=== PATIENT | female | born 1970 | race Caucasian/White ===

== ENCOUNTER 2017-11-02 05:54 | Inpatient (IN) | payer MEDICAID ==
[~2017-11-02] VITALS: Ht 180.3 cm; Wt 123.6 kg
[~2017-11-02 05:54] MED LIST: AMLO5TAB2 PO; ASPI81CH43 PO; Atorvastatin Calcium PO; CARV6.2551 PO; FURO40TA4 PO; GLY5T PO; LOSA50TA6 PO; METF-370 PO; POTA20TA53 PO; TRAM50TA2 PO
[2017-11-02 06:43] LABS: Basophils # (auto) 0.1 uL; Basophils % (auto) 1.1 % (0.0-2.0); Eosinophils # (auto) 0.2 uL; Eosinophils % (auto) 2.1 % (0.0-7.0); Hematocrit 44.5 % (36.0-46.0); Hemoglobin 14.9 g/dL (12.2-16.2); Lymphocytes # (auto) 1.5 uL; Lymphocytes % (auto) 13.7 % (10.0-50.0); Mean Corpuscular Hemoglobin 28.8 pg (28.0-32.0); Mean Corpuscular Hgb Conc. 33.5 g/dL (32.0-36.0); Mean Corpuscular Volume 86.1 fL (80.0-100.0); Monocytes # (auto) 0.6 uL; Monocytes % (auto) 5.1 % (0.0-12.0); Neutrophils # (auto) 8.6 uL; Nucleated Red Blood Cells % 0.2 %; Platelet Count (auto) 276 10^3/uL (140-450); Red Blood Cells 5.17 10^6/uL (4.0-5.20); Red Cell Distribution Width 16.8 % (11.8-14.3)
[2017-11-02 06:57] LABS: INR 0.98 (0.9-1.15); Partial Thromboplastin Time 26.9 sec (23.78-33.04); Prothrombin Time 10.5 sec (9.27-12.13)
[2017-11-02 07:04] LABS: BUN/Creatinine Ratio 11.5; Calcium 7.7 mg/dL (8.5-10.1); Magnesium 2.2 mg/dL (1.6-2.6); Potassium 3.7 mmol/L (3.5-5.1)
[2017-11-02 07:19] LABS: Bilirubin, Total 1.3 mg/dL (0.2-1.0); Total Protein 7.4 g/dL (6.4-8.2)
[2017-11-02] MEDS ORDERED: methylPREDNISolone SOD SUCC 125 MG/2 ML VL IV ONE (07:45)
[2017-11-02] MEDS ORDERED: ENOXAPARIN SOD 150 MG/1 ML SYRINGE SC ONE (07:45)
[2017-11-02] MEDS ORDERED: ASPirin 81 mg TAB PO ONE (07:45)
[2017-11-02] MEDS ORDERED: ONDANSETRON HCL 4 MG/2 ML VIAL IV ONE (07:45)
[2017-11-02] MEDS ORDERED: MORPHINE SULFATE 8mg/ml INJ SDV IV ONE (07:45)
[2017-11-02] MEDS ORDERED: InsuLIN REG 1unit/0.01ml Soln (100units/ml) IV ONE (08:15)
[2017-11-02] MEDS ORDERED: FUROSEMIDE 40 MG/4 ML VIAL IV ONE (08:15)
[2017-11-02] MEDS ORDERED: LACTULOSE 20Gm/30ML SOLN PO PRN (08:30)
[2017-11-02] MEDS ORDERED: NITROGLYCERIN 0.4 MG SL TAB SL PRN (08:30)
[2017-11-02] MEDS ORDERED: MORPHINE SULFATE 8mg/ml INJ SDV IV PRN (08:45)
[2017-11-02] MEDS ORDERED: TEMAZEPAM 15 MG CAP PO PRN (08:45)
[2017-11-02] MEDS ORDERED: ACETAMINOPHEN 500 MG TAB PO PRN (08:45)
[2017-11-02] MEDS ORDERED: ALBUTEROL SULF 2.5 MG/0.5ML(0.5%) NEB SOLN NEB PRN (08:45)
[2017-11-02] MEDS ORDERED: DEXTROSE (50%) 50ML SYRG IV PRN (08:45)
[2017-11-02] MEDS ORDERED: HYDROcodone-ACET 5/325MG TAB PO PRN (08:45)
[2017-11-02] MEDS ORDERED: hydrALAZINE HCL 25 MG TAB PO PRN (09:30)
[2017-11-02] MEDS ORDERED: CLOPIDOGREL 300 MG TAB PO ONE (09:45)
[2017-11-02] MEDS ORDERED: BUMETANIDE (0.25MG/ML) 4 ML VIAL IV ONE (09:45)
[2017-11-02] MEDS ORDERED: FUROSEMIDE 40 MG/4 ML VIAL IV SCH (10:00)
[2017-11-02] MEDS ORDERED: NITROGLYCERIN 0.4 MG SL TAB SL ONE (10:00)
[2017-11-02] MEDS ORDERED: CARVEDILOL 3.125 MG TAB PO SCH (10:00)
[2017-11-02] MEDS ORDERED: ENALAPRIL MALEATE 2.5 MG TAB PO SCH (10:00)
[2017-11-02] MEDS ORDERED: cloNIDine 0.3 mg/24hr 7DAY PATCH TD SCH (10:00)
[2017-11-02] MEDS: PROMETHAZINE HCL 25 MG/ML 1ML IV PRN ×2 (10:45→23:59)
[2017-11-02] MEDS: MORPHINE SULFATE 8mg/ml INJ SDV IV PRN ×2 (10:45→23:59)
[2017-11-02] MEDS: cefTRIAXone 1GM/10ml IVPUSH 10 ML IV SCH (10:45)
[2017-11-02] MEDS: POTASSIUM CHL 20 Meq TABLET PO SCH (10:47)
[2017-11-02] MEDS: ENALAPRIL MALEATE 2.5 MG TAB PO SCH ×2 (10:47→22:10)
[2017-11-02] MEDS: LOSARTAN POTASSIUM 50 MG TAB PO SCH (10:48)
[2017-11-02] MEDS: PANTOPRAZOLE 40 MG TAB PO SCH (10:48)
[2017-11-02] MEDS: CARVEDILOL 12.5 MG TAB PO SCH ×2 (10:48→22:10)
[2017-11-02] MEDS: LORazepam 0.5 MG TAB PO PRN (10:49)
[2017-11-02] MEDS: glyBURIDE 5 MG TAB PO SCH ×2 (10:49→18:04)
[2017-11-02] MEDS: amLODIPine BESYLATE 5 MG TAB PO SCH (10:50)
[2017-11-02] MEDS: NITROGLYCERIN 50MG/250ML 250 ML IV SCH (11:10)
[2017-11-02 11:40] LABS: Urine Bacteria NONE SEEN /hpf (None Seen); Urine Blood Negative /uL (Negative); Urine Hyaline Cast FEW /lpf (0 - 2); Urine Specific Gravity 1.025 (1.001-1.035); Urine WBC 1 /hpf (0 - 5)
[2017-11-02 11:56] LABS: Alcohol, Urine < 3.0 mg/dL (0-5); Amphetamine Screen, Urine POSITIVE (NEGATIVE); Barbiturate Scree,Urine NEGATIVE (NEGATIVE); Benzodiazephine Screen, Urine NEGATIVE (NEGATIVE); Cannabinoid Screen, Urine NEGATIVE (NEGATIVE); Cocaine Screen, Urine NEGATIVE (NEGATIVE); Opiate Scree,Urine NEGATIVE (NEGATIVE); Phencyclidine Screen, Urine NEGATIVE (NEGATIVE)
[2017-11-02] MEDS: IPRATROPIUM BROM 0.5 MG/2.5ML INH SOL NEB SCH ×2 (12:00→18:40)
[2017-11-02] MEDS: ALBUTEROL SULF 2.5 MG/0.5ML(0.5%) NEB SOLN NEB SCH ×2 (12:00→18:40)
[2017-11-02] MEDS: ACCU-CHEK COMFORT CURVE STRIP VI SCH ×3 (12:14→20:11)
[2017-11-02] MEDS: InsuLIN REG 1unit/0.01ml Soln (100units/ml) SC SCH ×3 (12:15→20:11)
[2017-11-02] MEDS: ISOSORBIDE DINITRATE 10 MG TAB PO SCH ×2 (12:28→18:04)
[2017-11-02] MEDS: FUROSEMIDE 40 MG/4 ML VIAL IV SCH (18:03)
[2017-11-02] MEDS: methylPREDNISolone SOD SUCC 40 MG/ML VL IV SCH (20:11)
[2017-11-02] MEDS: ENOXAPARIN SOD 120 MG/0.8 ML SYRINGE SC SCH (20:12)
[2017-11-02 21:18] VITALS: BP 112/67
[2017-11-02] MEDS ORDERED: ATORVASTATIN CALCIUM LIPITOR PO SCH (22:00)
[2017-11-02] MEDS ORDERED: ATORVASTATIN 20 MG TAB PO SCH (22:00)
[2017-11-02] MEDS: ATORVASTATIN 20 MG TAB PO SCH (22:10)
[2017-11-03] MEDS: ACCU-CHEK COMFORT CURVE STRIP VI SCH ×6 (00:04→21:07)
[2017-11-03] MEDS: InsuLIN REG 1unit/0.01ml Soln (100units/ml) SC SCH ×6 (00:05→20:00)
[2017-11-03] MEDS: ALBUTEROL SULF 2.5 MG/0.5ML(0.5%) NEB SOLN NEB SCH ×4 (00:55→18:50)
[2017-11-03] MEDS: IPRATROPIUM BROM 0.5 MG/2.5ML INH SOL NEB SCH ×4 (00:55→18:50)
[2017-11-03 05:32] LABS: Basophils # (auto) 0 uL; Basophils % (auto) 0.2 % (0.0-2.0); Eosinophils # (auto) 0 uL; Hematocrit 40.6 % (36.0-46.0); Hemoglobin 13.4 g/dL (12.2-16.2); Lymphocytes % (auto) 6.4 % (10.0-50.0); Mean Corpuscular Hemoglobin 28.4 pg (28.0-32.0); Mean Corpuscular Hgb Conc. 33.1 g/dL (32.0-36.0); Mean Corpuscular Volume 85.9 fL (80.0-100.0); Monocytes # (auto) 0.5 uL; Neutrophils # (auto) 14.6 uL; Neutrophils % (auto) 90.4 % (37.0-80.0); Platelet Count (auto) 332 10^3/uL (140-450); Red Blood Cells 4.73 10^6/uL (4.0-5.20); White Blood Cell 16.1 10^3/uL (4.4-10.8)
[2017-11-03 05:50] LABS: Albumin 2.6 g/dL (3.4-5.0); BUN/Creatinine Ratio 16.3; Bilirubin, Total 0.6 mg/dL (0.2-1.0); Calcium 8.3 mg/dL (8.5-10.1); Potassium 4.3 mmol/L (3.5-5.1); Total Protein 6.7 g/dL (6.4-8.2)
[2017-11-03] MEDS: FUROSEMIDE 40 MG/4 ML VIAL IV SCH ×2 (06:00→19:04)
[2017-11-03] MEDS: ISOSORBIDE DINITRATE 10 MG TAB PO SCH ×3 (06:00→19:02)
[2017-11-03] MEDS: MORPHINE SULFATE 8mg/ml INJ SDV IV PRN (06:32)
[2017-11-03] MEDS: glyBURIDE 5 MG TAB PO SCH ×2 (06:59→19:02)
[2017-11-03] MEDS: methylPREDNISolone SOD SUCC 40 MG/ML VL IV SCH (08:12)
[2017-11-03] MEDS: ENOXAPARIN SOD 120 MG/0.8 ML SYRINGE SC SCH ×2 (08:12→21:07)
[2017-11-03] MEDS: cefTRIAXone 1GM/10ml IVPUSH 10 ML IV SCH (09:16)
[2017-11-03] MEDS ORDERED: CLOPIDOGREL BISULFATE 75 MG TAB PO ONE (10:00)
[2017-11-03] MEDS: POTASSIUM CHL 20 Meq TABLET PO SCH (10:19)
[2017-11-03] MEDS: ASPirin 81 mg TAB PO SCH (10:19)
[2017-11-03] MEDS: PANTOPRAZOLE 40 MG TAB PO SCH (10:19)
[2017-11-03] MEDS: CARVEDILOL 12.5 MG TAB PO SCH ×3 (10:20→23:00)
[2017-11-03] MEDS: NITROGLYCERIN 50MG/250ML 250 ML IV SCH (10:20)
[2017-11-03] MEDS: LOSARTAN POTASSIUM 50 MG TAB PO SCH (10:20)
[2017-11-03] MEDS: amLODIPine BESYLATE 5 MG TAB PO SCH (10:20)
[2017-11-03] MEDS: ENALAPRIL MALEATE 2.5 MG TAB PO SCH ×2 (10:20→22:02)
[2017-11-03 19:41] VITALS: BP 134/78
[2017-11-03 20:00] VITALS: BP 134/78
[2017-11-03] MEDS: ATORVASTATIN 20 MG TAB PO SCH (22:02)
[2017-11-04] VITALS: BP 123/76
[2017-11-04] MEDS: ALBUTEROL SULF 2.5 MG/0.5ML(0.5%) NEB SOLN NEB SCH ×4 (01:10→18:51)
[2017-11-04] MEDS: IPRATROPIUM BROM 0.5 MG/2.5ML INH SOL NEB SCH ×4 (01:10→18:51)
[2017-11-04] MEDS: ACCU-CHEK COMFORT CURVE STRIP VI SCH ×5 (04:03→21:24)
[2017-11-04] MEDS: InsuLIN REG 1unit/0.01ml Soln (100units/ml) SC SCH ×6 (04:04→17:44)
[2017-11-04 05:15] LABS: Basophils # (auto) 0.1 uL; Basophils % (auto) 0.9 % (0.0-2.0); Eosinophils # (auto) 0.1 uL; Eosinophils % (auto) 0.6 % (0.0-7.0); Hematocrit 41.1 % (36.0-46.0); Hemoglobin 13.5 g/dL (12.2-16.2); Lymphocytes # (auto) 2.7 uL; Lymphocytes % (auto) 18.5 % (10.0-50.0); Mean Corpuscular Hemoglobin 28.2 pg (28.0-32.0); Mean Corpuscular Hgb Conc. 32.9 g/dL (32.0-36.0); Mean Corpuscular Volume 85.9 fL (80.0-100.0); Monocytes % (auto) 6.7 % (0.0-12.0); Neutrophils # (auto) 10.8 uL; Neutrophils % (auto) 73.3 % (37.0-80.0); Platelet Count (auto) 334 10^3/uL (140-450); Red Blood Cells 4.79 10^6/uL (4.0-5.20); Red Cell Distribution Width 16.5 % (11.8-14.3); White Blood Cell 14.8 10^3/uL (4.4-10.8)
[2017-11-04 05:42] LABS: Calcium 8.3 mg/dL (8.5-10.1); Magnesium 2.2 mg/dL (1.6-2.6); Potassium 3.4 mmol/L (3.5-5.1)
[2017-11-04 05:50] LABS: BUN/Creatinine Ratio 25.4
[2017-11-04] MEDS: FUROSEMIDE 40 MG/4 ML VIAL IV SCH ×2 (06:00→17:43)
[2017-11-04] MEDS: ISOSORBIDE DINITRATE 10 MG TAB PO SCH ×3 (06:00→17:44)
[2017-11-04 07:00] VITALS: BP 118/78
[2017-11-04] MEDS: glyBURIDE 5 MG TAB PO SCH ×2 (07:18→17:43)
[2017-11-04] MEDS: MORPHINE SULFATE 8mg/ml INJ SDV IV PRN (07:22)
[2017-11-04 08:00] VITALS: BP 115/53
[2017-11-04] MEDS: ENOXAPARIN SOD 120 MG/0.8 ML SYRINGE SC SCH (08:27)
[2017-11-04] MEDS: cefTRIAXone 1GM/10ml IVPUSH 10 ML IV SCH (08:30)
[2017-11-04] MEDS: ASPirin 81 mg TAB PO SCH (10:22)
[2017-11-04] MEDS: PANTOPRAZOLE 40 MG TAB PO SCH (10:23)
[2017-11-04] MEDS: CARVEDILOL 12.5 MG TAB PO SCH ×2 (10:23→21:17)
[2017-11-04] MEDS: POTASSIUM CHL 20 Meq TABLET PO SCH (10:23)
[2017-11-04] MEDS: ENALAPRIL MALEATE 2.5 MG TAB PO SCH ×2 (10:25→22:20)
[2017-11-04 11:49] VITALS: BP 114/66
[2017-11-04] MEDS ORDERED: DEXTROSE (50%) 50ML SYRG IV PRN (12:00)
[2017-11-04] MEDS ORDERED: POTASSIUM CHL 20 Meq TABLET PO ONE (12:00)
[2017-11-04] MEDS ORDERED: ENA2.5T PO (12:03)
[2017-11-04] MEDS ORDERED: ISOS10TA2 PO (12:03)
[2017-11-04] MEDS ORDERED: CAR125T PO (12:03)
[2017-11-04] MEDS ORDERED: HYDR25TA35 PO (12:03)
[2017-11-04] MEDS ORDERED: CLO3P TD (12:03)
[2017-11-04 16:00] VITALS: BP 126/77
[2017-11-04] MEDS: traMADol HCL 50 MG TAB PO PRN (18:30)
[2017-11-04 19:43] VITALS: BP 116/61
[2017-11-04] MEDS: ATORVASTATIN 20 MG TAB PO SCH (21:18)
[2017-11-04] MEDS ORDERED: InsuLIN REG 1unit/0.01ml Soln (100units/ml) SC SCH (22:00)
[2017-11-05] MEDS: IPRATROPIUM BROM 0.5 MG/2.5ML INH SOL NEB SCH ×3 (00:44→11:49)
[2017-11-05] MEDS: ALBUTEROL SULF 2.5 MG/0.5ML(0.5%) NEB SOLN NEB SCH ×3 (00:44→11:49)
[2017-11-05 05:00] VITALS: BP 127/91
[2017-11-05] MEDS: traMADol HCL 50 MG TAB PO PRN (05:11)
[2017-11-05] MEDS: ISOSORBIDE DINITRATE 10 MG TAB PO SCH ×2 (05:43→15:15)
[2017-11-05] MEDS: FUROSEMIDE 40 MG/4 ML VIAL IV SCH (05:43)
[2017-11-05 06:07] LABS: Basophils # (auto) 0.1 uL; Basophils % (auto) 0.7 % (0.0-2.0); Eosinophils # (auto) 0.3 uL; Eosinophils % (auto) 3.1 % (0.0-7.0); Lymphocytes % (auto) 21.7 % (10.0-50.0); Mean Corpuscular Hemoglobin 28.4 pg (28.0-32.0); Mean Corpuscular Hgb Conc. 32.6 g/dL (32.0-36.0); Monocytes # (auto) 0.8 uL; Monocytes % (auto) 8.8 % (0.0-12.0); Neutrophils # (auto) 6.1 uL; Neutrophils % (auto) 65.7 % (37.0-80.0); Nucleated Red Blood Cells % 0.2 %; Platelet Count (auto) 314 10^3/uL (140-450); Red Blood Cells 4.94 10^6/uL (4.0-5.20); Red Cell Distribution Width 16.8 % (11.8-14.3); White Blood Cell 9.2 10^3/uL (4.4-10.8)
[2017-11-05] MEDS: ACCU-CHEK COMFORT CURVE STRIP VI SCH ×2 (06:16→11:52)
[2017-11-05] MEDS: InsuLIN REG 1unit/0.01ml Soln (100units/ml) SC SCH ×2 (06:23→12:29)
[2017-11-05 06:25] LABS: Calcium 7.9 mg/dL (8.5-10.1); Potassium 3.8 mmol/L (3.5-5.1)
[2017-11-05 06:28] LABS: BUN/Creatinine Ratio 25.7
[2017-11-05] MEDS: glyBURIDE 5 MG TAB PO SCH (06:28)
[2017-11-05 08:00] VITALS: BP 138/76
[2017-11-05] MEDS: ASPirin 81 mg TAB PO SCH (11:50)
[2017-11-05] MEDS: CARVEDILOL 12.5 MG TAB PO SCH (11:51)
[2017-11-05] MEDS: PANTOPRAZOLE 40 MG TAB PO SCH (11:51)
[2017-11-05] MEDS: POTASSIUM CHL 20 Meq TABLET PO SCH (11:51)
[2017-11-05] MEDS: ENALAPRIL MALEATE 2.5 MG TAB PO SCH (11:52)
[2017-11-05 12:00] VITALS: BP 140/90
[2017-11-05] MEDS: LORazepam 0.5 MG TAB PO PRN (12:30)
[2017-11-05 13:24] VITALS: BP 140/90
== END 2017-11-05 14:15 | disposition home or self-care (01) | DRG 194 ==
LOC: EDBD 05:54 → ER 06:00 → TELE 06:01 → DOU IN ICU 11-03 18:34 → TELE-EAST 11-04 23:00
PROVIDERS: ADMIT Internal Medicine; ATTEND Internal Medicine
DX: I13.0 Hypertensive heart and chronic kidney disease with heart failure and stage 1 through stage 4 chronic kidney disease, or unspecified chronic kidney disease (principal); J96.21 Acute and chronic respiratory failure with hypoxia; I21.4 Non-ST elevation (NSTEMI) myocardial infarction; I50.43 Acute on chronic combined systolic (congestive) and diastolic (congestive) heart failure; E11.21 Type 2 diabetes mellitus with diabetic nephropathy; E66.01 Morbid (severe) obesity due to excess calories; I42.9 Cardiomyopathy, unspecified; J44.9 Chronic obstructive pulmonary disease, unspecified; I11.0 Hypertensive heart disease with heart failure; E87.1 Hypo-osmolality and hyponatremia; I16.0 Hypertensive urgency; N18.9 Chronic kidney disease, unspecified; E11.22 Type 2 diabetes mellitus with diabetic chronic kidney disease; E11.65 Type 2 diabetes mellitus with hyperglycemia; F20.9 Schizophrenia, unspecified; F41.9 Anxiety disorder, unspecified; F32.9 Major depressive disorder, single episode, unspecified; K59.00 Constipation, unspecified; G47.00 Insomnia, unspecified; D72.829 Elevated white blood cell count, unspecified; F15.10 Other stimulant abuse, uncomplicated; I25.119 Atherosclerotic heart disease of native coronary artery with unspecified angina pectoris; Z80.1 Family history of malignant neoplasm of trachea, bronchus and lung; Z80.3 Family history of malignant neoplasm of breast; Z80.41 Family history of malignant neoplasm of ovary; Z68.38 Body mass index [BMI] 38.0-38.9, adult; Z80.8 Family history of malignant neoplasm of other organs or systems; Z81.8 Family history of other mental and behavioral disorders; Z82.0 Family history of epilepsy and other diseases of the nervous system; Z82.3 Family history of stroke; Z82.49 Family history of ischemic heart disease and other diseases of the circulatory system; Z79.899 Other long term (current) drug therapy; Z90.49 Acquired absence of other specified parts of digestive tract; Z83.3 Family history of diabetes mellitus; Z82.62 Family history of osteoporosis; Z87.891 Personal history of nicotine dependence; Z71.51 Drug abuse counseling and surveillance of drug abuser; Z91.14 Patient's other noncompliance with medication regimen; Z91.19 Patient's noncompliance with other medical treatment and regimen; Z95.810 Presence of automatic (implantable) cardiac defibrillator; Z99.81 Dependence on supplemental oxygen
CPT/HCPCS: 36415; 51702; 71045; 80048; 80053; 80061; 80307; 81001; 82550; 82962; 83036; 83735; 83880; 84443; 84484; 85025; 85379; 85610; 85652; 85730; 86141; 87081; 93005; 93306; 94640; 94761; 96372; 96374; 96375; 99291; J1815; J2270; J2405

== ENCOUNTER 2018-06-08 19:43 | Emergency (ER) | payer MEDICAID ==
[~2018-06-08] VITALS: Ht 177.8 cm; Wt 81.6 kg
[~2018-06-08 19:43] MED LIST changes: -AMLO5TAB2 PO; +CAR125T PO; +CLO3P TD; +ENA2.5T PO; +ISOS10TA2 PO; +LISI-646 PO; +LOSA-46 PO; -LOSA50TA6 PO; +TICA90TA PO
[2018-06-08 19:53] VITALS: BP 188/119
[2018-06-08] MEDS ORDERED: METOPROLOL TARTRATE 25 MG TAB PO ONE (20:30)
== END 2018-06-08 21:58 | disposition left against medical advice (07) ==
LOC: EDBD 19:43 → ER 19:43
DX: R07.89 Other chest pain (principal); Z53.21 Procedure and treatment not carried out due to patient leaving prior to being seen by health care provider
CPT/HCPCS: 93005

== ENCOUNTER 2018-06-09 02:18 | Inpatient (IN) | payer MEDICAID ==
[~2018-06-09] VITALS: Ht 177.8 cm; Wt 97.9 kg
[2018-06-09 07:07] LABS: Basophils # (auto) 0.2 uL; Basophils % (auto) 1.4 % (0.0-2.0); Eosinophils # (auto) 0.1 uL; Eosinophils % (auto) 1.4 % (0.0-7.0); Hematocrit 49.8 % (36.0-46.0); Hemoglobin 16.5 g/dL (12.2-16.2); Lymphocytes # (auto) 1.8 uL; Lymphocytes % (auto) 16.7 % (10.0-50.0); Mean Corpuscular Hemoglobin 28.4 pg (28.0-32.0); Mean Corpuscular Hgb Conc. 33.1 g/dL (32.0-36.0); Mean Corpuscular Volume 85.9 fL (80.0-100.0); Monocytes # (auto) 0.5 uL; Monocytes % (auto) 4.6 % (0.0-12.0); Neutrophils # (auto) 8.2 uL; Neutrophils % (auto) 75.9 % (37.0-80.0); Nucleated Red Blood Cells % 0.3 %; Platelet Count (auto) 338 10^3/uL (140-450); Red Blood Cells 5.79 10^6/uL (4.0-5.20); Red Cell Distribution Width 16.5 % (11.8-14.3); White Blood Cell 10.8 10^3/uL (4.4-10.8)
[2018-06-09 07:25] LABS: Albumin 3.3 g/dL (3.4-5.0); Calcium 8.5 mg/dL (8.5-10.1); Magnesium 2.2 mg/dL (1.6-2.6); Potassium 4.7 mmol/L (3.5-5.1)
[2018-06-09 07:44] LABS: BUN/Creatinine Ratio 11.5; Bilirubin, Total 1.1 mg/dL (0.2-1.0)
[2018-06-09] MEDS ORDERED: NITROGLYCERIN 0.4 MG SL TAB SL ONE (08:00)
[2018-06-09] MEDS ORDERED: ASPirin 81 mg TAB PO ONE (08:00)
[2018-06-09] MEDS ORDERED: FUROSEMIDE 20 MG/2 ML VIAL IV ONE (08:00)
[2018-06-09] MEDS ORDERED: ENOXAPARIN SOD 100 MG/1 ML SYRINGE SC ONE ×2 (08:00→17:00)
[2018-06-09] MEDS ORDERED: LABETALOL HCL 5 MG/ML ML 20ML VIAL IV ONE (08:30)
[2018-06-09] MEDS ORDERED: LORazepam 2MG/ML-1ML VIAL IV ONE (08:30)
[2018-06-09] MEDS ORDERED: NITROGLYCERIN 50MG/250ML 250 ML IV SCH (09:40)
[2018-06-09] MEDS ORDERED: cloNIDine 0.3 mg/24hr 7DAY PATCH TD SCH (09:45)
[2018-06-09] MEDS ORDERED: MORPHINE SULFATE 10 MG/ML INJ 1ML SDV IV PRN (09:45)
[2018-06-09] MEDS ORDERED: PROMETHAZINE HCL 25 MG/ML 1ML IV PRN (09:45)
[2018-06-09] MEDS ORDERED: ACETAMINOPHEN 500 MG TAB PO PRN (09:45)
[2018-06-09] MEDS ORDERED: DEXTROSE (50%) 50ML SYRG IV PRN (09:45)
[2018-06-09] MEDS ORDERED: cloNIDine HCL 0.1 MG TAB PO ONE (09:45)
[2018-06-09] MEDS ORDERED: NITROGLYCERIN 0.4 MG SL TAB SL PRN (09:45)
[2018-06-09] MEDS ORDERED: LACTULOSE 20Gm/30ML SOLN PO PRN (09:45)
[2018-06-09] MEDS ORDERED: ENOXAPARIN SOD 80 MG/0.8ML SYRINGE SC SCH (10:00)
[2018-06-09] MEDS: ASPirin 81 mg TAB PO SCH (10:00)
[2018-06-09] MEDS: FUROSEMIDE 40 MG/4 ML VIAL IV SCH ×2 (10:00→22:00)
[2018-06-09] MEDS: POTASSIUM CHL 20 Meq TABLET PO SCH (11:00)
[2018-06-09] MEDS: PANTOPRAZOLE 40 MG TAB PO SCH (11:00)
[2018-06-09] MEDS: glyBURIDE 5 MG TAB PO SCH (11:00)
[2018-06-09] MEDS: ACCU-CHEK COMFORT CURVE STRIP VI SCH ×3 (11:43→20:00)
[2018-06-09] MEDS: InsuLIN REG 1unit/0.01ml Soln (100units/ml) SC SCH ×3 (11:52→20:00)
[2018-06-09] MEDS ORDERED: ISOSORBIDE DINITRATE 20 MG PO SCH (12:00)
[2018-06-09] MEDS: SODIUM CHLOR 0.9% PF (SALINE LOCK) 10ML VIAL/SYR IV SCH ×2 (13:36→22:57)
[2018-06-09] MEDS ORDERED: CARVEDILOL 12.5 MG TAB PO ONE (17:00)
[2018-06-09] MEDS: LORazepam 0.5 MG TAB PO PRN (17:33)
[2018-06-09] MEDS ORDERED: IODIXANOL 320MG/ML 100ML BTL IV ONE (18:12)
[2018-06-09] MEDS ORDERED: LIDOCAINE 2%HCL (LOCAL ANESTH.) INJ 20ML MDV ONE (18:12)
[2018-06-09] MEDS ORDERED: ANGIOMAX 250 MG VIAL IV ONE ×2 (18:16→19:33)
[2018-06-09] MEDS ORDERED: VERAPAMIL 2.5MG/ML INJ 2ML VIAL IV ONE (18:16)
[2018-06-09] MEDS ORDERED: fentaNYL CITRATE 100 MCG/2 ML VL ONE (18:16)
[2018-06-09] MEDS ORDERED: SODIUM CHL 0.9% 50 ML ONE ×3 (18:17→19:33)
[2018-06-09] MEDS ORDERED: MIDAZOLAM HCL 1MG/1ML-2 ML VIAL ONE (18:17)
[2018-06-09] MEDS ORDERED: NITROGLYCERIN 5MG/ML 10ML VIAL IV ONE (18:18)
[2018-06-09 19:31] LABS: Partial Thromboplastin Time 29.2 sec (23.78-33.04); Prothrombin Time 10.7 sec (9.27-12.13)
[2018-06-09] MEDS ORDERED: TICAGRELOR 90 MG TAB ONE (19:41)
[2018-06-09] MEDS ORDERED: FUROSEMIDE 20 MG/2 ML VIAL ONE ×2 (19:41→19:42)
[2018-06-09] MEDS ORDERED: EPTIFIBATIDE INJ (2MG/ML) 10ML VIAL IV ONE (19:42)
[2018-06-09] MEDS ORDERED: ATORVASTATIN 20 MG TAB PO SCH (22:00)
[2018-06-09] MEDS: NITROGLYCERIN 50MG/250ML 250 ML IV SCH (22:01)
--- NOTE | 2018-06-09 22:25 | NUR ---
Admit to [facility] admitted to [facility] via gurney on cardiac nurse practitioner, and portable 02. Patient transfered to bed, connected to unit monitoring and oxygen, and weighed by bedscale. Patient oriented to Antonietta Rashid, primary RN, unit, room, bed, and unit policies regarding patient care and visiting hours. All questions and concerns addressed, patient verbalized understanding. Pt very drowsy and weak. Fall precautions in place. Will continue to monitor.
[2018-06-09 22:27] VITALS: BP 133/85
[2018-06-09] MEDS: CARVEDILOL 3.125 MG TAB PO SCH (22:55)
[2018-06-09] MEDS: TICAGRELOR 90 MG TAB PO SCH (22:56)
[2018-06-09] MEDS: FAMOTIDINE (10MG/ML) 2ML VL IV SCH (22:57)
[2018-06-09] MEDS: MORPHINE SULFATE 10 MG/ML INJ 1ML SDV IV PRN (23:09)
[2018-06-10] VITALS (39 sets, daily range): BP systolic 114–168; BP diastolic 70–132
[2018-06-10] MEDS: ACCU-CHEK COMFORT CURVE STRIP VI SCH ×5 (00:38→21:43)
[2018-06-10] MEDS: glyBURIDE 5 MG TAB PO SCH ×3 (00:43→21:59)
[2018-06-10] MEDS: InsuLIN REG 1unit/0.01ml Soln (100units/ml) SC SCH ×5 (00:43→21:44)
[2018-06-10] MEDS: LORazepam 0.5 MG TAB PO PRN ×2 (01:42→13:01)
[2018-06-10] MEDS ORDERED: ENOXAPARIN SOD 150 MG/1 ML SYRINGE SC SCH (04:00)
[2018-06-10] MEDS: MORPHINE SULFATE 10 MG/ML INJ 1ML SDV IV PRN (04:18)
[2018-06-10] MEDS: SODIUM CHLOR 0.9% PF (SALINE LOCK) 10ML VIAL/SYR IV SCH ×3 (06:00→21:57)
[2018-06-10 06:33] LABS: Basophils # (auto) 0.1 uL; Basophils % (auto) 0.6 % (0.0-2.0); Eosinophils # (auto) 0.3 uL; Eosinophils % (auto) 2.8 % (0.0-7.0); Hemoglobin 16.5 g/dL (12.2-16.2); Lymphocytes # (auto) 1.5 uL; Lymphocytes % (auto) 12.7 % (10.0-50.0); Mean Corpuscular Hemoglobin 28.7 pg (28.0-32.0); Mean Corpuscular Hgb Conc. 33.6 g/dL (32.0-36.0); Mean Corpuscular Volume 85.4 fL (80.0-100.0); Monocytes # (auto) 0.6 uL; Monocytes % (auto) 5.3 % (0.0-12.0); Neutrophils # (auto) 9.2 uL; Neutrophils % (auto) 78.6 % (37.0-80.0); Nucleated Red Blood Cells % 0.3 %; Platelet Count (auto) 291 10^3/uL (140-450); Red Blood Cells 5.73 10^6/uL (4.0-5.20); Red Cell Distribution Width 15.9 % (11.8-14.3); White Blood Cell 11.7 10^3/uL (4.4-10.8)
[2018-06-10 06:52] LABS: Albumin 2.9 g/dL (3.4-5.0); BUN/Creatinine Ratio 17.5; Calcium 8.2 mg/dL (8.5-10.1); Potassium 3.5 mmol/L (3.5-5.1)
[2018-06-10 06:57] LABS: Bilirubin, Total 1.9 mg/dL (0.2-1.0); Total Protein 7.2 g/dL (6.4-8.2)
--- NOTE | 2018-06-10 07:30 | NUR ---
RECEIVED PATIENT SITTING UP IN THE BED, A/O TIMES 4, O2 AT 2L BY N/C, PATIENT CAN USE THE BSC, PATIENT ON NITROGLYCERIN AT 10ML/HR INFUSING INTO THE LEFT BREAST BY THE IV PUMP, DRESSING TO THE RT WRIST FROM THE HEART CATH
--- NOTE | 2018-06-10 07:57 | NUR ---
Spoke to Dr. Ellsworth, new orders given for extra PO Potassium 20meq today, Dueñas if needed, and verified the lasix. GRIMALDO checking on pt to see how she is doing. Report given to Blossom LAZARO, care endorsed.
[2018-06-10] MEDS ORDERED: CLOPIDOGREL BISULFATE 75 MG TAB PO ONE (08:00)
[2018-06-10] MEDS ORDERED: POTASSIUM CHL 20 Meq TABLET PO ONE (08:00)
--- NOTE | 2018-06-10 08:16 | NUR ---
Notified pharmacy of change of accucheck to AC and HS instead of every 4 hours.
--- NOTE | 2018-06-10 08:18 | NUR ---
Pt stated anxiety during my shift. Ativan given. Later pt stated she was still anxious. No other meds available for anxiety. Later pt stated pain, at 0400 pt was given Morphine per order for pain. Pt was able to relax after and rested the rest of shift.
--- NOTE | 2018-06-10 08:30 | NUR ---
SAT UP IN BED AND ATE HER BREAKFAST NO HELP NEEDED
--- NOTE | 2018-06-10 09:30 | NUR ---
SITTING UP IN BED WITH EYES CLOSED, PATIENT HAS SLEEP APNEA, ASK HER ABOUT AND STATED SHE REFUSES TO WEAR A BIPAP AT HOME
[2018-06-10] MEDS ORDERED: LOSARTAN POTASSIUM 50 MG TAB PO SCH (10:00)
[2018-06-10] MEDS ORDERED: CARVEDILOL 12.5 MG TAB PO SCH (10:00)
[2018-06-10] MEDS ORDERED: ENOXAPARIN SOD 120 MG/0.8 ML SYRINGE SC SCH (10:00)
[2018-06-10] MEDS ORDERED: LISINOPRIL 20 MG TAB PO SCH (10:00)
[2018-06-10] MEDS: FUROSEMIDE 40 MG/4 ML VIAL IV SCH ×2 (10:45→21:58)
[2018-06-10] MEDS: FAMOTIDINE (10MG/ML) 2ML VL IV SCH ×2 (10:45→21:58)
--- NOTE | 2018-06-10 10:45 | NUR ---
DISCUSSED MEDICATIONS WITH THE PATIENT REGARDING THE DOSAGE, USAGE, AND THE SIDE EFFECTS, VERBALIZED SHE UNDERSTOOD AND MEDS GIVEN ORDERED
[2018-06-10] MEDS: POTASSIUM CHL 20 Meq TABLET PO SCH (10:46)
[2018-06-10] MEDS: CARVEDILOL 3.125 MG TAB PO SCH ×2 (10:46→21:59)
[2018-06-10] MEDS: TICAGRELOR 90 MG TAB PO SCH ×2 (10:46→21:59)
[2018-06-10] MEDS: ENOXAPARIN SOD 120 MG/0.8 ML SYRINGE SC SCH ×2 (10:47→22:00)
[2018-06-10] MEDS: PANTOPRAZOLE 40 MG TAB PO SCH (10:47)
[2018-06-10] MEDS: ASPirin 81 mg TAB PO SCH (10:49)
--- NOTE | 2018-06-10 11:00 | NUR ---
ULTRAM GIVEN FOR PAIN TO THE BACK
[2018-06-10] MEDS: traMADol HCL 50 MG TAB PO PRN ×2 (11:02→18:09)
--- NOTE | 2018-06-10 11:26 | NUR ---
MIDLINE PLACEMENT Midline placed to the right upper arm via the basilic vein x1 attempt. 18g, 10cm. Positive blood return and flushes easily. Secured with a biodisk, securement device and transparent dressing.
--- NOTE | 2018-06-10 11:50 | NUR ---
FAMILY IN TO VISIT WITH THE PATIENT, PATIENT GOT UP TO THE BSC AND URINATED NO HELP NEEDED
--- NOTE | 2018-06-10 12:45 | NUR ---
ATE LUNCH AND TOLERATED, STILL ON THE NITROGLYCERIN DRIP
--- NOTE | 2018-06-10 13:00 | NUR ---
ATIVAN FOR ANXIETY
--- NOTE | 2018-06-10 14:00 | NUR ---
PATIENT SITTING UP IN BED, O2 AT 3L DUE TO PATIENT SAT DROPPING WHEN SHE IS SLEEPING
--- NOTE | 2018-06-10 15:25 | NUR ---
SITTING UP IN THE BED, PATIENT BREATHS THROUGH HER MOUTH WHEN SHE IS SLEEPING AND HER O2 SAT DROPS AT TIMES
--- NOTE | 2018-06-10 16:34 | NUR ---
SITTING UP IN BED SLEEPING ON AND OFF
[2018-06-10 16:50] LABS: Urine Bacteria NONE SEEN /hpf (None Seen); Urine Blood Negative /uL (Negative); Urine Mucus FEW (None Seen); Urine Specific Gravity 1.011 (1.001-1.035); Urine WBC 6 /hpf (0 - 5)
[2018-06-10 17:06] LABS: Alcohol, Urine < 3.0 mg/dL (0-5); Amphetamine Screen, Urine POSITIVE (NEGATIVE); Barbiturate Scree,Urine NEGATIVE (NEGATIVE); Benzodiazephine Screen, Urine NEGATIVE (NEGATIVE); Cannabinoid Screen, Urine NEGATIVE (NEGATIVE); Cocaine Screen, Urine NEGATIVE (NEGATIVE); Opiate Scree,Urine NEGATIVE (NEGATIVE); Phencyclidine Screen, Urine NEGATIVE (NEGATIVE)
--- NOTE | 2018-06-10 17:30 | NUR ---
SITTING UP IN BED WITH EYES CLOSED APPEARS TO BE BE SLEEPING
--- NOTE | 2018-06-10 18:22 | NUR ---
ULTRAM GIVEN FOR PAIN, SITTING UP IN THE BED, NITROGLYCERIN DRIP CONTINUES AT 3L INFUSING INTO THE ELSIE MIDLINE, O2 AT 3L BY N/C, US SENT TO THE KRYSTYNA , ABLE TO USE THE BSC, RT WRIST SITE BENIGN, DRESSING DRY AND PATIENT ABLE TO MOVE HER FINGERS, AND NO NUMBNESS, SALEIN LOCK TO THE LEFT BREAST INTACT AND PATENT, WILL CONTINUE TO MONITOR AND GIVE REPORT TO THE NEXT SHIFT
--- NOTE | 2018-06-10 20:40 | NUR ---
C/O CHEST PAIN EKG DONE. IT SHOWS SINUS RHYTHM. HR 78 BP 148/90MMHG, SAT. 94%.
--- NOTE | 2018-06-10 20:55 | NUR ---
PATIENT IS SLEEPING. VITAL SIGNS HR 78, BP 137/81MMHG, SAT 97%
[2018-06-10] MEDS: ATORVASTATIN 20 MG TAB PO SCH (21:58)
[2018-06-10] MEDS: NITROGLYCERIN 50MG/250ML 250 ML IV SCH (22:06)
[2018-06-11] VITALS (50 sets, daily range): BP systolic 108–168; BP diastolic 59–106
--- NOTE | 2018-06-11 | NUR ---
OUT OF BED OUT OF BED TO USE REST ROOM. V
[2018-06-11] MEDS: LORazepam 0.5 MG TAB PO PRN ×3 (00:46→23:10)
[2018-06-11] MEDS: MORPHINE SULFATE 10 MG/ML INJ 1ML SDV IV PRN (00:46)
--- NOTE | 2018-06-11 00:50 | NUR ---
C/O PAIN PATIENT COMPLAINS PAIN THEN SHE GOES TO SLEEP DURING NIGHT. AT THIS TIME SHE REQUESTED MORPHINE. MORPHINE 2 MG IV GIVEN ORDERED FOR GENERALIZED CHEST PAIN 12/14.
[2018-06-11 05:29] LABS: Basophils # (auto) 0.1 uL; Basophils % (auto) 0.9 % (0.0-2.0); Eosinophils # (auto) 0.5 uL; Eosinophils % (auto) 4.7 % (0.0-7.0); Hemoglobin 15.3 g/dL (12.2-16.2); Lymphocytes # (auto) 1.9 uL; Lymphocytes % (auto) 19.8 % (10.0-50.0); Mean Corpuscular Hemoglobin 28.7 pg (28.0-32.0); Mean Corpuscular Hgb Conc. 33.3 g/dL (32.0-36.0); Monocytes # (auto) 0.7 uL; Monocytes % (auto) 6.9 % (0.0-12.0); Neutrophils # (auto) 6.6 uL; Neutrophils % (auto) 67.7 % (37.0-80.0); Nucleated Red Blood Cells % 0.2 %; Platelet Count (auto) 262 10^3/uL (140-450); Red Blood Cells 5.35 10^6/uL (4.0-5.20); White Blood Cell 9.7 10^3/uL (4.4-10.8)
[2018-06-11 05:39] LABS: Alanine Aminotransferase 24 U/L (13-56); Albumin 2.6 g/dL (3.4-5.0); Anion Gap 11 (5-15); Aspartate Aminotransferase 44 U/L (15-37); BUN/Creatinine Ratio 17.9; Blood Urea Nitrogen 21 mg/dL (7-18); Calcium 7.9 mg/dL (8.5-10.1); Carbon Dioxide 22 mmol/L (21-32); Chloride 104 mmol/L (98-107); GFR African American 63 mL/min; GFR Non-African American 52 mL/min; Glucose 192 mg/dL (74-106); Potassium 3.7 mmol/L (3.5-5.1); Sodium 137 mmol/L (136-145)
[2018-06-11 05:40] LABS: Alkaline Phosphatase 90 U/L (45-117); Bilirubin, Total 1.4 mg/dL (0.2-1.0); Total Protein 6.9 g/dL (6.4-8.2)
[2018-06-11] MEDS: SODIUM CHLOR 0.9% PF (SALINE LOCK) 10ML VIAL/SYR IV SCH ×3 (05:50→21:48)
[2018-06-11] MEDS: InsuLIN REG 1unit/0.01ml Soln (100units/ml) SC SCH ×4 (06:39→21:48)
[2018-06-11] MEDS: ACCU-CHEK COMFORT CURVE STRIP VI SCH ×4 (06:39→21:35)
--- NOTE | 2018-06-11 07:30 | NUR ---
RECEIVED PATIENT LYING IN BED SLEEPING WAKEN UP TO NAME BEING CALLED BUT STATED SHE WAS TIRED AND NOT READY TO GET UP, O2 AT 3L BY N/C, NO COMPLAINTS OF PAIN, NITROGLYCERIN DRIP AT 3ML/HR INFUSING INTO THE ELSIE BY THE IV PUMP, CONTINUE TO MONITOR
--- NOTE | 2018-06-11 08:30 | NUR ---
WOKE HER UP TO EAT BREAKFAST BUT STATED SHE WAS NOT READY
--- NOTE | 2018-06-11 09:30 | NUR ---
GOT UP AND ATE HER BREAKFAST
[2018-06-11] MEDS ORDERED: SOD CHL 0.45% 1,000 ML IV SCH (10:15)
--- NOTE | 2018-06-11 10:30 | NUR ---
FRIEND IN TO VISIT WITH THE PATIENT
[2018-06-11] MEDS: FUROSEMIDE 40 MG/4 ML VIAL IV SCH ×2 (11:05→21:49)
[2018-06-11] MEDS: ASPirin 81 mg TAB PO SCH (11:06)
[2018-06-11] MEDS: FAMOTIDINE (10MG/ML) 2ML VL IV SCH ×2 (11:06→21:49)
[2018-06-11] MEDS: TICAGRELOR 90 MG TAB PO SCH ×2 (11:06→21:48)
[2018-06-11] MEDS: CARVEDILOL 3.125 MG TAB PO SCH ×2 (11:07→21:48)
[2018-06-11] MEDS: POTASSIUM CHL 20 Meq TABLET PO SCH (11:07)
[2018-06-11] MEDS: glyBURIDE 5 MG TAB PO SCH ×2 (11:08→21:48)
[2018-06-11] MEDS: ENOXAPARIN SOD 120 MG/0.8 ML SYRINGE SC SCH ×2 (11:09→21:47)
[2018-06-11] MEDS: PANTOPRAZOLE 40 MG TAB PO SCH (11:09)
--- NOTE | 2018-06-11 11:20 | NUR ---
EXPLAIN MEDICATIONS TO THE PATIENT REGARDING THE DOSAGE, USAGE AND THE SIDE EFFECTS, VERBALIZED THAT SHE UNDERSTOOD AND MEDS GIVEN ORDERED, ALSO MEDICATED FOR PAIN TO THE BODY WITH ULTRAM
[2018-06-11] MEDS: traMADol HCL 50 MG TAB PO PRN ×2 (11:21→20:04)
--- NOTE | 2018-06-11 12:00 | NUR ---
FRIEND LEFT AND WENT HOME
--- NOTE | 2018-06-11 12:15 | NUR ---
UP TO THE BSC AND GOT DIZZY BUT STATES BETTER AFTER SHE WENT BACK TO BED
--- NOTE | 2018-06-11 12:42 | NUR ---
LYING IN BED, O2 AT 3L BY N/C O2 SAT 98%, .45 INFUSING INTO THE LEFT BREAST BY THE IV PUMP AND NITROGLYCERIN DRIP INFUSING INTO THE ELSIE BY THE IV PUMP,
--- NOTE | 2018-06-11 13:05 | NUR ---
MEDICATED FOR ANXIETY WITH ATIVAN
--- NOTE | 2018-06-11 13:30 | NUR ---
ATE LUNCH NO HELP NEEDED
--- NOTE | 2018-06-11 14:16 | NUR ---
DR HOFF IN TO SEE THE PATIENT AND ONLY NEW LABS ORDERED FOR TOMORROW
--- NOTE | 2018-06-11 15:09 | NUR ---
STATES NOSE IS DRY AND PLACED AND HUMIDIFIER TO THE O2 AT 3L
--- NOTE | 2018-06-11 15:30 | NUR ---
SPOKE WITH DR PEREA AND STATED TO TAPER THE NITRO OFF OF THE PATIENT, DECREASED TO 2ML/HR
--- NOTE | 2018-06-11 16:30 | NUR ---
SITTING UP IN THE BED DOZING ON AND OFF
--- NOTE | 2018-06-11 17:13 | NUR ---
NO CHANGE WILL DECREASE NITRO TO 1ML/HR
--- NOTE | 2018-06-11 17:16 | NUR ---
NO CHEST PAIN
--- NOTE | 2018-06-11 17:20 | NUR ---
states she can't go back to sleep express to her that it is just 1700 in the evening and that she has been sleeping most of the day and dinner would be her soon and she should ask for a sleeping pill tonmalik so she can go to sleep
--- NOTE | 2018-06-11 18:29 | NUR ---
DENIES CHEST PAIN , UP TO THE BCS AND URINATED, A/O TIMES 4, DRESSING TO THE RT WRIST DRY AND INTACT, SLIGHTLY SWOLLEN BUT STILL THE SAME THIS MORNING, .45 AT 75ML/HR INFUSING INTO THE ELSIE MIDLINE BY THE IV PUMP, NITROGLYCERIN HAS BEEN DISCONTINUED AND PATIENT MAY BE TRANSFERRED TO TELE STATUS, O2 AT 3L BY N/C, SALINE LOCK TO THE LEFT BREAST INTACT AN PATENT, WILL CONTINUE TO MONITOR AND GIVE REPORT TO THE NEXT SHIFT
--- NOTE | 2018-06-11 20:50 | NUR ---
Report received Report received from TEJAS Esposito. will await pt's arrival
--- NOTE | 2018-06-11 20:51 | NUR ---
Report given to Thalia LAZARO. Pt stable at time of report. Informed Thalia LAZARO of pt just now informing me of back hurting and itching. I noted a scratch tevin on her back where she had scratched it open. Optifoam placed and photo to be taken by Thalia LAZARO so pt can be transported as soon as possible.
--- NOTE | 2018-06-11 21:07 | NUR ---
Opening Shift Note Assumed care of patient, awake and alert. No S/S of distress/SOB or pain. Instructed on POC and to call for assist PRN, will continue to monitor for changes Q1hr and PRN. Bed locked and in lowest position, call light within reach, bed alarm on for safety. will continue to monitor pt.
--- NOTE | 2018-06-11 21:17 | NUR ---
Pt transported via bed to room 234. Stable alert and oriented. Care endorsed to Thalia LAZARO.
[2018-06-11] MEDS: ATORVASTATIN 20 MG TAB PO SCH (21:47)
[2018-06-11] MEDS: TEMAZEPAM 15 MG CAP PO PRN (21:49)
--- NOTE | 2018-06-11 22:00 | NUR ---
PER PT UPDATED ALLERGIES PT reports that when was given morphine began to feel itchy on back and began to scratch. States believes she had allergic reaction to morphine. Informed will update allergies and continue to monitor pt.
--- NOTE | 2018-06-12 04:04 | NUR ---
SECOND IV BAG OF 0.45NS running
[2018-06-12 05:00] VITALS: BP 136/82
[2018-06-12 05:27] LABS: Basophils # (auto) 0.1 uL; Basophils % (auto) 0.7 % (0.0-2.0); Eosinophils # (auto) 0.5 uL; Eosinophils % (auto) 5.1 % (0.0-7.0); Hematocrit 45.3 % (36.0-46.0); Hemoglobin 14.9 g/dL (12.2-16.2); Lymphocytes # (auto) 2.6 uL; Lymphocytes % (auto) 26.3 % (10.0-50.0); Mean Corpuscular Hemoglobin 28.2 pg (28.0-32.0); Mean Corpuscular Hgb Conc. 32.9 g/dL (32.0-36.0); Mean Corpuscular Volume 85.8 fL (80.0-100.0); Monocytes # (auto) 0.7 uL; Neutrophils # (auto) 5.9 uL; Neutrophils % (auto) 60.9 % (37.0-80.0); Nucleated Red Blood Cells % 0.1 %; Platelet Count (auto) 296 10^3/uL (140-450); Red Blood Cells 5.28 10^6/uL (4.0-5.20); Red Cell Distribution Width 16.1 % (11.8-14.3); White Blood Cell 9.7 10^3/uL (4.4-10.8)
[2018-06-12 05:42] LABS: Albumin 2.7 g/dL (3.4-5.0); Calcium 7.8 mg/dL (8.5-10.1); Magnesium 2.2 mg/dL (1.6-2.6); Potassium 3.7 mmol/L (3.5-5.1)
[2018-06-12 05:45] LABS: BUN/Creatinine Ratio 20.3; Bilirubin, Total 1.2 mg/dL (0.2-1.0); Total Protein 7.2 g/dL (6.4-8.2)
[2018-06-12] MEDS: InsuLIN REG 1unit/0.01ml Soln (100units/ml) SC SCH ×4 (06:15→21:34)
[2018-06-12] MEDS: SODIUM CHLOR 0.9% PF (SALINE LOCK) 10ML VIAL/SYR IV SCH ×3 (06:15→21:37)
[2018-06-12] MEDS: ACCU-CHEK COMFORT CURVE STRIP VI SCH ×4 (06:15→21:29)
[2018-06-12 08:32] VITALS: BP 132/81
--- NOTE | 2018-06-12 09:15 | NUR ---
was at bedside - verbal orders Dr. Sosa was at bedside discussing POC with the patient and this RN. Verbal orders received and read back. Orders to be placed by this RN per the request of the MD.
--- NOTE | 2018-06-12 09:18 | NUR ---
RE: fluids Verbally spoke with Dr. Sosa regarding IV fluid replacement. Informed MD that it was endorsed to this RN to finish bag of fluids currently infusing and then stop fluids. MD verbalized understanding and ordered to continue fluid bag until bag is finished. MD to review orders.
--- NOTE | 2018-06-12 10:42 | NUR ---
RE: Brilinta Medication not available at this time. Call pharmacy to notify. Pharmacy to send medication to the unit.
[2018-06-12] MEDS: ENOXAPARIN SOD 120 MG/0.8 ML SYRINGE SC SCH ×2 (10:54→21:28)
[2018-06-12] MEDS: POTASSIUM CHL 20 Meq TABLET PO SCH (10:54)
[2018-06-12] MEDS: ASPirin 81 mg TAB PO SCH (10:54)
[2018-06-12] MEDS: PANTOPRAZOLE 40 MG TAB PO SCH (10:54)
[2018-06-12] MEDS: CARVEDILOL 3.125 MG TAB PO SCH ×2 (10:55→21:27)
[2018-06-12] MEDS: FAMOTIDINE (10MG/ML) 2ML VL IV SCH ×2 (10:55→21:28)
[2018-06-12] MEDS: LISINOPRIL 20 MG TAB PO SCH (10:55)
[2018-06-12] MEDS: FUROSEMIDE 40 MG/4 ML VIAL IV SCH ×2 (10:56→21:28)
[2018-06-12] MEDS: TICAGRELOR 90 MG TAB PO SCH ×2 (11:07→21:28)
[2018-06-12] MEDS: glyBURIDE 5 MG TAB PO SCH ×2 (11:13→21:27)
--- NOTE | 2018-06-12 11:21 | NUR ---
RE: Shower patient requesting to take a shower today. This RN notified Dr. Sosa. Patient is to receive bed bath only per MD. Will update patient.
--- NOTE | 2018-06-12 11:46 | NUR ---
RE: shower updated patient on MD's orders. Patient verbalized understanding. Patient refused bed bath.
[2018-06-12 12:10] VITALS: BP 132/86
--- NOTE | 2018-06-12 14:38 | NUR ---
MD was at bedside - ok to shower per Dr. Josey Morales was at bedside discussing POC with the patient and this RN. stated patient can take a shower and can be discharged tomorrow (06/13/18).
--- NOTE | 2018-06-12 16:00 | NUR ---
PT IS STILL SLEEPING. ATTEMPT P.T. TOMORROW.
[2018-06-12 16:43] VITALS: BP 111/73
[2018-06-12] MEDS: LORazepam 0.5 MG TAB PO PRN (17:24)
--- NOTE | 2018-06-12 18:46 | NUR ---
End of shift patient resting in bed with even and unlabored respirations on 3.5LPM NC. Fall precautions in place with bed in low locked position with call light within reach. BSC at bedside. Patient denies pain at this time. Will endorse care to NOC RN.
--- NOTE | 2018-06-12 20:30 | NUR ---
Opening Shift Note Received report from TEJAS Mcgarry. Assumed care of patient, apt resting. No S/S of distress/SOB or pain. Instructed on POC and to callfor assist PRN, will continue to monitor for changes Q1hr and PRN.
--- NOTE | 2018-06-12 20:40 | NUR ---
PT CONTINUE STABLE, SLEEPING, REPORT GIVEN TO DESTINEE LAZARO, CONTINUE MONITORING.
[2018-06-12] MEDS: ATORVASTATIN 20 MG TAB PO SCH (21:27)
[2018-06-12 21:30] VITALS: BP 133/85
--- NOTE | 2018-06-13 00:05 | NUR ---
CALL FROM [facility] PT had a run of Vtach Went to assess pt, pt eating no s/sx's of distress noted, asked pt if she felt fine any new symptoms in the past 5 minutes, stated no feels fine, she went the bathroom not to long ago. Asked if any SOB or Chest pain stated no. 12 Lead EKG done entered in chart, V/S Temp 97.5, BP 120/75, HR 71 RR 22 will continue to monitor pt.
--- NOTE | 2018-06-13 00:27 | NUR ---
KEVIN PEREA TO NOTIFY OF Change in rhythm Spoke with field operations farm manager passenger service representative and left message in regards to pt Run of Vtach- new onset. Will continue to monitor pt.
[2018-06-13] MEDS: TEMAZEPAM 15 MG CAP PO PRN (00:32)
--- NOTE | 2018-06-13 00:44 | NUR ---
CALL BACK FROM Josey PEREA Per Josey PEREA pt has an AICD, run Vtach to be expected, no orders given will continue to monitor pt.
[2018-06-13 05:00] VITALS: BP 131/74
[2018-06-13] MEDS: SODIUM CHLOR 0.9% PF (SALINE LOCK) 10ML VIAL/SYR IV SCH ×2 (06:00→12:06)
[2018-06-13] MEDS: ACCU-CHEK COMFORT CURVE STRIP VI SCH ×2 (06:43→12:06)
[2018-06-13] MEDS: InsuLIN REG 1unit/0.01ml Soln (100units/ml) SC SCH ×2 (06:45→12:05)
--- NOTE | 2018-06-13 06:45 | NUR ---
IV removal IV DC'd with clean sterile technique, catheter fully intact on R Chest. Pressure dressing applied to site. Patient tolerated well. NOTE:
--- NOTE | 2018-06-13 07:27 | NUR ---
CLOSING NOTE REport endorsed to day RN pt resting no s/sx's of distress noted
--- NOTE | 2018-06-13 08:17 | NUR ---
Morning note patient resting in bed with no s/s of distress noted. Patient is on 2LPM NC with no c/o pain or SOB. Instructed patient on POC, fall precautions and to call for assistance as needed. Patient verbalized understanding. Call light within reach. Saturated gauze noted at the IV removal site. Pressure held and gauze changed. New blanket and pillow case provided. Instructed patient to notify staff if further bleeding is noted. Patient verbalized understanding. Will continue to monitor q1hr & PRN.
[2018-06-13 09:00] VITALS: BP 118/72
[2018-06-13] MEDS: ENOXAPARIN SOD 120 MG/0.8 ML SYRINGE SC SCH (10:27)
[2018-06-13] MEDS: POTASSIUM CHL 20 Meq TABLET PO SCH (10:27)
[2018-06-13] MEDS: ASPirin 81 mg TAB PO SCH (10:27)
[2018-06-13] MEDS: FAMOTIDINE (10MG/ML) 2ML VL IV SCH (10:27)
[2018-06-13] MEDS: glyBURIDE 5 MG TAB PO SCH (10:27)
[2018-06-13] MEDS: CARVEDILOL 3.125 MG TAB PO SCH (10:28)
[2018-06-13] MEDS: FUROSEMIDE 40 MG/4 ML VIAL IV SCH (10:28)
[2018-06-13] MEDS: LISINOPRIL 20 MG TAB PO SCH (10:28)
[2018-06-13] MEDS: PANTOPRAZOLE 40 MG TAB PO SCH (10:37)
[2018-06-13] MEDS: TICAGRELOR 90 MG TAB PO SCH (10:37)
--- NOTE | 2018-06-13 11:28 | NUR ---
assessment Per consult drug use. Patient is positive for meth. I have provided patient with resources for inpatient and outpatient substance abuse facilities. Addendum: 06/14/18 at 0938 by Alexandria Arellano Amended: Links added.
--- NOTE | 2018-06-13 11:39 | NUR ---
NUTRITION ASSESSMENT NOTES Please refer to link notes of nutrition screen form filed under the intervention section of the plan of care for further details. Est. Needs: 1950 kcal to 2450 kcal (20-25 kcal/kgBW), 78 gms to 98 gms pro (0.8-1.0 gms/kgBW). Will continue to monitor pertinent labs and reassess nutrient need prn Thank you. Addendum: 06/13/18 at [address] Amended: Links added.
--- NOTE | 2018-06-13 11:44 | NUR ---
is at bedside Dr. Sosa is at bedside discussing POC and discharge plan with the patient. POC and discharge plan discussed with this RN. This RN to call prescriptions into [facility].
--- NOTE | 2018-06-13 11:51 | NUR ---
Prescriptions called into [facility] Prescriptions will be ready at approximately 1400 per tonay Neff. Will update the patient.
--- NOTE | 2018-06-13 12:14 | NUR ---
Patient taking a shower Supplies provided to the patient. BSC placed in shower for patient's safety. Midline covered. Telemonitor removed. Instructed patient on fall precautions and to call using the red pull cord for assistance. Patient verbalized understanding.
[2018-06-13 12:47] VITALS: BP 130/76
--- NOTE | 2018-06-13 14:43 | NUR ---
Discharge Discharge education and paperwork provided to the patient. Patient informed of discharge follow up appointment scheduled on June 15, 2018 at 1300 with PCP. Patient verbalized understanding to all. Instructed patient to obtain authorization from PCP to schedule a follow up appointment with Dr. Josey Morales. Patient verbalized understanding. Midline to the right upper arm removed with clean technique. Catheter intact. Pressure held and pressure dressing applied. No bleeding noted. Telemonitor removed, cleaned and returned to [employer] tech. Patient's personal belongings gathered by patient's sister and taken home today per the patient. Patient taken to private vehicle via wheelchair with no s/s of distress noted. Patient denies SOB and/or CP at this time. No s/s of distress noted at time of departure.
== END 2018-06-13 14:50 | disposition home or self-care (01) | DRG 174 ==
LOC: EDBD 02:18 → ER 02:18 → OVERFLOW 09:40 → DOU IN ICU 22:29 → TELE-EAST 06-11 21:08
PROVIDERS: ADMIT Internal Medicine; ATTEND Internal Medicine
PROC: 02703ZZ Dilation of Coronary Artery, One Artery, Percutaneous Approach (ICD-10-PCS; principal; 2018-06-09)
PROC: B2111ZZ Fluoroscopy of Multiple Coronary Arteries using Low Osmolar Contrast (ICD-10-PCS; 2018-06-09)
DX: I21.4 Non-ST elevation (NSTEMI) myocardial infarction (principal); I50.23 Acute on chronic systolic (congestive) heart failure; J96.10 Chronic respiratory failure, unspecified whether with hypoxia or hypercapnia; E11.21 Type 2 diabetes mellitus with diabetic nephropathy; I42.0 Dilated cardiomyopathy; E11.65 Type 2 diabetes mellitus with hyperglycemia; E44.1 Mild protein-calorie malnutrition; I13.0 Hypertensive heart and chronic kidney disease with heart failure and stage 1 through stage 4 chronic kidney disease, or unspecified chronic kidney disease; R65.10 Systemic inflammatory response syndrome (SIRS) of non-infectious origin without acute organ dysfunction; E66.01 Morbid (severe) obesity due to excess calories; E11.22 Type 2 diabetes mellitus with diabetic chronic kidney disease; I16.0 Hypertensive urgency; N18.9 Chronic kidney disease, unspecified; I25.10 Atherosclerotic heart disease of native coronary artery without angina pectoris; J44.9 Chronic obstructive pulmonary disease, unspecified; F32.9 Major depressive disorder, single episode, unspecified; F15.10 Other stimulant abuse, uncomplicated; I16.1 Hypertensive emergency; F41.9 Anxiety disorder, unspecified; E78.5 Hyperlipidemia, unspecified; Z80.1 Family history of malignant neoplasm of trachea, bronchus and lung; Z80.41 Family history of malignant neoplasm of ovary; Z99.81 Dependence on supplemental oxygen; I25.2 Old myocardial infarction; Z82.49 Family history of ischemic heart disease and other diseases of the circulatory system; Z82.5 Family history of asthma and other chronic lower respiratory diseases; Z80.8 Family history of malignant neoplasm of other organs or systems; Z82.0 Family history of epilepsy and other diseases of the nervous system; Z81.8 Family history of other mental and behavioral disorders; Z82.62 Family history of osteoporosis; Z83.3 Family history of diabetes mellitus; Z91.19 Patient's noncompliance with other medical treatment and regimen; Z95.810 Presence of automatic (implantable) cardiac defibrillator; Z82.3 Family history of stroke; Z80.3 Family history of malignant neoplasm of breast; Z90.49 Acquired absence of other specified parts of digestive tract; Z68.31 Body mass index [BMI] 31.0-31.9, adult
CPT/HCPCS: 36415; 71045; 80053; 80061; 80307; 81001; 82962; 83036; 83735; 83880; 84443; 84484; 84702; 85025; 85610; 85730; 87081; 92920; 93005; 93306; 93454; 96372; 96374; 96375; 99152; A6257; G0378; J1815; J2250; J3490; Q9967

== ENCOUNTER 2019-02-07 22:55 | Inpatient (IN) | payer SELFPAY ==
[~2019-02-07] VITALS: Ht 170.2 cm; Wt 113.4 kg
[~2019-02-07 22:55] MED LIST changes: -ENA2.5T PO; +ENAL2.5T2 PO; -LOSA-46 PO; +LOSA-69 PO; +POTA-220 PO; -POTA20TA53 PO
[2019-02-07] MEDS ORDERED: SODIUM CHLORIDE 0.9% 1,000 ML IV SCH (23:45)
[2019-02-07] MEDS ORDERED: InsuLIN REG 1unit/0.01ml Soln (100units/ml) IV ONE (23:45)
[2019-02-08 00:06] LABS: Basophils # (auto) 0.1 uL; Basophils % (auto) 1.4 % (0.0-2.0); Eosinophils # (auto) 0.2 uL; Eosinophils % (auto) 2.8 % (0.0-7.0); Hematocrit 49.6 % (36.0-46.0); Hemoglobin 16.5 g/dL (12.2-16.2); Lymphocytes # (auto) 2.2 uL; Lymphocytes % (auto) 28.1 % (10.0-50.0); Mean Corpuscular Hemoglobin 28.8 pg (28.0-32.0); Mean Corpuscular Hgb Conc. 33.2 g/dL (32.0-36.0); Mean Corpuscular Volume 86.9 fL (80.0-100.0); Monocytes # (auto) 0.6 uL; Neutrophils # (auto) 4.7 uL; Neutrophils % (auto) 59.7 % (37.0-80.0); Nucleated Red Blood Cells % 0.2 %; Platelet Count (auto) 227 10^3/uL (140-450); Red Blood Cells 5.71 10^6/uL (4.0-5.20); Red Cell Distribution Width 15.6 % (11.8-14.3); White Blood Cell 7.9 10^3/uL (4.4-10.8)
[2019-02-08] MEDS ORDERED: cloNIDine HCL 0.1 MG TAB PO ONE (00:15)
[2019-02-08 00:28] LABS: Calcium 8.3 mg/dL (8.5-10.1); Lactic Acid w/Reflex 2.7 mmol/L (0.4-2.0); Magnesium 2.3 mg/dL (1.6-2.6); Potassium 3.8 mmol/L (3.5-5.1)
[2019-02-08 00:33] LABS: Bilirubin, Total 0.8 mg/dL (0.2-1.0); Total Protein 7.2 g/dL (6.4-8.2)
[2019-02-08 00:40] LABS: BUN/Creatinine Ratio 9.8
[2019-02-08] MEDS ORDERED: ENOXAPARIN SOD 100 MG/1 ML SYRINGE SC ONE (00:45)
[2019-02-08] MEDS ORDERED: METOPROLOL TARTRATE 25 MG TAB PO ONE ×2 (04:30→10:00)
[2019-02-08] MEDS ORDERED: NITROGLYCERIN 2% OINT 1GM PKG TD ONE (04:30)
[2019-02-08] MEDS ORDERED: ATORVASTATIN 20 MG TAB PO ONE (04:30)
[2019-02-08] MEDS ORDERED: CLOPIDOGREL BISULFATE 75 MG TAB PO ONE ×2 (04:30→10:00)
[2019-02-08] MEDS ORDERED: FUROSEMIDE 20 MG/2 ML VIAL IV ONE (04:30)
[2019-02-08] MEDS ORDERED: SODIUM CHLORIDE 0.9% 1,000 ML IV SCH (05:30)
[2019-02-08] MEDS ORDERED: MORPHINE SULF INJ 2 MG/ML SYRINGE 1ML IV PRN (05:30)
[2019-02-08] MEDS ORDERED: TEMAZEPAM 15 MG CAP PO PRN (05:30)
[2019-02-08] MEDS ORDERED: HYDROcodone-ACET 5/325MG TAB PO PRN (05:30)
[2019-02-08] MEDS ORDERED: ACETAMINOPHEN 325 MG TAB PO PRN (05:30)
[2019-02-08] MEDS ORDERED: DEXTROSE (50%) 50ML SYRG IV PRN (05:30)
[2019-02-08] MEDS ORDERED: ONDANSETRON HCL 4 MG/2 ML VIAL IV PRN (05:30)
[2019-02-08] MEDS ORDERED: NITROGLYCERIN 0.4 MG SL TAB SL PRN (05:30)
[2019-02-08 06:00] LABS: Urine Bacteria FEW /hpf (None Seen); Urine Blood Negative /uL (Negative); Urine Specific Gravity 1.031 (1.001-1.035); Urine WBC 11 /hpf (0 - 5)
[2019-02-08] MEDS ORDERED: ACCU-CHEK COMFORT CURVE STRIP VI SCH (06:00)
[2019-02-08] MEDS ORDERED: InsuLIN REG 1unit/0.01ml Soln (100units/ml) SC SCH (06:00)
[2019-02-08] MEDS ORDERED: FUROSEMIDE 20 MG/2 ML VIAL IV SCH (06:00)
[2019-02-08 06:01] VITALS: BP 148/95
[2019-02-08 06:37] LABS: Alcohol, Urine < 3.0 mg/dL (0-5); Amphetamine Screen, Urine POSITIVE (NEGATIVE); Barbiturate Scree,Urine NEGATIVE (NEGATIVE); Benzodiazephine Screen, Urine NEGATIVE (NEGATIVE); Cannabinoid Screen, Urine NEGATIVE (NEGATIVE); Cocaine Screen, Urine NEGATIVE (NEGATIVE); Opiate Scree,Urine NEGATIVE (NEGATIVE); Phencyclidine Screen, Urine NEGATIVE (NEGATIVE)
[2019-02-08] MEDS ORDERED: ISOSORBIDE MONONITRATE IR 20 MG TAB PO SCH (10:00)
[2019-02-08] MEDS ORDERED: LOSARTAN POTASSIUM 50 MG TAB PO SCH (10:00)
[2019-02-08] MEDS ORDERED: TICAGRELOR 90 MG TAB PO SCH (10:00)
[2019-02-08] MEDS ORDERED: ASPirin 81 mg TAB PO SCH (10:00)
[2019-02-08] MEDS ORDERED: cloNIDine HCL 0.1 MG TAB PO SCH (10:00)
[2019-02-08] MEDS ORDERED: CARVEDILOL 12.5 MG TAB PO SCH (10:00)
[2019-02-08] MEDS ORDERED: ENALAPRIL MALEATE 2.5 MG TAB PO SCH (10:00)
[2019-02-08] MEDS ORDERED: ATORVASTATIN 20 MG TAB PO SCH (22:00)
== END 2019-02-08 06:25 | disposition left against medical advice (07) | DRG 917 ==
LOC: EDBD 22:55 → ER 22:57 → TELE 22:58
PROVIDERS: ADMIT Nurse Practitioner; ATTEND Internal Medicine Nephrology
DX: T43.621A Poisoning by amphetamines, accidental (unintentional), initial encounter (principal); G92 Toxic encephalopathy; I21.4 Non-ST elevation (NSTEMI) myocardial infarction; I13.0 Hypertensive heart and chronic kidney disease with heart failure and stage 1 through stage 4 chronic kidney disease, or unspecified chronic kidney disease; I42.0 Dilated cardiomyopathy; I50.20 Unspecified systolic (congestive) heart failure; L03.115 Cellulitis of right lower limb; L03.116 Cellulitis of left lower limb; E11.22 Type 2 diabetes mellitus with diabetic chronic kidney disease; E11.51 Type 2 diabetes mellitus with diabetic peripheral angiopathy without gangrene; E11.65 Type 2 diabetes mellitus with hyperglycemia; F15.10 Other stimulant abuse, uncomplicated; F17.210 Nicotine dependence, cigarettes, uncomplicated; I25.10 Atherosclerotic heart disease of native coronary artery without angina pectoris; J44.9 Chronic obstructive pulmonary disease, unspecified; J98.01 Acute bronchospasm; F41.9 Anxiety disorder, unspecified; N18.3 Chronic kidney disease, stage 3 (moderate); Z80.1 Family history of malignant neoplasm of trachea, bronchus and lung; Z80.41 Family history of malignant neoplasm of ovary; Z80.8 Family history of malignant neoplasm of other organs or systems; Z81.8 Family history of other mental and behavioral disorders; Z82.0 Family history of epilepsy and other diseases of the nervous system; Z82.3 Family history of stroke; Z82.49 Family history of ischemic heart disease and other diseases of the circulatory system; Z82.5 Family history of asthma and other chronic lower respiratory diseases; Z82.62 Family history of osteoporosis; Z83.3 Family history of diabetes mellitus; Z95.810 Presence of automatic (implantable) cardiac defibrillator; Z80.3 Family history of malignant neoplasm of breast; Z99.81 Dependence on supplemental oxygen; Z88.5 Allergy status to narcotic agent; Z79.899 Other long term (current) drug therapy; Z90.49 Acquired absence of other specified parts of digestive tract; Z81.1 Family history of alcohol abuse and dependence; Z83.511 Family history of glaucoma; Z84.89 Family history of other specified conditions; Z83.42 Family history of familial hypercholesterolemia; Y92.098 Other place in other non-institutional residence as the place of occurrence of the external cause; Z53.21 Procedure and treatment not carried out due to patient leaving prior to being seen by health care provider
CPT/HCPCS: 36415; 36600; 71045; 80053; 80307; 81001; 82010; 82140; 82805; 82962; 83605; 83735; 83880; 84484; 85025; 87040; G0378; J1815

== ENCOUNTER 2019-02-10 00:33 | Inpatient (IN) | payer SELFPAY ==
[~2019-02-10] VITALS: Ht 172.7 cm; Wt 122.7 kg
[2019-02-10] MEDS ORDERED: cloNIDine HCL 0.1 MG TAB PO ONE ×2 (02:15→03:45)
[2019-02-10 02:43] LABS: Basophils # (auto) 0.1 uL; Basophils % (auto) 1.4 % (0.0-2.0); Eosinophils # (auto) 0.2 uL; Eosinophils % (auto) 2.2 % (0.0-7.0); Hematocrit 51.1 % (36.0-46.0); Hemoglobin 17.5 g/dL (12.2-16.2); Lymphocytes # (auto) 2.1 uL; Lymphocytes % (auto) 23.1 % (10.0-50.0); Mean Corpuscular Hemoglobin 29.5 pg (28.0-32.0); Mean Corpuscular Hgb Conc. 34.2 g/dL (32.0-36.0); Mean Corpuscular Volume 86.2 fL (80.0-100.0); Monocytes # (auto) 0.6 uL; Monocytes % (auto) 6.5 % (0.0-12.0); Neutrophils # (auto) 6.1 uL; Neutrophils % (auto) 66.8 % (37.0-80.0); Nucleated Red Blood Cells % 1.2 %; Platelet Count (auto) 235 10^3/uL (140-450); Red Blood Cells 5.93 10^6/uL (4.0-5.20); Red Cell Distribution Width 15.7 % (11.8-14.3); White Blood Cell 9.2 10^3/uL (4.4-10.8)
[2019-02-10 02:57] LABS: INR 1.05 (0.9-1.15); Partial Thromboplastin Time 25.8 sec (23.64-32.05)
[2019-02-10 03:04] LABS: Albumin 3.3 g/dL (3.4-5.0); BUN/Creatinine Ratio 8.7; Calcium 8.4 mg/dL (8.5-10.1); Potassium 3.5 mmol/L (3.5-5.1)
[2019-02-10 03:09] LABS: Bilirubin, Total 1.2 mg/dL (0.2-1.0); Total Protein 7.7 g/dL (6.4-8.2)
[2019-02-10] MEDS ORDERED: InsuLIN REG 1unit/0.01ml Soln (100units/ml) IV ONE (03:15)
[2019-02-10] MEDS ORDERED: ENOXAPARIN SOD 100 MG/1 ML SYRINGE SC ONE (03:15)
[2019-02-10] MEDS ORDERED: SODIUM CHLORIDE 0.9% 1,000 ML IV ONE (03:15)
[2019-02-10] MEDS ORDERED: DEXTROSE (50%) 50ML SYRG IV PRN (04:15)
[2019-02-10] MEDS ORDERED: ACETAMINOPHEN 325 MG TAB PO PRN (04:15)
[2019-02-10] MEDS ORDERED: NITROGLYCERIN 0.4 MG SL TAB SL PRN (04:15)
[2019-02-10] MEDS ORDERED: TEMAZEPAM 15 MG CAP PO PRN (04:15)
[2019-02-10] MEDS ORDERED: cloNIDine HCL 0.1 MG TAB PO PRN (04:15)
[2019-02-10] MEDS ORDERED: HYDROcodone-ACET 5/325MG TAB PO PRN (04:15)
[2019-02-10] MEDS ORDERED: ONDANSETRON HCL 4 MG/2 ML VIAL IV PRN (04:15)
[2019-02-10] MEDS ORDERED: ATORVASTATIN 20 MG TAB PO ONE (04:15)
[2019-02-10] MEDS ORDERED: MORPHINE SULF INJ 2 MG/ML SYRINGE 1ML IV PRN (04:15)
[2019-02-10] MEDS ORDERED: FUROSEMIDE 20 MG/2 ML VIAL IV ONE (04:15)
[2019-02-10] MEDS: CLINDAMYCIN 600MG IV 50 ML IV SCH ×3 (05:06→20:19)
[2019-02-10 05:30] LABS: CRP High Sensitivity 0.91 mg/dL (< 0.3)
[2019-02-10 05:33] LABS: Urine Bacteria FEW /hpf (None Seen); Urine Blood Negative /uL (Negative); Urine Specific Gravity 1.035 (1.001-1.035); Urine WBC 1 /hpf (0 - 5)
[2019-02-10 05:42] LABS: Alcohol, Urine < 3.0 mg/dL (0-5); Amphetamine Screen, Urine POSITIVE (NEGATIVE); Barbiturate Scree,Urine NEGATIVE (NEGATIVE); Benzodiazephine Screen, Urine NEGATIVE (NEGATIVE); Cannabinoid Screen, Urine NEGATIVE (NEGATIVE); Cocaine Screen, Urine NEGATIVE (NEGATIVE); Opiate Scree,Urine NEGATIVE (NEGATIVE); Phencyclidine Screen, Urine NEGATIVE (NEGATIVE)
[2019-02-10] MEDS: ACCU-CHEK COMFORT CURVE STRIP VI SCH ×4 (06:20→23:59)
[2019-02-10] MEDS: InsuLIN REG 1unit/0.01ml Soln (100units/ml) SC SCH ×3 (06:21→18:00)
[2019-02-10] MEDS: PANTOPRAZOLE 40 MG TAB PO SCH (07:28)
[2019-02-10] MEDS: CARVEDILOL 12.5 MG TAB PO SCH ×2 (08:00→17:53)
[2019-02-10] MEDS ORDERED: FUROSEMIDE 40 MG TAB PO SCH (10:00)
[2019-02-10] MEDS: LOSARTAN POTASSIUM 50 MG TAB PO SCH (10:00)
[2019-02-10] MEDS ORDERED: ASPirin 81 mg TAB PO SCH (10:00)
[2019-02-10] MEDS: ISOSORBIDE MONONITRATE IR 20 MG TAB PO SCH ×2 (10:23→22:00)
[2019-02-10] MEDS: ENALAPRIL MALEATE 2.5 MG TAB PO SCH ×2 (10:23→22:00)
[2019-02-10] MEDS: TICAGRELOR 90 MG TAB PO SCH ×2 (13:00→22:26)
--- NOTE | 2019-02-10 14:15 | NUR ---
Telemetry admit from ER [facility] admitted to Telemetry unit after SBAR received. Patient oriented to Francheska herrera RN, unit, room, bed, and unit policies regarding patient care and visiting hours. Patient now on continuous telemetry monitoring, tele box # 68 and telemetry reading on arrival to unit is SR 76. Patient placed on bedside oxygen on O2 2L via NC, weighed by bedscale and encouraged to call if they need something. call light within reach, bed alarm activated. All questions and concerns addressed, patient verbalized understanding. VS 103/69, p 74, o2 91% in 2l via NC, RR 16, temp 97.9.
--- NOTE | 2019-02-10 14:40 | NUR ---
SKIN NOTED BLANCHABLE REDNESS TO SACRUM, PT INSTRUCTED TO TURN Q2 HR AND PRN TO AVOID SKIN BREAKDOWN, PT VERBALIZED UNDERSTANDING AND ABLE TO DEMONSTRATE HOW TO TURN SELF, CONT CARE
--- NOTE | 2019-02-10 14:43 | NUR ---
CARDIOLOGY PARAG (CAR SALESPERSON) WAS MADE AWARE OF CARDIOLOGY CONSULT, AWARE OF TROP 4.640, SECOND 3.920, SHE STATES SHE WILL SEE PT, CONT CARE
[2019-02-10 15:00] VITALS: BP 108/60
[2019-02-10] MEDS ORDERED: LACTULOSE 20Gm/30ML SOLN PO ONE (16:15)
--- NOTE | 2019-02-10 18:32 | NUR ---
CARDIOLOGY DR ORTEGA WAS MADE AWARE OF TROPONIN 3.850, PREVIOUS 3.920, STATES PT IS ON THE SCHEDULE FOR [facility] ON WEDNESDAY, NO NEW ORDERS RECEIVED, [facility] CARE
--- NOTE | 2019-02-10 19:30 | NUR ---
Opening Shift Note Assumed care of patient, awake and alert. No S/S of distress/SOB. Instructed on POC and to call for assist PRN, will continue to monitor for changes Q1hr and PRN.
[2019-02-10 21:00] VITALS: BP 115/56
[2019-02-10] MEDS ORDERED: ENOXAPARIN SOD 150 MG/1 ML SYRINGE SC SCH (22:00)
[2019-02-10] MEDS: ATORVASTATIN 20 MG TAB PO SCH (22:27)
[2019-02-10] MEDS: INSULIN LANTUS (GLARGINE) 1 /0.01ml (100units/ml) SC SCH (22:29)
--- NOTE | 2019-02-10 23:50 | NUR ---
Patient endorsed to Tiffani LAZARO, report given, patient resting and in no distress.
[2019-02-11] MEDS: InsuLIN REG 1unit/0.01ml Soln (100units/ml) SC SCH ×4 (00:07→17:18)
--- NOTE | 2019-02-11 02:34 | NUR ---
RECEIVED CALL FROM LAB RE: CRITICAL TROPONIN Received call from laboratory informing this RN who is covering for primary RN Tiffani of critical troponin value: 3.520. Will inform primary RN and hospitalist.
--- NOTE | 2019-02-11 02:35 | NUR ---
PAGED HOSPITALIST RE: CRITICAL TROPONIN LAB VALUE This RN is covering for primary RN Tiffani for lunch. Received critical troponin lab value of 3.520. Primary RN Tiffani aware. Hospitalist paged. Awaiting call back.
[2019-02-11] MEDS: CLINDAMYCIN 600MG IV 50 ML IV SCH ×3 (04:14→20:24)
[2019-02-11 04:30] VITALS: BP 108/60
[2019-02-11] MEDS: ACCU-CHEK COMFORT CURVE STRIP VI SCH ×3 (06:14→18:00)
[2019-02-11] MEDS: PANTOPRAZOLE 40 MG TAB PO SCH (06:23)
[2019-02-11 07:20] LABS: Calcium 8.1 mg/dL (8.5-10.1); Potassium 3.5 mmol/L (3.5-5.1)
--- NOTE | 2019-02-11 07:20 | NUR ---
Opening Shift Note Assumed care of patient, awake and alert. No S/S or pain. Instructed on POC and to call for assist PRN, will continue to monitor for changes Q1hr and PRN. Bed locked in lowest position with two side rails up and call light in reach. Patient C/O difficulty breathing patient RR 20 O2 sat 96% on 2 L NC. Patient has unlabored breathing at this time. Educated patient on breathing. Patient verbalized understanding states this happens often at home. Will continue to monitor.
[2019-02-11 07:22] LABS: BUN/Creatinine Ratio 15.4
[2019-02-11 07:28] LABS: Basophils # (auto) 0.1 uL; Basophils % (auto) 1.1 % (0.0-2.0); Eosinophils # (auto) 0.3 uL; Eosinophils % (auto) 3.4 % (0.0-7.0); Hematocrit 47.6 % (36.0-46.0); Hemoglobin 15.6 g/dL (12.2-16.2); Lymphocytes # (auto) 1.6 uL; Lymphocytes % (auto) 21.5 % (10.0-50.0); Mean Corpuscular Hemoglobin 28.7 pg (28.0-32.0); Mean Corpuscular Hgb Conc. 32.8 g/dL (32.0-36.0); Mean Corpuscular Volume 87.5 fL (80.0-100.0); Monocytes # (auto) 0.5 uL; Monocytes % (auto) 6.8 % (0.0-12.0); Neutrophils % (auto) 67.2 % (37.0-80.0); Nucleated Red Blood Cells % 0.1 %; Platelet Count (auto) 156 10^3/uL (140-450); Red Blood Cells 5.44 10^6/uL (4.0-5.20); Red Cell Distribution Width 15.2 % (11.8-14.3); White Blood Cell 7.5 10^3/uL (4.4-10.8)
--- NOTE | 2019-02-11 08:30 | NUR ---
ASSESSMENT DOCUMENTED BY PRECEPTEE SAVANNAH LAZARO
--- NOTE | 2019-02-11 08:40 | NUR ---
DR HOWE ROUNDING NEW ORDERS RECEIVED, WILL CARRY OUT.
[2019-02-11 09:00] VITALS: BP 112/82
--- NOTE | 2019-02-11 09:00 | NUR ---
RECEIVED CALL FROM PHARMACY REGARDING BRILINTA AND ASA 81 MG. PER PHARMACY ASA WILL DECREASE EFFECTIVENESS OF BRILINTA. WILL LET DR HOWE KNOW.
--- NOTE | 2019-02-11 09:27 | NUR ---
PAGED DR HOWE PATIENT REQUESTING ANXIETY MEDICATION AND PAIN MEDICATION. WILL ALSO LET DR HOWE KNOW ABOUT ASA
[2019-02-11] MEDS ORDERED: LORazepam 0.5 MG TAB PO PRN ×2 (09:30→12:30)
[2019-02-11] MEDS ORDERED: MORPHINE SULF INJ 2 MG/ML SYRINGE 1ML IV PRN (09:30)
--- NOTE | 2019-02-11 09:30 | NUR ---
Received call back from Dr. Collazo new orders received, see EMR for orders. Will carry out.
[2019-02-11] MEDS: LACTULOSE 20Gm/30ML SOLN PO SCH (09:52)
[2019-02-11] MEDS: FUROSEMIDE 40 MG/4 ML VIAL IV SCH (09:53)
[2019-02-11] MEDS: ASPirin 81 mg TAB PO SCH ×2 (09:55→11:04)
[2019-02-11] MEDS: LOSARTAN POTASSIUM 50 MG TAB PO SCH ×2 (09:56→22:47)
[2019-02-11] MEDS: POTASSIUM CHL 20 Meq TABLET PO SCH ×2 (09:59→22:47)
[2019-02-11] MEDS: TICAGRELOR 90 MG TAB PO SCH (09:59)
[2019-02-11] MEDS ORDERED: ENALAPRIL MALEATE 2.5 MG TAB PO SCH (10:00)
[2019-02-11] MEDS: INSULIN LANTUS (GLARGINE) 1 /0.01ml (100units/ml) SC SCH ×2 (10:01→22:00)
--- NOTE | 2019-02-11 10:19 | NUR ---
ORDERS RECEIVED FROM DR HOWE TO REINSTATE LOVENOX 1MG/KG. WILL IMPLEMENT ORDERS.
[2019-02-11] MEDS: ENOXAPARIN SOD 150 MG/1 ML SYRINGE SC SCH ×2 (11:04→22:47)
[2019-02-11] MEDS: SODIUM CHLORIDE 0.9% 1,000 ML IV SCH (12:00)
--- NOTE | 2019-02-11 12:23 | NUR ---
NOTIFIED DOCTOR HOWE OF PATIENTS RESPONSE TO ATIVAN, PATIENT EXTREMELY SLEEP, DIFFICULT TO AROUSE BUT STILL ABLE TO AROUSE BY NAME CALL AND TOUCH. NEW ORDERS RECEIVED, SEE EMR FOR ORDERS. WILL CONTINUE TO MONITOR.
--- NOTE | 2019-02-11 12:26 | NUR ---
ATIVAN 1 MG PO ATIVAN 1 MG PO GIVEN ORDERED, PATIENT EXTREMELY SLEEPY AND HARD TO AROUSE, BUT IS ABLE TO WAKE UPON LOUDER NAME CALL, AND TOUCH. NOTIFIED DR HOWE AND NEW ORDERS RECEIVED FOR A SMALLER DOSE OF 0.5 MG Q 8.
[2019-02-11] MEDS: ALBUTEROL SULF 2.5 MG/0.5ML(0.5%) NEB SOLN NEB SCH ×2 (13:41→18:34)
[2019-02-11] MEDS: IPRATROPIUM BROM 0.5 MG/2.5ML INH SOL NEB SCH ×2 (13:41→18:34)
--- NOTE | 2019-02-11 13:41 | NUR ---
Respiratory note: SCHEDULED MEB NEB TX NOT GIVEN. PT WAS AWAKE AND ALERT NO RESP DISTRESS NOTED. PT STATED SHE DID NOT WANT TX AT THIS TIME. HR 74, RR 16, SPO2 94% ON 2L N/C. BS ARE CLEAR AND DIMINISHED.
[2019-02-11 15:14] VITALS: BP 112/82
--- NOTE | 2019-02-11 16:37 | NUR ---
AMA PATIENT SIGNED AMA FORM AND PLACED IN CHART. PATIENT EDUCATED ON THE RISKS. PATIENT AWARE THAT SHE CANNOT GO OUTSIDE WITH OXYGEN TANK PER CHARGE NURSE RAJWINDER LAZARO. PATIENT VERBALIZED UNDERSTANDING AND WOULD STILL LIKE TO GO OUTSIDE.
[2019-02-11 16:57] VITALS: BP 143/97
[2019-02-11] MEDS: CARVEDILOL 12.5 MG TAB PO SCH (17:19)
[2019-02-11] MEDS ORDERED: FUROSEMIDE 40 MG/4 ML VIAL IV ONE (18:00)
--- NOTE | 2019-02-11 19:40 | NUR ---
Opening Shift Note Assumed care of patient, awake and alert. No S/S of distress/SOB or pain. Instructed on POC and to call for assist PRN, will continue to monitor for changes Q1hr and PRN. Bed in low position and call light within reach.
[2019-02-11 22:00] VITALS: BP 163/77
[2019-02-11] MEDS: ATORVASTATIN 20 MG TAB PO SCH (22:46)
[2019-02-11] MEDS: HYDROmorphone HCL 2 MG/ML VL IV PRN (22:48)
[2019-02-12] MEDS: ALBUTEROL SULF 2.5 MG/0.5ML(0.5%) NEB SOLN NEB SCH ×4 (00:23→20:04)
[2019-02-12] MEDS: InsuLIN REG 1unit/0.01ml Soln (100units/ml) SC SCH ×4 (00:23→17:55)
[2019-02-12] MEDS: IPRATROPIUM BROM 0.5 MG/2.5ML INH SOL NEB SCH ×4 (00:23→20:04)
[2019-02-12] MEDS: ACCU-CHEK COMFORT CURVE STRIP VI SCH ×4 (00:23→18:11)
[2019-02-12] MEDS: CLINDAMYCIN 600MG IV 50 ML IV SCH ×3 (04:02→20:15)
[2019-02-12] MEDS: HYDROmorphone HCL 2 MG/ML VL IV PRN ×4 (05:04→21:56)
[2019-02-12 05:29] VITALS: BP 139/91
[2019-02-12] MEDS: PANTOPRAZOLE 40 MG TAB PO SCH (06:05)
[2019-02-12] MEDS: LEVOTHYROXINE SODIUM 50 MCG TAB PO SCH (06:06)
--- NOTE | 2019-02-12 07:15 | NUR ---
Opening Shift Note Assumed care of patient, awake and alert. No S/S of distress or pain. Instructed on POC and to call for assist PRN, will continue to monitor for changes Q1hr and PRN. Bed locked in lowest position with two side rails up and call light in reach.
--- NOTE | 2019-02-12 07:19 | NUR ---
REPORT GIVEN TO ANDREAS LAZARO
[2019-02-12 07:36] LABS: Potassium 3.8 mmol/L (3.5-5.1)
[2019-02-12 07:45] LABS: BUN/Creatinine Ratio 14.4
--- NOTE | 2019-02-12 08:34 | NUR ---
Received call from lab, type and screen was drawn last night, but was scheduled for tonight. Lab stated type and screen is good for 72 hours. Will inform .
[2019-02-12 09:00] VITALS: BP 96/53
[2019-02-12] MEDS: CARVEDILOL 12.5 MG TAB PO SCH ×2 (09:33→18:14)
[2019-02-12] MEDS: LACTULOSE 20Gm/30ML SOLN PO SCH (10:00)
--- NOTE | 2019-02-12 10:28 | NUR ---
DR HOWE ROUNDING
--- NOTE | 2019-02-12 10:30 | NUR ---
New medications receive per Doctor Collazo okay to spread out blood pressure medication.
[2019-02-12] MEDS: POTASSIUM CHL 20 Meq TABLET PO SCH ×2 (10:31→21:57)
[2019-02-12] MEDS: FUROSEMIDE 40 MG/4 ML VIAL IV SCH (10:31)
[2019-02-12] MEDS: ASPirin 81 mg TAB PO SCH (10:31)
[2019-02-12] MEDS: ENOXAPARIN SOD 150 MG/1 ML SYRINGE SC SCH ×2 (10:31→22:00)
[2019-02-12] MEDS: INSULIN LANTUS (GLARGINE) 1 /0.01ml (100units/ml) SC SCH ×3 (10:32→22:16)
[2019-02-12] MEDS: METOLAZONE 5 MG TAB PO SCH (11:48)
--- NOTE | 2019-02-12 11:50 | NUR ---
WOUND CARE NOTE: Wound care consult received from nursing. Patient is a 48 yo female admitted for CP r/o NSTEMI and elevated troponin. Patient with a history of CHF, COPD, diabetes, hypertension, NC and CAD. Patient seen with bedside RNs, Tiffany and Idalia. Patient is alert, but drowsy. Last Fermin score is 18.Patient is complaining of pain and bedside nursing to medicate as ordered. Patient with multiple scabs/scratches to bilateral lower extremities. Nursing is concerned with a wound to left anterior leg that measures 1.5x1.5cm. Patient states that wound initially was a blister that ruptured. Wound bed with yellow slough, cleansed with NS and applied THERAHONEY. All other scabs intact. RECOMMENDATIONS: Nursing to cleanse left leg wound with NS, pat dry, apply THERAHONEY GEL, cover with OPTIFOAM GENTLE, change every three days and PRN soiling; no further need by wound care team. Addendum: 02/12/19 at 1519 by SIDRA BROWN RN Amended: Links added.
[2019-02-12 13:00] VITALS: BP 179/86
[2019-02-12] MEDS: LOSARTAN POTASSIUM 50 MG TAB PO SCH ×2 (16:49→21:57)
[2019-02-12 18:08] VITALS: BP 140/80
--- NOTE | 2019-02-12 19:13 | NUR ---
Report given to RICH LAZARO.
--- NOTE | 2019-02-12 19:50 | NUR ---
Opening Shift Note Assumed care of patient, awake and alert. No S/S of distress/SOB or pain. Instructed on POC and to call for assist PRN, will continue to monitor for changes Q1hr and PRN.
--- NOTE | 2019-02-12 19:57 | NUR ---
PATIENT OFF UNIT PATIENT REQUESTED TO GO OUT AND SMOKE. PATIENT SIGNED FORM AND PLACED IN CHART. PATIENT EDUCATED ON THE RISKS. PATIENT AWARE THAT SHE CANNOT GO OUTSIDE WITH OXYGEN TANK.PATIENT VERBALIZED UNDERSTANDING AND WOULD STILL LIKE TO GO OUTSIDE.
--- NOTE | 2019-02-12 20:04 | NUR ---
RT NOTE: PT NOT IN ROOM @ THIS TIME. JEANNINE STATED PT WENT DOWNSTAIRS TO SMOKE. WILL RESUME MED NEB TX @ 0000.
--- NOTE | 2019-02-12 20:30 | NUR ---
Patient returned to unit Patient returned to unit. Bed in low position and call light within reach.
[2019-02-12] MEDS: ATORVASTATIN 20 MG TAB PO SCH (21:57)
[2019-02-12 22:00] VITALS: BP 139/71
--- NOTE | 2019-02-13 00:30 | NUR ---
UA OBTAINED SENT DOWN TO LAB
[2019-02-13 01:09] LABS: Urine Bacteria FEW /hpf (None Seen); Urine Blood 2+ /uL (Negative); Urine Specific Gravity 1.016 (1.001-1.035); Urine WBC 16 /hpf (0 - 5)
[2019-02-13] MEDS: IPRATROPIUM BROM 0.5 MG/2.5ML INH SOL NEB SCH ×4 (01:33→19:34)
[2019-02-13] MEDS: ALBUTEROL SULF 2.5 MG/0.5ML(0.5%) NEB SOLN NEB SCH ×4 (01:33→19:34)
--- NOTE | 2019-02-13 01:36 | NUR ---
PT SEEN FOR SCHEDULED MED NEB TX. PT REFUSED TX @ THIS TIME. SPO2 94% ON 3L NC, HR 79, RR 22, CLEAR/DIMINISHED BS NOTED. NO SOB OR DISTRESS NOTED @ THIS TIME.
[2019-02-13] MEDS: HYDROmorphone HCL 2 MG/ML VL IV PRN ×3 (04:10→20:03)
[2019-02-13] MEDS: CLINDAMYCIN 600MG IV 50 ML IV SCH ×3 (04:11→20:02)
[2019-02-13 04:54] VITALS: BP 156/77
[2019-02-13] MEDS: InsuLIN REG 1unit/0.01ml Soln (100units/ml) SC SCH ×4 (05:47→17:55)
[2019-02-13] MEDS: PANTOPRAZOLE 40 MG TAB PO SCH (05:48)
[2019-02-13] MEDS: INSULIN LANTUS (GLARGINE) 1 /0.01ml (100units/ml) SC SCH ×3 (05:48→22:00)
[2019-02-13] MEDS: ACCU-CHEK COMFORT CURVE STRIP VI SCH ×4 (05:48→17:55)
[2019-02-13] MEDS: LEVOTHYROXINE SODIUM 50 MCG TAB PO SCH (06:04)
[2019-02-13 06:26] LABS: Basophils # (auto) 0.1 uL; Basophils % (auto) 1.3 % (0.0-2.0); Eosinophils # (auto) 0.4 uL; Eosinophils % (auto) 5.2 % (0.0-7.0); Hematocrit 45.6 % (36.0-46.0); Hemoglobin 15.3 g/dL (12.2-16.2); Lymphocytes # (auto) 1.4 uL; Lymphocytes % (auto) 19.6 % (10.0-50.0); Mean Corpuscular Hemoglobin 28.9 pg (28.0-32.0); Mean Corpuscular Hgb Conc. 33.5 g/dL (32.0-36.0); Mean Corpuscular Volume 86.3 fL (80.0-100.0); Monocytes # (auto) 0.5 uL; Monocytes % (auto) 7.9 % (0.0-12.0); Neutrophils # (auto) 4.6 uL; Nucleated Red Blood Cells % 0.2 %; Platelet Count (auto) 206 10^3/uL (140-450); Red Blood Cells 5.28 10^6/uL (4.0-5.20); Red Cell Distribution Width 15.3 % (11.8-14.3); White Blood Cell 6.9 10^3/uL (4.4-10.8)
[2019-02-13 07:11] LABS: BUN/Creatinine Ratio 13.6; Calcium 7.9 mg/dL (8.5-10.1); Potassium 3.8 mmol/L (3.5-5.1)
--- NOTE | 2019-02-13 07:15 | NUR ---
Opening Note Received report from material handler 2nd shift RN. Patient is resting with eyes closed, easy to wake by calling name. Patient denies pain at this time. Patient is on 3L NC, denies shortness of breath. Patient in NPO for scheduled heart cath today. Reviewed plan of care with patient, patient verbalized understanding. Bed in low and locked position, call light within reach. Will continue to monitor Q1 hour and PRN.
--- NOTE | 2019-02-13 07:22 | NUR ---
REPORT GIVEN TO DAY SHIFT RN
[2019-02-13] MEDS: CARVEDILOL 12.5 MG TAB PO SCH ×2 (08:34→18:03)
[2019-02-13 09:28] VITALS: BP 161/70
--- NOTE | 2019-02-13 09:32 | NUR ---
Patient taken down to geotechnical laboratory technician
[2019-02-13] MEDS ORDERED: LIDOCAINE 2%HCL (LOCAL ANESTH.) INJ 20ML MDV ONE (09:38)
[2019-02-13] MEDS ORDERED: IOHEXOL 350 MG/ML 100ML IJ ONE ×3 (09:38→10:41)
[2019-02-13] MEDS ORDERED: SODIUM CHL 0.9% 50 ML ONE ×2 (09:53→10:36)
[2019-02-13] MEDS ORDERED: MIDAZOLAM HCL 1MG/1ML-2 ML VIAL ONE (09:53)
[2019-02-13] MEDS ORDERED: fentaNYL CITRATE 100 MCG/2 ML VL ONE (09:53)
[2019-02-13] MEDS ORDERED: ANGIOMAX 250 MG VIAL IV ONE ×2 (09:53→10:36)
[2019-02-13] MEDS: ASPirin 81 mg TAB PO SCH (10:00)
[2019-02-13] MEDS: LACTULOSE 20Gm/30ML SOLN PO SCH (10:00)
[2019-02-13] MEDS ORDERED: TICAGRELOR 90 MG TAB ONE (10:51)
--- NOTE | 2019-02-13 11:33 | NUR ---
Received report from laborer wharf Patient to be brought back to room
--- NOTE | 2019-02-13 11:50 | NUR ---
Patient back to room Patient is easy to wake by calling name. Vitals signs assessed. Patient is on simple mask 6L, oxygen saturation 97%, Blood pressure 140/90, heart rate 78, respirations 16. Bed alarm on for safety. Patient instructed to call for assistance. Patient is to lay flat until 1300. Bed in low and locked position, call light within reach. Will continue to monitor Q1 hour and PRN.
--- NOTE | 2019-02-13 12:14 | NUR ---
NUTRITION ASSESSMENT NOTES Please refer to link notes of nutrition screen form filed under the intervention section of the plan of care for further details. Est. Needs: 1950 kcal to 2350 kcal (15-18 kcal/kgBW), 64 gms to 77 gms pro (1.0-1.2 gms/kgIBW: 64 kg). Will continue to monitor pertinent labs and reassess nutrient need prn Thank you. Addendum: 02/13/19 at [address] Amended: Links added.
[2019-02-13] MEDS: SODIUM CHLORIDE 0.9% 1,000 ML IV SCH ×3 (13:00→18:22)
[2019-02-13 13:14] VITALS: BP 140/90
[2019-02-13] MEDS: METOLAZONE 5 MG TAB PO SCH (13:28)
[2019-02-13] MEDS: LOSARTAN POTASSIUM 50 MG TAB PO SCH ×2 (13:28→21:27)
[2019-02-13] MEDS: POTASSIUM CHL 20 Meq TABLET PO SCH ×2 (13:28→21:26)
[2019-02-13] MEDS: FUROSEMIDE 40 MG/4 ML VIAL IV SCH (13:29)
[2019-02-13] MEDS ORDERED: ATOR20TA50 PO (14:02)
--- NOTE | 2019-02-13 15:10 | NUR ---
Patient outside to smoke Patient ambulated, unassisted off the unit. Addendum: 02/13/19 at 1724 by BIPIN CURTIS RN RN Incorrect Note: Patient taken down via wheelchair, accompanied by family member to smoke. Patient did not ambulate.
[2019-02-13] MEDS: LORazepam 0.5 MG TAB PO PRN (15:24)
--- NOTE | 2019-02-13 15:45 | NUR ---
Patient back to room, Patient stated IV stated to bleed while out to smoke. IV removed from right wrist, catheter intact. Pressure dressing applied.
--- NOTE | 2019-02-13 15:50 | NUR ---
IV Insertion IV access obtained, via clean sterile technique by inserting 22 gauge catheter to the right forearm. IV secured properly. No trauma to site. Patient tolerated well. Will continue to monitor Q1 hour and PRN.
[2019-02-13 17:00] VITALS: BP 157/86
[2019-02-13] MEDS: glyBURIDE 5 MG TAB PO SCH (18:04)
--- NOTE | 2019-02-13 19:22 | NUR ---
Closing Note Report given to shift boss RN. Patient is currently not in the room, patient is outside smoking.
--- NOTE | 2019-02-13 19:30 | NUR ---
Patient out of the room, noted AMA to smoke on chart. Will check on patient later
--- NOTE | 2019-02-13 20:00 | NUR ---
Opening Shift Note Assumed care of patient, awake and alert. No S/S of distress/SOB. Dressing to left meneses dry and intact. Instructed on POC and to call for assist PRN, patient verbalized understanding, call light within reach, will continue to monitor for changes Q1hr and PRN.
[2019-02-13] MEDS: TICAGRELOR 90 MG TAB PO SCH (21:26)
[2019-02-13] MEDS: ATORVASTATIN 20 MG TAB PO SCH (21:27)
[2019-02-13 21:54] VITALS: BP 163/93
[2019-02-13 23:00] VITALS: BP 153/76
[2019-02-14] MEDS: InsuLIN REG 1unit/0.01ml Soln (100units/ml) SC SCH ×4 (00:26→17:45)
[2019-02-14] MEDS: ACCU-CHEK COMFORT CURVE STRIP VI SCH ×4 (00:26→17:43)
[2019-02-14] MEDS: IPRATROPIUM BROM 0.5 MG/2.5ML INH SOL NEB SCH ×4 (00:59→18:37)
[2019-02-14] MEDS: ALBUTEROL SULF 2.5 MG/0.5ML(0.5%) NEB SOLN NEB SCH ×4 (00:59→18:37)
[2019-02-14] MEDS: SODIUM CHLORIDE 0.9% 1,000 ML IV SCH (02:47)
[2019-02-14] MEDS: HYDROmorphone HCL 2 MG/ML VL IV PRN (03:17)
[2019-02-14] MEDS: CLINDAMYCIN 600MG IV 50 ML IV SCH ×3 (03:56→20:08)
[2019-02-14 04:08] LABS: Basophils # (auto) 0.1 uL; Basophils % (auto) 1.2 % (0.0-2.0); Eosinophils # (auto) 0.4 uL; Eosinophils % (auto) 4.6 % (0.0-7.0); Hematocrit 47.2 % (36.0-46.0); Hemoglobin 15.5 g/dL (12.2-16.2); Lymphocytes # (auto) 1.5 uL; Lymphocytes % (auto) 19.4 % (10.0-50.0); Mean Corpuscular Hemoglobin 28.3 pg (28.0-32.0); Mean Corpuscular Hgb Conc. 32.8 g/dL (32.0-36.0); Mean Corpuscular Volume 86.2 fL (80.0-100.0); Monocytes # (auto) 0.7 uL; Monocytes % (auto) 8.6 % (0.0-12.0); Neutrophils # (auto) 5.2 uL; Neutrophils % (auto) 66.2 % (37.0-80.0); Nucleated Red Blood Cells % 0.1 %; Platelet Count (auto) 222 10^3/uL (140-450); Red Blood Cells 5.48 10^6/uL (4.0-5.20); Red Cell Distribution Width 15.8 % (11.8-14.3); White Blood Cell 7.8 10^3/uL (4.4-10.8)
[2019-02-14 04:25] LABS: BUN/Creatinine Ratio 15.1; Calcium 8.4 mg/dL (8.5-10.1); Potassium 3.9 mmol/L (3.5-5.1)
[2019-02-14 04:45] VITALS: BP 156/73
[2019-02-14] MEDS: INSULIN LANTUS (GLARGINE) 1 /0.01ml (100units/ml) SC SCH ×3 (06:05→22:12)
[2019-02-14] MEDS: glyBURIDE 5 MG TAB PO SCH ×2 (06:05→17:29)
[2019-02-14] MEDS: PANTOPRAZOLE 40 MG TAB PO SCH (06:05)
[2019-02-14] MEDS: LEVOTHYROXINE SODIUM 50 MCG TAB PO SCH (06:05)
[2019-02-14 09:00] VITALS: BP 165/87
[2019-02-14] MEDS: POTASSIUM CHL 20 Meq TABLET PO SCH ×2 (09:19→22:12)
[2019-02-14] MEDS: LOSARTAN POTASSIUM 50 MG TAB PO SCH ×2 (09:20→22:12)
[2019-02-14] MEDS: ASPirin 81 mg TAB PO SCH (09:21)
[2019-02-14] MEDS: CARVEDILOL 12.5 MG TAB PO SCH ×2 (09:21→17:26)
[2019-02-14] MEDS: TICAGRELOR 90 MG TAB PO SCH ×2 (09:21→22:11)
[2019-02-14] MEDS: METOLAZONE 5 MG TAB PO SCH (09:22)
[2019-02-14] MEDS: FUROSEMIDE 40 MG/4 ML VIAL IV SCH ×2 (09:24→17:26)
[2019-02-14] MEDS: LACTULOSE 20Gm/30ML SOLN PO SCH (09:24)
--- NOTE | 2019-02-14 09:25 | NUR ---
Dr. Collazo at bedside Updating patient on plan of care
[2019-02-14 10:56] VITALS: BP 165/87
[2019-02-14 13:00] VITALS: BP 126/69
--- NOTE | 2019-02-14 13:10 | NUR ---
Patient off unit Patient down stairs to smoke. Full linen change completed.
--- NOTE | 2019-02-14 13:40 | NUR ---
Patient back to room
[2019-02-14] MEDS: OXYCODONE HCL 5MG TAB PO PRN ×2 (13:50→20:43)
--- NOTE | 2019-02-14 16:04 | NUR ---
assessment re: ss consult no insurance Patient is a 48 year old female who is alert and oriented. Patients cognitive abilities are intact. Prior to admission patient lived home with friends and functioned independently. Patient informed me she is able to care for her own ADLs. Per patient she will return home to her prior living arrangements post discharge and she will have transport home. Patient has no insurance. Patient has been assessed by Yuval Reich of [facility]. Patients application is secure. I have provided patient with resources for [facility], Dr. Lorenzana, and [facility] urgent care for follow up visits. I have provided patient with a prescription card from community assistance program.I informed patient she has a right to speak to a social work job titles regarding all care. I informed patient she has a right to participate in any and all discharge planning. Patient is aware of visiting hours on the hospital floor. I informed patient she has a right to privacy. Patient does not have a POA and advanced directive. I have offered patient information on POA and advanced directives. I informed the patient the advantages and benefits of having an Advanced Directive. Patient verbalized understanding and agreed to discharge plan. Addendum: 02/14/19 at 1606 by Alexandria RODRIGUEZ Amended: Links added.
--- NOTE | 2019-02-14 16:43 | NUR ---
IV Insertion IV access obtained, via clean sterile technique by inserting 22 gauge catheter to the left shoulder. IV secured properly. No trauma to site. Patient tolerated well. Will continue to monitor Q1 hour and PRN.
[2019-02-14 17:00] VITALS: BP 144/63
--- NOTE | 2019-02-14 17:11 | NUR ---
Patient off unit to smoke
--- NOTE | 2019-02-14 17:34 | NUR ---
Patient back to room
--- NOTE | 2019-02-14 18:53 | NUR ---
IV Removed IV removed from right forearm with sterile technique, catheter intact. Pressure dressing applied to site. Patient tolerated procedure well. Will continue to monitor Q1 hour and PRN.
--- NOTE | 2019-02-14 19:24 | NUR ---
Closing Note Report given to armoured corps officer RN. No signs or symptoms of distress noted at this time.
--- NOTE | 2019-02-14 19:40 | NUR ---
Opening Shift Note Assumed care of patient, awake and alert. No S/S of distress/SOB. Optifoam to both legs dry and intact. Instructed on POC and to call for assist PRN, patient verbalized understanding, call light within reach, will continue to monitor for changes Q1hr and PRN.
[2019-02-14 22:00] VITALS: BP 122/63
[2019-02-14] MEDS: ATORVASTATIN 20 MG TAB PO SCH (22:12)
[2019-02-15] MEDS: ALBUTEROL SULF 2.5 MG/0.5ML(0.5%) NEB SOLN NEB SCH ×4 (00:16→19:37)
[2019-02-15] MEDS: IPRATROPIUM BROM 0.5 MG/2.5ML INH SOL NEB SCH ×4 (00:16→19:37)
[2019-02-15] MEDS: ACCU-CHEK COMFORT CURVE STRIP VI SCH ×5 (00:17→23:33)
[2019-02-15] MEDS: InsuLIN REG 1unit/0.01ml Soln (100units/ml) SC SCH ×5 (00:17→23:37)
[2019-02-15] MEDS: OXYCODONE HCL 5MG TAB PO PRN ×4 (03:06→23:32)
[2019-02-15] MEDS: CLINDAMYCIN 600MG IV 50 ML IV SCH ×3 (04:28→19:58)
[2019-02-15 05:50] VITALS: BP 131/77
[2019-02-15] MEDS: INSULIN LANTUS (GLARGINE) 1 /0.01ml (100units/ml) SC SCH ×3 (05:51→22:09)
[2019-02-15] MEDS: FUROSEMIDE 40 MG/4 ML VIAL IV SCH ×2 (05:51→18:04)
[2019-02-15] MEDS: PANTOPRAZOLE 40 MG TAB PO SCH (06:10)
[2019-02-15] MEDS: glyBURIDE 5 MG TAB PO SCH ×2 (06:10→18:05)
[2019-02-15] MEDS: LEVOTHYROXINE SODIUM 25 MCG TAB PO SCH (06:11)
--- NOTE | 2019-02-15 06:30 | NUR ---
Santoyo catheter dc'd Order to discontinue santoyo catheter. Santoyo dc'd with clean technique following deflation of balloon. Drained 500ml more of light collins urine. Patient tolerated well with no complaints of pain. Continue care.
--- NOTE | 2019-02-15 07:30 | NUR ---
RECEIVED REPORT FROM NIGHT NURSE. PATIENT RESTING IN BED, NO DISTRESS NOTED. WILL CONTINUE TO MONITOR.
[2019-02-15] MEDS: CARVEDILOL 12.5 MG TAB PO SCH ×2 (08:03→18:05)
[2019-02-15 09:00] VITALS: BP 140/74
[2019-02-15] MEDS: TICAGRELOR 90 MG TAB PO SCH (09:43)
[2019-02-15] MEDS: LACTULOSE 20Gm/30ML SOLN PO SCH (09:44)
[2019-02-15] MEDS: ASPirin 81 mg TAB PO SCH (09:44)
[2019-02-15] MEDS: METOLAZONE 5 MG TAB PO SCH (09:44)
[2019-02-15] MEDS: POTASSIUM CHL 20 Meq TABLET PO SCH ×2 (09:44→21:58)
[2019-02-15] MEDS: LOSARTAN POTASSIUM 50 MG TAB PO SCH ×2 (09:45→21:58)
[2019-02-15 13:00] VITALS: BP 135/77
[2019-02-15] MEDS ORDERED: CLOPIDOGREL 300 MG TAB PO ONE (15:00)
--- NOTE | 2019-02-15 16:00 | NUR ---
PT REPORTS THAT SHE IS WALKING FINE AND DOES NOT NEED P.T.
[2019-02-15 17:00] VITALS: BP 151/95
--- NOTE | 2019-02-15 19:30 | NUR ---
OPENING NOTE REPORT RECEIVED FROM DAY SHIFT RN PATIENT IS A/OX4 RESTING IN BED. PATIENT REQUESTING ATIVAN AND STATES SHE FEELS "ANXIOUS". PATIENT ON 3L NC TOLERATING WELL. PHYSICAL ASSESSMENT DONE-SEE INTERVENTIONS. REDNESS NOTED TO BILATERAL LOWER EXTREMITIES. TWO OPEN AREAS NOTED TO RIGHT AND LEFT PORTER, OPTIFOAM IN PLACE. DRESSING TO RIGHT GROIN C/D/I. IV NOTED TO LEFT UPPER CHEST/SHOULDER REGION INTACT AND PATENT. POC DISCUSSED WITH PATIENT INCLUDING MEDICATIONS. PATIENT VERBALIZED UNDERSTANDING. WILL MONITOR THROUGHOUT SHIFT, CALL LIGHT WITHIN REACH.
[2019-02-15] MEDS: LORazepam 0.5 MG TAB PO PRN (19:58)
[2019-02-15] MEDS: ATORVASTATIN 20 MG TAB PO SCH (21:58)
[2019-02-15 22:00] VITALS: BP 143/82
[2019-02-16] MEDS: IPRATROPIUM BROM 0.5 MG/2.5ML INH SOL NEB SCH ×3 (00:11→12:04)
[2019-02-16] MEDS: ALBUTEROL SULF 2.5 MG/0.5ML(0.5%) NEB SOLN NEB SCH ×3 (00:12→12:04)
--- NOTE | 2019-02-16 00:33 | NUR ---
PT PLACED ON 6L SIMPLE MASK. DESPITE BEING ON 4L NC AND INCREASING TO 5L PT MAINTAINED SPO2 ABOUT 83-85%. ON SIMPLE MASK SPO2 IS CURRENTLY MAINTAINED AT 94%. MED NEB TX ADMINISTERED AT THIS TIME.
[2019-02-16] MEDS: CLINDAMYCIN 600MG IV 50 ML IV SCH ×2 (04:11→12:15)
[2019-02-16 05:00] VITALS: BP 147/90
[2019-02-16] MEDS: LEVOTHYROXINE SODIUM 25 MCG TAB PO SCH (06:02)
[2019-02-16] MEDS: PANTOPRAZOLE 40 MG TAB PO SCH (06:02)
[2019-02-16] MEDS: FUROSEMIDE 40 MG/4 ML VIAL IV SCH (06:02)
[2019-02-16] MEDS: ACCU-CHEK COMFORT CURVE STRIP VI SCH ×2 (06:06→12:46)
[2019-02-16] MEDS: glyBURIDE 5 MG TAB PO SCH (06:13)
[2019-02-16] MEDS: INSULIN LANTUS (GLARGINE) 1 /0.01ml (100units/ml) SC SCH (06:13)
[2019-02-16] MEDS: OXYCODONE HCL 5MG TAB PO PRN (06:14)
[2019-02-16] MEDS: InsuLIN REG 1unit/0.01ml Soln (100units/ml) SC SCH ×2 (06:14→12:46)
[2019-02-16 06:19] LABS: Basophils # (auto) 0.1 uL; Basophils % (auto) 1.1 % (0.0-2.0); Eosinophils # (auto) 0.5 uL; Eosinophils % (auto) 5.9 % (0.0-7.0); Hemoglobin 16.4 g/dL (12.2-16.2); Lymphocytes % (auto) 23.4 % (10.0-50.0); Mean Corpuscular Hemoglobin 28.6 pg (28.0-32.0); Mean Corpuscular Hgb Conc. 33.4 g/dL (32.0-36.0); Mean Corpuscular Volume 85.7 fL (80.0-100.0); Monocytes # (auto) 0.8 uL; Monocytes % (auto) 9.5 % (0.0-12.0); Neutrophils % (auto) 60.1 % (37.0-80.0); Nucleated Red Blood Cells % 2.4 %; Platelet Count (auto) 229 10^3/uL (140-450); Red Blood Cells 5.72 10^6/uL (4.0-5.20); Red Cell Distribution Width 14.8 % (11.8-14.3); White Blood Cell 8.4 10^3/uL (4.4-10.8)
[2019-02-16 06:46] LABS: Potassium 3.9 mmol/L (3.5-5.1)
[2019-02-16 06:56] LABS: BUN/Creatinine Ratio 18.8; Calcium 8.5 mg/dL (8.5-10.1)
--- NOTE | 2019-02-16 07:02 | NUR ---
CLOSING NOTE PATIENT RESTING COMFORTABLY IN BED. PT ON 4L NC, SPO2 AT 94%, NO S/S OF DISTRESS. CALL LIGHT WITHIN REACH. WILL ENDORSE CARE TO AM SHIFT RN.
--- NOTE | 2019-02-16 08:25 | NUR ---
PT REPORTS PAIN TO IV #22 TO RIGHT CHEST AREA. EXPLAINED TO PT WILL NEED TO INSERT NEW ACCESS. PT REPORTS, I AM GOING HOME TODAY. REFUSES NEW ACCESS AT MOMENT.
[2019-02-16 09:00] VITALS: BP 130/73
[2019-02-16] MEDS: POTASSIUM CHL 20 Meq TABLET PO SCH (09:05)
[2019-02-16] MEDS: LOSARTAN POTASSIUM 50 MG TAB PO SCH (09:06)
[2019-02-16] MEDS: CARVEDILOL 12.5 MG TAB PO SCH (09:06)
[2019-02-16] MEDS: ASPirin 81 mg TAB PO SCH (09:06)
[2019-02-16] MEDS: LACTULOSE 20Gm/30ML SOLN PO SCH (09:07)
[2019-02-16] MEDS: METOLAZONE 5 MG TAB PO SCH (09:07)
[2019-02-16] MEDS ORDERED: CLOPIDOGREL BISULFATE 75 MG TAB PO SCH (10:00)
--- NOTE | 2019-02-16 10:27 | NUR ---
PATIENT OFF O2: O2SAT: 93% ON ROOM AIR AT THIS TIME. FRIEND AT BEDSIDE. PT REPORTS SHE USES OXYGEN AT HOME 1 TO 1.5L
[2019-02-16] MEDS ORDERED: POTA-220 PO (11:14)
[2019-02-16] MEDS ORDERED: CAR125T PO (11:14)
[2019-02-16] MEDS ORDERED: FURO40TA4 PO (11:14)
[2019-02-16] MEDS ORDERED: CLOP75TA28 PO (11:14)
[2019-02-16] MEDS ORDERED: METO5TAB56 PO (11:14)
[2019-02-16] MEDS ORDERED: ASPI81CH43 PO (11:14)
[2019-02-16] MEDS ORDERED: ATOR20TA50 PO (11:14)
[2019-02-16 13:00] VITALS: BP 140/87
[2019-02-16 13:11] VITALS: BP 140/87
--- NOTE | 2019-02-16 14:05 | NUR ---
DISCHARGE INSTRUCTIONS PROVIDED TO PT. PT VERBALIZED UNDERSTANDING FOR PRESCRIPTION ORDERS AND FOLLOW UP APPOINTMENT. PT REPORTS SHE HAS A PRIMARY CARE PROVIDER AND THAT SHE WILL FOLLOW UP. TELE BOX REMOVED AND RETURNED TO MONITOR. EDUCATIONAL MATERIAL PROVIDED, TEACHING ON LIFESTYLE MODIFICATIONS PROVIDED, ALL QUESTIONS AND CONCERNS ADDRESSED. PT SAFELY ESCORTED OUT OF UNIT VIA WHEELCHAIR.
== END 2019-02-16 14:20 | disposition home or self-care (01) | DRG 246 ==
LOC: EDBD 00:33 → ER 00:40 → TELE 00:41 → TELE-WESTW 14:17
PROVIDERS: ADMIT Nurse Practitioner; ATTEND Internal Medicine
PROC: 027034Z Dilation of Coronary Artery, One Artery with Drug-eluting Intraluminal Device, Percutaneous Approach (ICD-10-PCS; principal; 2019-02-13)
PROC: 4A023N7 Measurement of Cardiac Sampling and Pressure, Left Heart, Percutaneous Approach (ICD-10-PCS; 2019-02-13)
PROC: B2111ZZ Fluoroscopy of Multiple Coronary Arteries using Low Osmolar Contrast (ICD-10-PCS; 2019-02-13)
PROC: B2151ZZ Fluoroscopy of Left Heart using Low Osmolar Contrast (ICD-10-PCS; 2019-02-13)
PROC: 4A033BC Measurement of Arterial Pressure, Coronary, Percutaneous Approach (ICD-10-PCS; 2019-02-13)
DX: I21.4 Non-ST elevation (NSTEMI) myocardial infarction (principal); I50.43 Acute on chronic combined systolic (congestive) and diastolic (congestive) heart failure; N17.0 Acute kidney failure with tubular necrosis; Z68.41 Body mass index [BMI] 40.0-44.9, adult; F11.20 Opioid dependence, uncomplicated; I13.0 Hypertensive heart and chronic kidney disease with heart failure and stage 1 through stage 4 chronic kidney disease, or unspecified chronic kidney disease; I42.7 Cardiomyopathy due to drug and external agent; J96.10 Chronic respiratory failure, unspecified whether with hypoxia or hypercapnia; L03.115 Cellulitis of right lower limb; L03.116 Cellulitis of left lower limb; E03.9 Hypothyroidism, unspecified; E11.22 Type 2 diabetes mellitus with diabetic chronic kidney disease; E11.65 Type 2 diabetes mellitus with hyperglycemia; E66.01 Morbid (severe) obesity due to excess calories; F15.10 Other stimulant abuse, uncomplicated; F17.210 Nicotine dependence, cigarettes, uncomplicated; I25.10 Atherosclerotic heart disease of native coronary artery without angina pectoris; I87.2 Venous insufficiency (chronic) (peripheral); J44.9 Chronic obstructive pulmonary disease, unspecified; N18.2 Chronic kidney disease, stage 2 (mild); Z80.0 Family history of malignant neoplasm of digestive organs; Z80.1 Family history of malignant neoplasm of trachea, bronchus and lung; Z80.3 Family history of malignant neoplasm of breast; Z80.41 Family history of malignant neoplasm of ovary; Z80.8 Family history of malignant neoplasm of other organs or systems; Z81.8 Family history of other mental and behavioral disorders; Z82.0 Family history of epilepsy and other diseases of the nervous system; Z82.3 Family history of stroke; Z82.49 Family history of ischemic heart disease and other diseases of the circulatory system; Z82.5 Family history of asthma and other chronic lower respiratory diseases; Z82.62 Family history of osteoporosis; Z83.3 Family history of diabetes mellitus; Z91.14 Patient's other noncompliance with medication regimen; Z95.810 Presence of automatic (implantable) cardiac defibrillator; Z99.81 Dependence on supplemental oxygen; Z82.61 Family history of arthritis; Z88.6 Allergy status to analgesic agent
CPT/HCPCS: 36415; 51702; 71045; 73700; 80048; 80053; 80061; 80307; 81001; 82962; 83036; 83735; 83880; 84443; 84484; 84702; 85025; 85379; 85610; 85730; 86141; 86850; 86900; 86901; 87040; 93005; 93306; 94640; 96372; 96374; 96375; 99152; 99153; C1874; G0378; J1815; J2250; J3490

== ENCOUNTER 2019-03-03 23:19 | Inpatient (IN) | payer MEDICAID ==
[~2019-03-03] VITALS: Ht 177.8 cm; Wt 130.6 kg
[~2019-03-03 23:19] MED LIST changes: +ATOR20TA50 PO; -Atorvastatin Calcium PO; -CARV6.2551 PO; -CLO3P TD; +CLOP75TA28 PO; -ENAL2.5T2 PO; -ISOS10TA2 PO; -LISI-646 PO; +METO5TAB56 PO; -TICA90TA PO
[2019-03-04 03:11] LABS: Basophils # (auto) 0.1 uL; Basophils % (auto) 1.1 % (0.0-2.0); Eosinophils # (auto) 0.2 uL; Eosinophils % (auto) 3.4 % (0.0-7.0); Hematocrit 44.8 % (36.0-46.0); Hemoglobin 15.7 g/dL (12.2-16.2); Lymphocytes # (auto) 1.7 uL; Lymphocytes % (auto) 23.4 % (10.0-50.0); Mean Corpuscular Hemoglobin 28.9 pg (28.0-32.0); Mean Corpuscular Volume 82.8 fL (80.0-100.0); Monocytes # (auto) 0.3 uL; Monocytes % (auto) 4.6 % (0.0-12.0); Neutrophils # (auto) 4.9 uL; Neutrophils % (auto) 67.5 % (37.0-80.0); Nucleated Red Blood Cells % 0.2 %; Platelet Count (auto) 201 10^3/uL (140-450); Red Blood Cells 5.41 10^6/uL (4.0-5.20); Red Cell Distribution Width 15.8 % (11.8-14.3); White Blood Cell 7.3 10^3/uL (4.4-10.8)
[2019-03-04 03:23] LABS: Albumin 3.3 g/dL (3.4-5.0); BUN/Creatinine Ratio 11.7; Calcium 8.4 mg/dL (8.5-10.1); Potassium 3.1 mmol/L (3.5-5.1)
[2019-03-04 03:26] LABS: Bilirubin, Total 1.7 mg/dL (0.2-1.0); Total Protein 7.1 g/dL (6.4-8.2)
[2019-03-04 03:27] LABS: Lactic Acid w/Reflex 2.2 mmol/L (0.4-2.0)
[2019-03-04] MEDS ORDERED: LABETALOL HCL 5 MG/ML ML 20ML VIAL IV ONE (04:30)
[2019-03-04 08:32] LABS: Urine Bacteria FEW /hpf (None Seen); Urine Blood 1+ /uL (Negative); Urine Hyaline Cast FEW /lpf (0 - 2); Urine Specific Gravity 1.032 (1.001-1.035); Urine WBC 96 /hpf (0 - 5)
[2019-03-04] MEDS ORDERED: ONDANSETRON HCL 4 MG/2 ML VIAL IV ONE (09:00)
[2019-03-04] MEDS ORDERED: InsuLIN REG 1unit/0.01ml Soln (100units/ml) IV ONE (09:00)
[2019-03-04] MEDS ORDERED: SODIUM CHLORIDE 0.9% 1,000 ML IV ONE (09:00)
[2019-03-04] MEDS ORDERED: HYDROmorphone HCL 2 MG/ML VL IV ONE (09:00)
[2019-03-04 09:44] LABS: Alcohol, Urine < 3.0 mg/dL (0-5); Amphetamine Screen, Urine POSITIVE (NEGATIVE); Barbiturate Scree,Urine NEGATIVE (NEGATIVE); Benzodiazephine Screen, Urine NEGATIVE (NEGATIVE); Cannabinoid Screen, Urine NEGATIVE (NEGATIVE); Cocaine Screen, Urine NEGATIVE (NEGATIVE); Opiate Scree,Urine NEGATIVE (NEGATIVE); Phencyclidine Screen, Urine NEGATIVE (NEGATIVE)
[2019-03-04] MEDS ORDERED: FUROSEMIDE 20 MG/2 ML VIAL IV ONE (12:45)
[2019-03-04] MEDS ORDERED: cefTRIAXone 1GM/50ML D5W 50 ML IV ONE (13:00)
[2019-03-04] MEDS ORDERED: IPRATROPIUM BROM 0.5 MG/2.5ML INH SOL NEB PRN (14:45)
[2019-03-04] MEDS ORDERED: DEXTROSE (50%) 50ML SYRG IV PRN (14:45)
[2019-03-04] MEDS ORDERED: ONDANSETRON HCL 4 MG/2 ML VIAL IV PRN (14:45)
[2019-03-04] MEDS ORDERED: DOCUSATE SOD 100 MG CAP PO PRN (14:45)
[2019-03-04] MEDS ORDERED: ACETAMINOPHEN 500 MG TAB PO PRN (14:45)
[2019-03-04] MEDS ORDERED: NITROGLYCERIN 0.4 MG SL TAB SL PRN (14:45)
[2019-03-04] MEDS ORDERED: ALBUTEROL SULF 2.5 MG/0.5ML(0.5%) NEB SOLN NEB PRN (14:45)
[2019-03-04] MEDS ORDERED: POTASSIUM EFFERVESENT TAB 25 MEQ PO ONE (15:00)
[2019-03-04] MEDS: InsuLIN REG 1unit/0.01ml Soln (100units/ml) SC SCH ×2 (15:50→21:27)
[2019-03-04] MEDS: ACCU-CHEK COMFORT CURVE STRIP VI SCH ×2 (15:50→21:27)
[2019-03-04] MEDS: HYDROcodone-ACET 5/325MG TAB PO PRN (16:35)
--- NOTE | 2019-03-04 17:34 | NUR ---
RECEIVED FORM ER, PT REPORTED CHEST PAIN, V/S BP 141/98, HR 88, O2 SAT AT 99% AT 15 LIT VIA FACE MASK, EKG DONE AND REVIEWED BY DR. PERALTA. NO FURTHER ORDERS RECEIVED. PT KEEPS FALLING ASLEEP WHILE PERFORMING THE EKG AND V/S, WILL CONTINUE TO MONITOR PT.
--- NOTE | 2019-03-04 17:45 | NUR ---
Telemetry admit from ER [facility] OCAMPO admitted to Telemetry unit after SBAR received. Patient oriented to Arina Kiran, primary RN, unit, room, bed, and unit policies regarding patient care and visiting hours. Patient now on continuous telemetry monitoring, tele box # 29 and telemetry reading on arrival to unit is sinus rhythm. Patient placed on bedside oxygen 15 with a mask, weighed by bedscale and encouraged to call if they need something. All questions and concerns addressed, patient verbalized understanding.
--- NOTE | 2019-03-04 18:13 | NUR ---
Decreased O2 at 7 lit via mask, pt's O2 sat at 92-96%, will continue to monitor.
--- NOTE | 2019-03-04 21:38 | NUR ---
Opening Shift Note Pt is resting in bed with eye closed and resp rate is even and unlabored. No s/s of any distress noted at this time. Pt awoke and POC discussed with pt and pt verbalizes understanding. Bed is low, wheels are locked, and call light is with in reach. Pt appears very drowsy and bed alsrm set for pt safety. Addendum: 03/04/19 at 2142 by RENETTA PEDERSEN RN correction =time of opening shift note = 1934
[2019-03-04 22:00] VITALS: BP 143/98
[2019-03-04] MEDS: CLINDAMYCIN 300MG IV 50 ML IV SCH (22:15)
[2019-03-04] MEDS: CARVEDILOL 12.5 MG TAB PO SCH (22:16)
[2019-03-04] MEDS: LOSARTAN POTASSIUM 50 MG TAB PO SCH (22:18)
[2019-03-04] MEDS: ATORVASTATIN 20 MG TAB PO SCH (22:18)
[2019-03-05] MEDS: HYDROcodone-ACET 5/325MG TAB PO PRN ×3 (00:39→19:38)
[2019-03-05] MEDS: InsuLIN REG 1unit/0.01ml Soln (100units/ml) SC SCH ×6 (00:40→21:22)
[2019-03-05] MEDS: ACCU-CHEK COMFORT CURVE STRIP VI SCH ×6 (00:41→21:23)
[2019-03-05 04:40] VITALS: BP 112/76
[2019-03-05] MEDS: CLINDAMYCIN 300MG IV 50 ML IV SCH ×3 (05:28→21:54)
--- NOTE | 2019-03-05 07:15 | NUR ---
Open Shift Note Received report on patient, awake and sitting up in bed but drowsy. Patient alert and oriented but slow to answer. Discussed POC with patient. Patient states she has sleep apnea and has difficulty sleeping at night, but refuses to wear the sleeping mask. Bed in lowest locked position, side rails up x2 and call light within reach. Will continue to monitor.
[2019-03-05 09:23] VITALS: BP 123/77
[2019-03-05] MEDS: cefTRIAXone 1GM/50ML D5W 50 ML IV SCH (09:42)
[2019-03-05] MEDS: LOSARTAN POTASSIUM 50 MG TAB PO SCH ×2 (09:43→21:55)
[2019-03-05] MEDS: CLOPIDOGREL BISULFATE 75 MG TAB PO SCH (09:43)
[2019-03-05] MEDS: FAMOTIDINE 20 MG TAB PO SCH (09:43)
[2019-03-05] MEDS: ASPirin 81 mg TAB PO SCH (09:45)
[2019-03-05] MEDS: CARVEDILOL 12.5 MG TAB PO SCH ×2 (09:45→21:55)
[2019-03-05] MEDS ORDERED: POTASSIUM EFFERVESENT TAB 25 MEQ PO ONE (10:45)
[2019-03-05] MEDS ORDERED: AZITHROMYCIN 250 MG TAB PO ONE (10:45)
[2019-03-05] MEDS ORDERED: DEXTROSE (50%) 50ML SYRG IV PRN (10:45)
--- NOTE | 2019-03-05 11:15 | NUR ---
WOUND CARE NOTE: IN TO SEE PATIENT AT THIS TIME PER WOUND CARE CONSULT REQUEST. PATIENT NOTED TO HAVE WOUNDS TO BLE AT TIME OF ADMIT. WOUNDS PHOTOGRAPHED AT THAT TIME BY BEDSIDE NURSE FOR REFERENCE. PATIENT ADMITTED TO [facility] WITH DIAGNOSIS OF BLE CELLULITIS. CURRENT CORNEL SCORE IS 16. PATIENT CAN SELF TURN/REPOSITION SELF. SHE HAS CHRONIC HISTORY WITH VENOUS INSUFFICIENCY. SHE HAS ERYTHEMIC, EDEMATOUS BILATERAL LOWER EXTREMITIES, WITH VENOUS STASIS ULCER TO RIGHT AND LEFT ANTERIOR PORTER. SHE IS ALSO NOTED TO HAVE XEROSIS, WITH FUNGAL OVERGROWTH AND FISSURES TO HER FEET/HEELS. WOUND CULTURE TAKEN AT THIS TIME, SENT OFF TO LAB FOR PROCESSING. CLEANSED WOUNDS WITH WOUND CLEANSER, PATTED DRY WITH STERILE GAUZE. APPLIED THERAHONEY OPTIFOAM GENTLE DRESSINGS, ELEVATED BOTH LEGS UP ONTO PILLOWS FOR EDEMA CONTROL. RECOMMEND: EOD/PRN DRESSING CHANGES TO OPEN WOUNDS ON BLE, BID APPLICATION WITH ANTIFUNGAL CLEAR OINTMENT TO BILATERAL FEET/HEELS, SKIN/WOUND CARE PLAN, DIETARY CONSULT, CONTINUED MONITORING BY WOUND CARE TEAM. Addendum: 03/05/19 at 1611 by Maryjane Diaz RN Amended: Links added.
[2019-03-05 12:30] VITALS: BP 95/53
--- NOTE | 2019-03-05 13:30 | NUR ---
Wound Culture Sent Sent wound culture to lab.
--- NOTE | 2019-03-05 14:38 | NUR ---
Patient Aware Respiratory and Urine Culture Are Needed Patient has sample cups at bedside and is aware both cultures are needed.
[2019-03-05 17:05] VITALS: BP 117/77
[2019-03-05] MEDS: FUROSEMIDE 20 MG TAB PO SCH (17:12)
--- NOTE | 2019-03-05 18:26 | NUR ---
Paged Hospitalist Paged transmission builder hospitalist to inform him of inability to get accurate pulse ox reading. Kyle Ritter returned call and stated to order continuos pulse oximeter reading as well as an ABG. Orders read back and verified.
--- NOTE | 2019-03-05 18:38 | NUR ---
Closing Note Patient asleep in bed with head of bed elevated above 30 degrees. Patient shows no signs of distress at this time. Bed in lowest locked position, side rails up x2 and call light within reach .
[2019-03-05 18:50] VITALS: BP 143/98
--- NOTE | 2019-03-05 18:50 | NUR ---
RT NOTE: STAT ORDER FOR ABG AND CONT POX. ATTEMPTED MULTIPLE SIGHTS FOR POX BUT PT EXTREMITIES COLD TO TOUCH AND UNABLE TO MAINTAIN AN ACCURATE READING. ABG OBTAINED AND RESULTS GIVEN TO TEJAS JIMENEZ AND UPDATED HER ON POX. PT REMAINS ON 5LPM NC AND NO DISTRESS NOTED. PT REFUSED ANY TYPE OF MASK AND ONLY WANTS NC.
--- NOTE | 2019-03-05 19:25 | NUR ---
Opening Shift Note Assumed care of patient, awake and alert. No S/S of distress/SOB. Patient c/o bilateral leg pain. Instructed on POC and to call for assist PRN, will continue to monitor for changes Q1hr and PRN.
[2019-03-05] MEDS: ATORVASTATIN 20 MG TAB PO SCH (21:54)
[2019-03-05 21:58] VITALS: BP 143/98
[2019-03-06] MEDS: ACCU-CHEK COMFORT CURVE STRIP VI SCH ×6 (00:32→20:45)
[2019-03-06] MEDS: InsuLIN REG 1unit/0.01ml Soln (100units/ml) SC SCH ×6 (00:32→21:04)
[2019-03-06] MEDS: HYDROcodone-ACET 5/325MG TAB PO PRN ×3 (02:48→16:59)
[2019-03-06 05:00] VITALS: BP 101/57
[2019-03-06 05:00] LABS: Basophils # (auto) 0.2 uL; Basophils % (auto) 2.2 % (0.0-2.0); Eosinophils # (auto) 0.4 uL; Eosinophils % (auto) 5.4 % (0.0-7.0); Hematocrit 44.2 % (36.0-46.0); Lymphocytes # (auto) 1.8 uL; Lymphocytes % (auto) 25.9 % (10.0-50.0); Mean Corpuscular Hemoglobin 28.5 pg (28.0-32.0); Mean Corpuscular Hgb Conc. 33.8 g/dL (32.0-36.0); Mean Corpuscular Volume 84.2 fL (80.0-100.0); Monocytes # (auto) 0.4 uL; Monocytes % (auto) 5.8 % (0.0-12.0); Neutrophils # (auto) 4.2 uL; Neutrophils % (auto) 60.7 % (37.0-80.0); Nucleated Red Blood Cells % 0.1 %; Platelet Count (auto) 204 10^3/uL (140-450); Red Blood Cells 5.25 10^6/uL (4.0-5.20); Red Cell Distribution Width 16.2 % (11.8-14.3); White Blood Cell 6.9 10^3/uL (4.4-10.8)
[2019-03-06 05:27] LABS: Potassium 3.7 mmol/L (3.5-5.1)
[2019-03-06 05:34] LABS: Albumin 2.6 g/dL (3.4-5.0); BUN/Creatinine Ratio 20.4; Calcium 7.9 mg/dL (8.5-10.1)
[2019-03-06 05:38] LABS: Total Protein 6.2 g/dL (6.4-8.2)
--- NOTE | 2019-03-06 05:55 | NUR ---
CRITICAL TROPONIN @0542 Received call from lab due to the patient having a critical troponin level of 2.120. Hospitalist Riya has been notified about the critical trop. Upon assessment, the patient denies any chest pain and is asymptomatic. Vitals were stable (111/75, HR 60, RR 18, SPO2 96%) Maximino Ritter requested a consultation with dragline mechanic Hiren for further evaluation. Nitroglycerin 0.4 TD patch daily and a EKG was also ordered.
[2019-03-06] MEDS: CLINDAMYCIN 300MG IV 50 ML IV SCH ×3 (06:36→23:02)
[2019-03-06] MEDS: NITROGLYCERIN 0.4MG/HR TOPICAL PATCH TD SCH ×2 (06:37→09:37)
[2019-03-06] MEDS: FUROSEMIDE 20 MG TAB PO SCH ×2 (06:37→18:11)
--- NOTE | 2019-03-06 08:00 | NUR ---
Opening Shift Note Assumed care of patient, resting with eyes closed. Wakes easily to sound/touch but quickly falls back to sleep. No S/S of distress/SOB. C/o pain to BLE. Will give PRN pain medication when possible as it is PRN. Instructed on POC and to call for assist PRN, will continue to monitor for changes Q1hr and PRN.
[2019-03-06 09:00] VITALS: BP 138/73
[2019-03-06] MEDS: cefTRIAXone 1GM/50ML D5W 50 ML IV SCH (09:07)
[2019-03-06] MEDS: ASPirin 81 mg TAB PO SCH (09:36)
[2019-03-06] MEDS: AZITHROMYCIN 250 MG TAB PO SCH (09:37)
[2019-03-06] MEDS: FAMOTIDINE 20 MG TAB PO SCH (09:37)
[2019-03-06] MEDS: POTASSIUM CHL 10 Meq TABLET PO SCH (09:37)
[2019-03-06] MEDS: CLOPIDOGREL BISULFATE 75 MG TAB PO SCH (09:37)
[2019-03-06] MEDS: CARVEDILOL 12.5 MG TAB PO SCH ×2 (09:38→23:03)
[2019-03-06] MEDS: LOSARTAN POTASSIUM 50 MG TAB PO SCH (09:39)
--- NOTE | 2019-03-06 10:12 | NUR ---
Respiratory note: PT ASSESSED FOR PRN MEDNEB TX. NO RESPIRATORY DISTRESS NOTED. SPO2 95% ON 2L NC HR 67 RR 14 B/S CLEAR-DIMINISHED. MEDNEB NOT INDICATED AT THIS TIME. PT AWARE TO HAVE RT PAGED IF THEY BECOME SOB.
[2019-03-06] MEDS ORDERED: SODIUM CHLORIDE 0.9% 1,000 ML IV SCH (11:32)
[2019-03-06] MEDS: Ensure HIGH Protein Chocolate 8oz Bottle PO SCH ×2 (12:19→18:10)
--- NOTE | 2019-03-06 12:19 | NUR ---
NUTRITION CONSULT/ASSESSMENT NOTES Please refer to link notes of nutrition screen form filed under the intervention section of the plan of care for further details. Est. Needs: 1850 kcal to 2250 kcal (15-18 kcal/kgBW), 75 gms to 97 gms pro (1.0-1.3 gms/kgIBW: 75 kg). Will continue to monitor pertinent labs and reassess nutrient need prn Thank you for this consult. Addendum: 03/06/19 at [address] Amended: Links added.
[2019-03-06] MEDS ORDERED: SACUBITRIL-VALSARTAN 24mg/26mg TAB PO ONE (12:45)
[2019-03-06 13:00] VITALS: BP 114/75
[2019-03-06 17:00] VITALS: BP_SYST 114; BP_SYST 128; BP_DIAS 70; BP_DIAS 75
[2019-03-06] MEDS: LORazepam 0.5 MG TAB PO PRN (18:44)
--- NOTE | 2019-03-06 21:00 | NUR ---
Respiratory note: PT ASSESSED FOR PRN MED NEB TX. HR 72, RR 18, SPO2 96% ON 2L NC. NO SIGNS OF ANY RESPIRATORY DISTRESS NOTED. ADVISED PT TO CALL IF TX IS NEEDED. RT NAME AND PAGER NUMBER WRITTEN ON PT'S BOARD.
[2019-03-06 21:54] VITALS: BP 136/91
[2019-03-06] MEDS: SACUBITRIL-VALSARTAN 24mg/26mg TAB PO SCH (23:02)
[2019-03-06] MEDS: ATORVASTATIN 20 MG TAB PO SCH (23:03)
[2019-03-07] MEDS: HYDROcodone-ACET 5/325MG TAB PO PRN ×2 (00:40→20:47)
[2019-03-07] MEDS: InsuLIN REG 1unit/0.01ml Soln (100units/ml) SC SCH ×7 (00:44→23:51)
[2019-03-07] MEDS: ACCU-CHEK COMFORT CURVE STRIP VI SCH ×7 (00:44→23:50)
[2019-03-07 04:46] LABS: Basophils # (auto) 0.1 uL; Basophils % (auto) 1.7 % (0.0-2.0); Eosinophils # (auto) 0.3 uL; Eosinophils % (auto) 5.2 % (0.0-7.0); Hematocrit 43.9 % (36.0-46.0); Hemoglobin 15.2 g/dL (12.2-16.2); Lymphocytes # (auto) 1.6 uL; Lymphocytes % (auto) 25.1 % (10.0-50.0); Mean Corpuscular Hemoglobin 28.8 pg (28.0-32.0); Mean Corpuscular Hgb Conc. 34.6 g/dL (32.0-36.0); Mean Corpuscular Volume 83.2 fL (80.0-100.0); Monocytes # (auto) 0.4 uL; Monocytes % (auto) 6.1 % (0.0-12.0); Neutrophils # (auto) 3.9 uL; Neutrophils % (auto) 61.9 % (37.0-80.0); Nucleated Red Blood Cells % 0.2 %; Platelet Count (auto) 192 10^3/uL (140-450); Red Blood Cells 5.28 10^6/uL (4.0-5.20); Red Cell Distribution Width 16.3 % (11.8-14.3); White Blood Cell 6.4 10^3/uL (4.4-10.8)
[2019-03-07 04:52] VITALS: BP 123/78
[2019-03-07 04:55] LABS: INR 1.08 (0.9-1.15); Partial Thromboplastin Time 25.6 sec (23.64-32.05)
[2019-03-07 05:06] LABS: Albumin 2.8 g/dL (3.4-5.0); Calcium 8.2 mg/dL (8.5-10.1); Potassium 3.8 mmol/L (3.5-5.1)
[2019-03-07 05:11] LABS: Total Protein 6.5 g/dL (6.4-8.2)
[2019-03-07] MEDS: CLINDAMYCIN 300MG IV 50 ML IV SCH ×3 (05:37→22:19)
[2019-03-07] MEDS: FUROSEMIDE 20 MG TAB PO SCH ×2 (05:37→17:58)
--- NOTE | 2019-03-07 06:05 | NUR ---
HOSPITALIST PAGED CRITICAL TROPONIN 1.990 REPORTED FROM LAB.
--- NOTE | 2019-03-07 06:20 | NUR ---
Respiratory note: PT AWAKE, AND ALERT. NO RESPIRATORY DISTRESS NOTED. SPO2 96% ON 3L NC. HR 66, RR 18, BS CLEAR T/O. PRN MEDNEB TX NOT INDICATED. INFORMED PT TO PUSH CALL BUTTON IF INCREASED WOB, SOB, OR WHEEZING OCCUR.
--- NOTE | 2019-03-07 06:36 | NUR ---
EKG PERFORMED PRE-OP EKG PERFORMED AND PLACED IN FRONT OF CHART.
--- NOTE | 2019-03-07 06:45 | NUR ---
HOSPITALIST RETURNS CALL NOTIFIED HOSPITALIST ERIK OF CRITICAL TROPONIN 1.990. PATIENT TO GO FOR [facility] TODAY AT 0800. NO NEW ORDERS RECEIVED.
[2019-03-07] MEDS: Ensure HIGH Protein Chocolate 8oz Bottle PO SCH ×3 (08:00→17:58)
[2019-03-07] MEDS: cefTRIAXone 1GM/50ML D5W 50 ML IV SCH (08:27)
[2019-03-07 09:00] VITALS: BP 154/90
[2019-03-07] MEDS: POTASSIUM CHL 10 Meq TABLET PO SCH (09:46)
[2019-03-07] MEDS: ASPirin 81 mg TAB PO SCH (09:46)
[2019-03-07] MEDS: FAMOTIDINE 20 MG TAB PO SCH (09:46)
[2019-03-07] MEDS: CLOPIDOGREL BISULFATE 75 MG TAB PO SCH (09:47)
[2019-03-07] MEDS: AZITHROMYCIN 250 MG TAB PO SCH (09:47)
[2019-03-07] MEDS: SACUBITRIL-VALSARTAN 24mg/26mg TAB PO SCH ×2 (09:47→22:19)
[2019-03-07] MEDS: CARVEDILOL 12.5 MG TAB PO SCH ×2 (09:47→22:20)
[2019-03-07] MEDS: NITROGLYCERIN 0.4MG/HR TOPICAL PATCH TD SCH (09:48)
--- NOTE | 2019-03-07 12:05 | NUR ---
PT TRANSPORTED TO [facility] VIA BED, PT IS AWAKE AND ALERT, PRE-OP CHECKLIST COMPLETED, CONSENTS SIGNED, IV ON LEFT EJ PATENT AND FLUSHING.
[2019-03-07] MEDS ORDERED: LIDOCAINE 2%HCL (LOCAL ANESTH.) INJ 20ML MDV ONE (12:37)
[2019-03-07] MEDS ORDERED: IODIXANOL 320MG/ML 100ML BTL IV ONE ×2 (12:39→13:19)
[2019-03-07] MEDS ORDERED: ANGIOMAX 250 MG VIAL IV ONE (12:43)
[2019-03-07] MEDS ORDERED: SODIUM CHL 0.9% 0 ML ONE (12:44)
[2019-03-07] MEDS ORDERED: MIDAZOLAM HCL 1MG/1ML-2 ML VIAL ONE (12:44)
[2019-03-07] MEDS ORDERED: fentaNYL CITRATE 100 MCG/2 ML VL ONE (12:44)
[2019-03-07] MEDS ORDERED: VERAPAMIL 2.5MG/ML INJ 2ML VIAL IV ONE (12:48)
[2019-03-07 13:00] VITALS: BP 120/85
[2019-03-07] MEDS ORDERED: FUROSEMIDE 20 MG/2 ML VIAL ONE (13:24)
--- NOTE | 2019-03-07 13:45 | NUR ---
RECEIVED REPORT FROM TEJAS ATKINSON RECEIVED INSTRUCTION TO START DEFLATING THE VASC BAND AT 1440.
--- NOTE | 2019-03-07 14:00 | NUR ---
RECEIVED PT FROM [facility] VIA BED, NOTED VASC BAND ON RIGHT WRIST, NO SIGNS OF BLEEDING NOTED, WILL CONTINUE TO MONITOR.
--- NOTE | 2019-03-07 14:40 | NUR ---
STARTED DEFLATING THE VASC BAND, NO SIGNS OF BLEEDING NOTED, WILL CONTINUE TO MONITOR.
[2019-03-07 17:00] VITALS: BP 122/85
--- NOTE | 2019-03-07 17:15 | NUR ---
VASC BAND REMOVED, GAUZE AND TEGADERM APPLIED.
--- NOTE | 2019-03-07 19:20 | NUR ---
Respiratory note: PT ASSESSED FOR PRN MED NEB TX. HR 78, RR 18, SPO2 96% ON 2L NC. NO SIGNS OF ANY RESPIRATORY DISTRESS NOTED. ADVISED PT TO CALL IF TX IS NEEDED. RT NAME AND PAGER NUMBER WRITTEN ON PT'S BOARD.
--- NOTE | 2019-03-07 20:30 | NUR ---
OPENING NOTE PATIENT IS AWAKE AND ALERT X4, SITTING UP AT BEDSIDE. PATIENT AMBULATED FROM BATHROOM INDEPENDENTLY. PATIENT'S RIGHT WRIST WITH DRESSING C/D/I. PATIENT IS S/P [facility] TODAY. TEGADERM AND GAUZE IN PLACE TO RIGHT WRIST. PULSES PALPABLE AND STRONG TO RIGHT AND LEFT WRIST. SENSATION INTACT TO RIGHT WRIST/HAND. NO SWELLING/HEMATOMA FORMATION NOTED. BLE EDEMA NOTED, DRESSING TO RIGHT AND LEFT CALF, C/D/I. DRESSING TO BLE CHANGED TODAY, PER REPORT. EOD DRESSING CHANGES ORDERED. PATIENT DENIES CHEST PAIN. PATIENT REPORTS LE PAIN RATED 9/10, WILL MEDICATE WITH PRN PAIN MEDICATION ORDERED. PATIENT IS ON O2 AT 3LNC. IV SITE TO LEFT IJ, SALINE LOCKED, ASYMPTOMATIC. DRESSING CHANGED TODAY PER REPORT. CALL LIGHT WITHIN REACH, BED IN LOWEST POSITION.
[2019-03-07 22:00] VITALS: BP 144/69
[2019-03-07] MEDS: ATORVASTATIN 20 MG TAB PO SCH (22:19)
[2019-03-08] MEDS: ACCU-CHEK COMFORT CURVE STRIP VI SCH ×5 (04:00→20:38)
[2019-03-08] MEDS: InsuLIN REG 1unit/0.01ml Soln (100units/ml) SC SCH ×5 (04:00→20:00)
[2019-03-08 05:00] VITALS: BP 126/77
--- NOTE | 2019-03-08 05:24 | NUR ---
PATIENT REFUSED SPONGE BATH OR SHOWER AT 2200. 03/07/19 AND AGAIN AT 0500 03/08/19.
[2019-03-08 06:12] LABS: Basophils # (auto) 0.1 uL; Basophils % (auto) 1.2 % (0.0-2.0); Eosinophils # (auto) 0.3 uL; Hematocrit 43.6 % (36.0-46.0); Hemoglobin 15.2 g/dL (12.2-16.2); Lymphocytes # (auto) 1.8 uL; Lymphocytes % (auto) 27.7 % (10.0-50.0); Mean Corpuscular Hemoglobin 28.7 pg (28.0-32.0); Mean Corpuscular Hgb Conc. 34.8 g/dL (32.0-36.0); Mean Corpuscular Volume 82.5 fL (80.0-100.0); Monocytes # (auto) 0.5 uL; Monocytes % (auto) 7.7 % (0.0-12.0); Neutrophils # (auto) 3.7 uL; Neutrophils % (auto) 58.4 % (37.0-80.0); Nucleated Red Blood Cells % 0.2 %; Platelet Count (auto) 207 10^3/uL (140-450); Red Blood Cells 5.29 10^6/uL (4.0-5.20); Red Cell Distribution Width 16.1 % (11.8-14.3); White Blood Cell 6.4 10^3/uL (4.4-10.8)
[2019-03-08] MEDS: CLINDAMYCIN 300MG IV 50 ML IV SCH (06:29)
[2019-03-08] MEDS: FUROSEMIDE 20 MG TAB PO SCH ×2 (06:29→17:07)
--- NOTE | 2019-03-08 06:30 | NUR ---
PATIENT'S RIGHT WRIST DRESSING REMAINS C/D/I. PULSES PALPABLE AND STRONG TO RIGHT AND LEFT WRIST. SENSATION INTACT TO RIGHT WRIST/HAND. NO SWELLING/HEMATOMA FORMATION NOTED.
[2019-03-08 06:38] LABS: Potassium 3.8 mmol/L (3.5-5.1)
[2019-03-08 06:46] LABS: BUN/Creatinine Ratio 20.6; Calcium 8.3 mg/dL (8.5-10.1)
--- NOTE | 2019-03-08 06:54 | NUR ---
CRITICAL TROPONIN 1.950 CALL FROM LAB REGARDING CRITICAL TROPONIN OF 1.950, WILL NOTIFY MD. PATIENT S/P [facility] YESTERDAY.
--- NOTE | 2019-03-08 06:55 | NUR ---
HOSPITALIST PAGED RE:CRITICAL TROPONIN
--- NOTE | 2019-03-08 06:57 | NUR ---
HOSPITALIST RETURNS CALL SPOKE TO HOSPITALIST ERIK REGARDING CRITICAL TROPONIN OF 1.950. NO NEW ORDERS RECEIVED.
[2019-03-08] MEDS: HYDROcodone-ACET 5/325MG TAB PO PRN ×2 (08:33→20:39)
[2019-03-08] MEDS: Ensure HIGH Protein Chocolate 8oz Bottle PO SCH ×3 (08:58→17:07)
[2019-03-08] MEDS: cefTRIAXone 1GM/50ML D5W 50 ML IV SCH (08:58)
[2019-03-08 09:00] VITALS: BP 137/96
--- NOTE | 2019-03-08 09:00 | NUR ---
Opening Shift Note Assumed care of patient, aroused to voice, patient nasal cannula off patient with oxygen off. Patient in no signs/symptoms of distress. Nasal cannula and 3L of oxygen restarted. Patient is and alert and orientated. Instructed on POC and to call for assist PRN, will continue to monitor for changes Q1hr and PRN.
--- NOTE | 2019-03-08 09:55 | NUR ---
Respiratory note: PT ASSESSED FOR PRN MED NEB TX. NO SOB NOTED ON 3L NC. PT WAS SLEEPING DURING THE ASSESSMENT. POX 95%, HR 86, RR 18. B/S ARE CLEAR AND DECREASED THROUGHOUT POSTERIORLY.
[2019-03-08] MEDS: ASPirin 81 mg TAB PO SCH (10:26)
[2019-03-08] MEDS: CIPROFLOXACIN HCL 500 MG TAB PO SCH ×2 (10:26→21:49)
[2019-03-08] MEDS: SACUBITRIL-VALSARTAN 24mg/26mg TAB PO SCH ×2 (10:27→21:49)
[2019-03-08] MEDS: CARVEDILOL 12.5 MG TAB PO SCH ×2 (10:27→21:49)
[2019-03-08] MEDS: AZITHROMYCIN 250 MG TAB PO SCH (10:27)
[2019-03-08] MEDS: CLOPIDOGREL BISULFATE 75 MG TAB PO SCH (10:27)
[2019-03-08] MEDS: FAMOTIDINE 20 MG TAB PO SCH (10:27)
[2019-03-08] MEDS: POTASSIUM CHL 10 Meq TABLET PO SCH (10:27)
[2019-03-08] MEDS: NITROGLYCERIN 0.4MG/HR TOPICAL PATCH TD SCH (10:30)
--- NOTE | 2019-03-08 12:45 | NUR ---
Patient off unit Patient left unit; AMA form signed and told of safety consequences of leaving.
[2019-03-08 13:08] VITALS: BP 135/65
--- NOTE | 2019-03-08 13:10 | NUR ---
Patient Returns Patient returned to unit.
--- NOTE | 2019-03-08 14:33 | NUR ---
assessment Patient is a 48 year old female who is alert and oriented. Patients cognitive abilities are intact. Prior to admission patient lived home with family and functioned independently. Patient informed me she is able to care for her own ADLs. Per patient she will return home to her prior living arrangements post discharge and she will have transport home. Patient informed me her PCP is Dr Roach. I informed patient she has a right to speak to a case management social worker regarding all care. I informed patient she has a right to participate in any and all discharge planning. Patient is aware of visiting hours on the hospital floor. I informed patient she has a right to privacy. Patient does not have a POA and advanced directive. I have offered patient information on POA and advanced directives. I informed the patient the advantages and benefits of having an Advanced Directive. Patient verbalized understanding and agreed to discharge plan. Addendum: 03/08/19 at 1434 by Alexandria RODRIGUEZ Amended: Links added.
--- NOTE | 2019-03-08 15:47 | NUR ---
Pt walked out of the hospital to smoke.
[2019-03-08 17:31] VITALS: BP 121/74
[2019-03-08 17:42] VITALS: BP 121/74
--- NOTE | 2019-03-08 19:20 | NUR ---
OPENING NOTE Assumed care of patient who is alert and oriented, with disheveled appearance. Currently on 2L N/C with no distress noted. Reports 9/10 pain to wounds on BLE. Pain management options discussed with patient. Dressings to BLE are intact with minimal serous drainage noted. Surrounding tissue is pink and taut. Dressing to right wrist is CDI, pulse present. No bleeding or bruising noted. POC discussed with patient who verbalizes understanding. Bed is in low locked position with side rails up x2. Call light is within reach. Encouraged to call for assistance when needed. WIll continue to monitor for changes PRN.
--- NOTE | 2019-03-08 19:34 | NUR ---
RT NOTE PT WAS SEEN BY RT FOR PRN HHN TX. PT IS SLEEPING WITHOUT SOB OR DISTRESS NOTED. HR 67, RR 250, BS CLEAR/DIM WITH SLIGHT SNORING, POX 97% ON 3L NASAL CANNULA. NO PRN TX INDICATED AT THIS TIME. PT HAS A BEDSIDE POX, BUT IT IS NOT IN USE. CONT ORDERED Addendum: 03/08/19 at 2 by Olga Machado RT Amended: Links added.
[2019-03-08] MEDS: LORazepam 0.5 MG TAB PO PRN (20:54)
[2019-03-08] MEDS: ATORVASTATIN 20 MG TAB PO SCH (21:49)
[2019-03-08 22:00] VITALS: BP 137/76
[2019-03-09] MEDS: ACCU-CHEK COMFORT CURVE STRIP VI SCH ×4 (00:21→11:31)
--- NOTE | 2019-03-09 01:15 | NUR ---
Received call from [employer] stating patient is of telemetry monitoring. Leads replaced and patient is in sinus rhythm at 65.
[2019-03-09] MEDS: InsuLIN REG 1unit/0.01ml Soln (100units/ml) SC SCH ×4 (04:07→11:30)
[2019-03-09 05:00] VITALS: BP 126/51
[2019-03-09 06:01] LABS: Basophils # (auto) 0.1 uL; Basophils % (auto) 1.1 % (0.0-2.0); Eosinophils # (auto) 0.3 uL; Eosinophils % (auto) 4.9 % (0.0-7.0); Hematocrit 41.8 % (36.0-46.0); Hemoglobin 14.2 g/dL (12.2-16.2); Lymphocytes # (auto) 1.6 uL; Lymphocytes % (auto) 31.6 % (10.0-50.0); Mean Corpuscular Hgb Conc. 34.1 g/dL (32.0-36.0); Mean Corpuscular Volume 85.2 fL (80.0-100.0); Monocytes # (auto) 0.5 uL; Monocytes % (auto) 9.4 % (0.0-12.0); Neutrophils # (auto) 2.7 uL; Nucleated Red Blood Cells % 0.2 %; Platelet Count (auto) 193 10^3/uL (140-450); Red Blood Cells 4.91 10^6/uL (4.0-5.20); Red Cell Distribution Width 16.2 % (11.8-14.3); White Blood Cell 5.1 10^3/uL (4.4-10.8)
[2019-03-09] MEDS: FUROSEMIDE 20 MG TAB PO SCH (06:02)
[2019-03-09 06:25] LABS: BUN/Creatinine Ratio 19.8; Calcium 8.1 mg/dL (8.5-10.1); Potassium 3.7 mmol/L (3.5-5.1)
--- NOTE | 2019-03-09 07:14 | NUR ---
Respiratory note: Assessed pt for prn medneb tx. HR 72, RR 20, POX 94% on 3L NC. Breath sounds diminished throughout. No s/s of respiratory distress noted. Medneb tx not indicated at this time. Advised pt to call for RT if tx is needed.
--- NOTE | 2019-03-09 07:15 | NUR ---
Opening Shift Note Assumed care of patient, awake and alert. No S/S of distress/SOB, pt. reports bilateral lower extremities pain of 8/10, will medicate per MD orders. Respirations are even and unlabored on 2L O2 via NC. Updated on POC and instructed to call for assistance as needed, pt. verbalized understanding. Bed locked in lowest position, side rails up x2, call light within reach. Will continue to monitor for changes Q1hr and PRN.
[2019-03-09] MEDS: HYDROcodone-ACET 5/325MG TAB PO PRN (08:20)
[2019-03-09] MEDS: Ensure HIGH Protein Chocolate 8oz Bottle PO SCH ×2 (08:21→11:31)
[2019-03-09 09:00] VITALS: BP 121/76
[2019-03-09] MEDS: FAMOTIDINE 20 MG TAB PO SCH (10:40)
[2019-03-09] MEDS: SACUBITRIL-VALSARTAN 24mg/26mg TAB PO SCH (10:42)
[2019-03-09] MEDS: CARVEDILOL 12.5 MG TAB PO SCH (10:43)
[2019-03-09] MEDS: POTASSIUM CHL 10 Meq TABLET PO SCH (10:45)
[2019-03-09] MEDS: ASPirin 81 mg TAB PO SCH (10:45)
[2019-03-09] MEDS: CIPROFLOXACIN HCL 500 MG TAB PO SCH (10:46)
[2019-03-09] MEDS: CLOPIDOGREL BISULFATE 75 MG TAB PO SCH (10:46)
[2019-03-09] MEDS: AZITHROMYCIN 250 MG TAB PO SCH (10:48)
[2019-03-09] MEDS: NITROGLYCERIN 0.4MG/HR TOPICAL PATCH TD SCH (10:49)
[2019-03-09] MEDS: LORazepam 0.5 MG TAB PO PRN (11:25)
--- NOTE | 2019-03-09 12:48 | NUR ---
Nutrition Follow-up Notes Wt.: 130.6 kg today Pt. with excellent appetite and good PO intake 75-100% x 3 days. Tolerating CCHO diet well. No reported GI distress at this time. Est. Needs: 1850 kcal to 2250 kcal (15-18 kcal/kgBW), 75 gms to 97 gms pro (1.0-1.3 gms/kgIBW: 75 kg). Will continue to monitor pertinent labs and reassess nutrient need prn Labs: BUN 20H, BG 194H, Ca 8.1L, POC glucose readings all >180 mg/dL Skin: Fermin 18, mod risk, venous stasis ulceration to BLE GI: BM x 1 today PES: 1.) Altered nutrition related lab values RT acute/chronic medical condition AEB hyperglycemia, hypocalcemia, elev. renal labs, HbA1c,Trop I, mod hypoalbuminemia 2.) Obesity RT food intake more than body requirement AEB 183% IBW, BMI 39.5 kg/m2 and increased body adiposity Monitor: PO intake, tolerance to diet, labs (BG), skin integrity, GI function PO intake to meet >75% estimated kcal and protein needs F/U: 3-5 days Rec. 1) Continue CCHO diet as ordered and as tolerated. Consider ONS Glucerna if PO intake <75% estimated needs.
[2019-03-09 13:00] VITALS: BP 153/93
[2019-03-09 14:19] VITALS: BP 153/93
--- NOTE | 2019-03-09 15:00 | NUR ---
Discharge instructions given as ordered. Encourage to follow up with PMD as instructed. All questions and concerns addressed. Patient verbalized understanding. Medication reconciliation form completed and copy given to patient. IV removed with catheter intact, pressure dressing applied. Patient refused DC wound photos. Telemetry unit returned to ICU. Patient taken to vehicle via wheelchair with all personal belongings, accompanied by staff and family member. No distress noted at time of departure.
[2019-03-22] MEDS ORDERED: CLOP75TA28 PO (12:12)
[2019-03-22] MEDS ORDERED: CAR125T PO (12:12)
[2019-03-22] MEDS ORDERED: LEVO75TA6 PO (12:12)
[2019-03-22] MEDS ORDERED: SACC250C PO (12:12)
[2019-03-22] MEDS ORDERED: POTA1TAB61 PO (12:12)
[2019-03-22] MEDS ORDERED: FURO40TA4 PO (12:12)
[2019-03-22] MEDS ORDERED: CLIN300C8 PO (12:12)
[2019-03-22] MEDS ORDERED: LOSA-69 PO (12:12)
[2019-03-22] MEDS ORDERED: ASPI81CH43 PO (12:12)
[2019-03-22] MEDS ORDERED: INSLANTI SC (12:18)
[2019-04-19] MEDS ORDERED: CLIN300C8 PO (11:27)
[2019-04-19] MEDS ORDERED: CEPH-37 PO (11:27)
[2019-04-19] MEDS ORDERED: SACC250C PO (11:27)
== END 2019-03-09 14:55 | disposition home or self-care (01) | DRG 720 ==
LOC: ER 23:22 → TELE 23:23 → TELE-CENTR 03-04 17:19
PROVIDERS: ADMIT Nurse Practitioner Acute Care; ATTEND Internal Medicine Pulmonary Disease
PROC: 4A023N7 Measurement of Cardiac Sampling and Pressure, Left Heart, Percutaneous Approach (ICD-10-PCS; principal; 2019-03-07)
PROC: B2111ZZ Fluoroscopy of Multiple Coronary Arteries using Low Osmolar Contrast (ICD-10-PCS; 2019-03-07)
PROC: B2151ZZ Fluoroscopy of Left Heart using Low Osmolar Contrast (ICD-10-PCS; 2019-03-07)
DX: A41.9 Sepsis, unspecified organism (principal); I21.4 Non-ST elevation (NSTEMI) myocardial infarction; I50.43 Acute on chronic combined systolic (congestive) and diastolic (congestive) heart failure; J18.1 Lobar pneumonia, unspecified organism; I42.7 Cardiomyopathy due to drug and external agent; I13.0 Hypertensive heart and chronic kidney disease with heart failure and stage 1 through stage 4 chronic kidney disease, or unspecified chronic kidney disease; E11.21 Type 2 diabetes mellitus with diabetic nephropathy; Z68.41 Body mass index [BMI] 40.0-44.9, adult; E11.22 Type 2 diabetes mellitus with diabetic chronic kidney disease; N18.3 Chronic kidney disease, stage 3 (moderate); L03.115 Cellulitis of right lower limb; L03.116 Cellulitis of left lower limb; E87.6 Hypokalemia; J44.1 Chronic obstructive pulmonary disease with (acute) exacerbation; I25.5 Ischemic cardiomyopathy; E03.9 Hypothyroidism, unspecified; E11.65 Type 2 diabetes mellitus with hyperglycemia; N39.0 Urinary tract infection, site not specified; E78.00 Pure hypercholesterolemia, unspecified; E66.9 Obesity, unspecified; Z88.5 Allergy status to narcotic agent; F41.9 Anxiety disorder, unspecified; F17.210 Nicotine dependence, cigarettes, uncomplicated; F32.9 Major depressive disorder, single episode, unspecified; F15.90 Other stimulant use, unspecified, uncomplicated; I25.10 Atherosclerotic heart disease of native coronary artery without angina pectoris; J44.0 Chronic obstructive pulmonary disease with (acute) lower respiratory infection; Z79.02 Long term (current) use of antithrombotics/antiplatelets; Z79.82 Long term (current) use of aspirin; Z79.84 Long term (current) use of oral hypoglycemic drugs; Z79.899 Other long term (current) drug therapy; Z80.1 Family history of malignant neoplasm of trachea, bronchus and lung; Z80.3 Family history of malignant neoplasm of breast; Z80.41 Family history of malignant neoplasm of ovary; Z80.8 Family history of malignant neoplasm of other organs or systems; Z81.8 Family history of other mental and behavioral disorders; Z82.0 Family history of epilepsy and other diseases of the nervous system; Z82.3 Family history of stroke; Z82.49 Family history of ischemic heart disease and other diseases of the circulatory system; Z82.5 Family history of asthma and other chronic lower respiratory diseases; Z83.3 Family history of diabetes mellitus; Z82.62 Family history of osteoporosis; Z86.14 Personal history of Methicillin resistant Staphylococcus aureus infection; Z95.5 Presence of coronary angioplasty implant and graft; Z91.14 Patient's other noncompliance with medication regimen; Z95.810 Presence of automatic (implantable) cardiac defibrillator; Z99.81 Dependence on supplemental oxygen; I25.2 Old myocardial infarction
CPT/HCPCS: 36415; 36600; 71045; 80048; 80053; 80307; 81001; 82805; 82962; 83036; 83605; 83880; 84443; 84484; 85025; 85379; 85610; 85730; 86850; 86900; 86901; 87040; 87070; 87077; 87081; 87086; 87186; 87205; 93005; 93458; 93926; 93970; 94640; 94760; 94761; 96361; 96365; 96366; 96375; 99152; G0378; J0696; J1815; J2250; J2405; J3490; Q9967

== ENCOUNTER 2019-03-14 06:30 | Inpatient (IN) | payer MEDICAID ==
[~2019-03-14] VITALS: Ht 177.8 cm; Wt 113.4 kg
[2019-03-14] MEDS ORDERED: CLINDAMYCIN 600MG IV 50 ML IV ONE (07:00)
[2019-03-14 07:10] LABS: Basophils # (auto) 0.1 uL; Basophils % (auto) 1.3 % (0.0-2.0); Eosinophils # (auto) 0.2 uL; Eosinophils % (auto) 2.2 % (0.0-7.0); Hematocrit 47.4 % (36.0-46.0); Hemoglobin 15.9 g/dL (12.2-16.2); Lymphocytes # (auto) 1.6 uL; Lymphocytes % (auto) 21.5 % (10.0-50.0); Mean Corpuscular Hemoglobin 28.8 pg (28.0-32.0); Mean Corpuscular Hgb Conc. 33.4 g/dL (32.0-36.0); Monocytes # (auto) 0.5 uL; Monocytes % (auto) 6.5 % (0.0-12.0); Neutrophils % (auto) 68.5 % (37.0-80.0); Nucleated Red Blood Cells % 0.1 %; Platelet Count (auto) 184 10^3/uL (140-450); Red Blood Cells 5.52 10^6/uL (4.0-5.20); Red Cell Distribution Width 16.3 % (11.8-14.3); White Blood Cell 7.3 10^3/uL (4.4-10.8)
[2019-03-14 07:26] LABS: Albumin 3.3 g/dL (3.4-5.0); Calcium 8.6 mg/dL (8.5-10.1); Magnesium 1.9 mg/dL (1.6-2.6); Potassium 3.9 mmol/L (3.5-5.1)
[2019-03-14 07:27] LABS: INR 1.06 (0.9-1.15); Partial Thromboplastin Time 25.9 sec (23.64-32.05)
[2019-03-14 07:31] LABS: Bilirubin, Total 1.8 mg/dL (0.2-1.0); Total Protein 7.4 g/dL (6.4-8.2)
[2019-03-14 07:32] LABS: BUN/Creatinine Ratio 11.8
[2019-03-14] MEDS ORDERED: ENOXAPARIN SOD 120 MG/0.8 ML SYRINGE SC ONE (07:45)
[2019-03-14 07:52] LABS: Lactic Acid w/Reflex 2.3 mmol/L (0.4-2.0)
[2019-03-14] MEDS ORDERED: cloNIDine HCL 0.1 MG TAB PO ONE (09:15)
[2019-03-14] MEDS ORDERED: cloNIDine HCL 0.1 MG TAB ONE (09:23)
[2019-03-14] MEDS ORDERED: MEPERIDINE HCL (25 MG/ML) 1ML VIAL IV PRN (09:30)
[2019-03-14] MEDS ORDERED: traMADol HCL 50 MG TAB PO PRN (09:30)
[2019-03-14] MEDS ORDERED: MORPHINE SULF INJ 2 MG/ML SYRINGE 1ML IV PRN (09:30)
[2019-03-14] MEDS ORDERED: DEXTROSE (50%) 50ML SYRG IV PRN (09:30)
[2019-03-14] MEDS ORDERED: NITROGLYCERIN 0.4 MG SL TAB SL PRN (09:30)
[2019-03-14] MEDS ORDERED: VANCOMYCIN PER PHARMACY 0 MG IV SCH (09:45)
[2019-03-14] MEDS ORDERED: LOSARTAN POTASSIUM 50 MG TAB PO SCH (10:00)
[2019-03-14] MEDS ORDERED: metOLazone 5 MG TAB PO SCH (10:00)
[2019-03-14] MEDS ORDERED: cefTRIAXone 1GM/50ML D5W 50 ML IV SCH (10:00)
[2019-03-14] MEDS ORDERED: CLOPIDOGREL BISULFATE 75 MG TAB PO SCH (10:00)
[2019-03-14] MEDS ORDERED: ASPirin 81 mg TAB PO SCH (10:00)
[2019-03-14] MEDS ORDERED: FUROSEMIDE 40 MG TAB PO SCH (10:00)
[2019-03-14] MEDS ORDERED: FAMOTIDINE 20 MG TAB PO SCH (10:00)
[2019-03-14] MEDS ORDERED: MAGNESIUM OXIDE 400 MG TAB PO ONE (10:15)
[2019-03-14] MEDS ORDERED: POTASSIUM CHL 20 Meq TABLET PO ONE (10:15)
[2019-03-14] MEDS ORDERED: VANCOMYCIN 1GM/250ML 250 ML IV SCH (11:00)
[2019-03-14] MEDS ORDERED: ACCU-CHEK COMFORT CURVE STRIP VI SCH (11:30)
[2019-03-14] MEDS ORDERED: InsuLIN REG 1unit/0.01ml Soln (100units/ml) SC SCH (11:30)
[2019-03-14 12:29] VITALS: BP 138/100
[2019-03-14] MEDS ORDERED: LABETALOL HCL 5 MG/ML ML 20ML VIAL IV PRN (12:45)
[2019-03-14] MEDS ORDERED: FUROSEMIDE 20 MG/2 ML VIAL IV ONE (13:30)
[2019-03-14] MEDS ORDERED: CARVEDILOL 12.5 MG TAB PO SCH (18:00)
[2019-03-14] MEDS ORDERED: ATORVASTATIN 20 MG TAB PO SCH (22:00)
== END 2019-03-14 14:38 | disposition left against medical advice (07) | DRG 190 ==
LOC: EDSEX 06:30 → EDBD 06:30 → ER 06:36 → TELE 06:37
PROVIDERS: ADMIT Nurse Practitioner Acute Care; ATTEND Nurse Practitioner Acute Care
DX: I21.4 Non-ST elevation (NSTEMI) myocardial infarction (principal); I50.43 Acute on chronic combined systolic (congestive) and diastolic (congestive) heart failure; E11.22 Type 2 diabetes mellitus with diabetic chronic kidney disease; L03.115 Cellulitis of right lower limb; E44.1 Mild protein-calorie malnutrition; L03.116 Cellulitis of left lower limb; N18.3 Chronic kidney disease, stage 3 (moderate); I13.0 Hypertensive heart and chronic kidney disease with heart failure and stage 1 through stage 4 chronic kidney disease, or unspecified chronic kidney disease; E66.9 Obesity, unspecified; E78.5 Hyperlipidemia, unspecified; E78.00 Pure hypercholesterolemia, unspecified; F15.10 Other stimulant abuse, uncomplicated; F17.210 Nicotine dependence, cigarettes, uncomplicated; I25.10 Atherosclerotic heart disease of native coronary artery without angina pectoris; I25.2 Old myocardial infarction; J44.9 Chronic obstructive pulmonary disease, unspecified; K21.9 Gastro-esophageal reflux disease without esophagitis; Z59.0 Homelessness; Z79.02 Long term (current) use of antithrombotics/antiplatelets; Z79.82 Long term (current) use of aspirin; Z79.84 Long term (current) use of oral hypoglycemic drugs; Z79.899 Other long term (current) drug therapy; Z80.41 Family history of malignant neoplasm of ovary; Z80.3 Family history of malignant neoplasm of breast; Z80.1 Family history of malignant neoplasm of trachea, bronchus and lung; Z80.8 Family history of malignant neoplasm of other organs or systems; Z81.8 Family history of other mental and behavioral disorders; Z82.0 Family history of epilepsy and other diseases of the nervous system; Z82.3 Family history of stroke; Z82.49 Family history of ischemic heart disease and other diseases of the circulatory system; Z82.5 Family history of asthma and other chronic lower respiratory diseases; Z82.62 Family history of osteoporosis; Z83.3 Family history of diabetes mellitus; Z91.14 Patient's other noncompliance with medication regimen; Z95.5 Presence of coronary angioplasty implant and graft; Z95.810 Presence of automatic (implantable) cardiac defibrillator; F32.9 Major depressive disorder, single episode, unspecified; F41.9 Anxiety disorder, unspecified; Z53.21 Procedure and treatment not carried out due to patient leaving prior to being seen by health care provider
CPT/HCPCS: 36415; 36600; 71045; 80053; 82805; 82962; 83605; 83735; 83880; 84484; 85025; 85610; 85730; 87040; 93005; G0378; J0696; J3490

== ENCOUNTER 2019-03-15 18:08 | Inpatient (IN) | payer MEDICAID ==
[~2019-03-15] VITALS: Ht 177.8 cm; Wt 114.4 kg
[2019-03-16 00:44] LABS: Basophils # (auto) 0 uL; Basophils % (auto) 0.6 % (0.0-2.0); Eosinophils # (auto) 0.3 uL; Eosinophils % (auto) 4.1 % (0.0-7.0); Hematocrit 45.1 % (36.0-46.0); Hemoglobin 15.2 g/dL (12.2-16.2); Lymphocytes % (auto) 27.9 % (10.0-50.0); Mean Corpuscular Hemoglobin 28.9 pg (28.0-32.0); Mean Corpuscular Hgb Conc. 33.7 g/dL (32.0-36.0); Mean Corpuscular Volume 85.7 fL (80.0-100.0); Monocytes # (auto) 0.5 uL; Monocytes % (auto) 6.5 % (0.0-12.0); Neutrophils # (auto) 4.3 uL; Neutrophils % (auto) 60.9 % (37.0-80.0); Nucleated Red Blood Cells % 0.1 %; Platelet Count (auto) 207 10^3/uL (140-450); Red Blood Cells 5.27 10^6/uL (4.0-5.20); Red Cell Distribution Width 16.7 % (11.8-14.3)
[2019-03-16 01:01] LABS: Albumin 3.1 g/dL (3.4-5.0); BUN/Creatinine Ratio 11.7; Calcium 8.5 mg/dL (8.5-10.1); Magnesium 1.8 mg/dL (1.6-2.6); Potassium 3.6 mmol/L (3.5-5.1)
[2019-03-16 01:06] LABS: Bilirubin, Total 1.3 mg/dL (0.2-1.0); Total Protein 7.2 g/dL (6.4-8.2)
[2019-03-16] MEDS ORDERED: cloNIDine HCL 0.1 MG TAB PO ONE (03:45)
[2019-03-16 05:10] LABS: Urine Bacteria FEW /hpf (None Seen); Urine Blood 1+ /uL (Negative); Urine Hyaline Cast MOD /lpf (0 - 2); Urine Mucus FEW (None Seen); Urine Specific Gravity 1.018 (1.001-1.035); Urine WBC 266 /hpf (0 - 5)
[2019-03-16 05:23] LABS: Alcohol, Urine < 3.0 mg/dL (0-5); Amphetamine Screen, Urine POSITIVE (NEGATIVE); Barbiturate Scree,Urine NEGATIVE (NEGATIVE); Benzodiazephine Screen, Urine NEGATIVE (NEGATIVE); Cannabinoid Screen, Urine NEGATIVE (NEGATIVE); Cocaine Screen, Urine NEGATIVE (NEGATIVE); Opiate Scree,Urine NEGATIVE (NEGATIVE); Phencyclidine Screen, Urine NEGATIVE (NEGATIVE)
[2019-03-16] MEDS ORDERED: cefTRIAXone 1GM/50ML D5W 50 ML IV ONE (06:00)
[2019-03-16] MEDS ORDERED: DEXTROSE (50%) 50ML SYRG IV PRN (07:00)
[2019-03-16] MEDS ORDERED: ONDANSETRON HCL 4 MG/2 ML VIAL IV PRN (07:00)
[2019-03-16] MEDS ORDERED: NITROGLYCERIN 0.4 MG SL TAB SL PRN (07:00)
[2019-03-16] MEDS ORDERED: MORPHINE SULF INJ 2 MG/ML SYRINGE 1ML IV PRN (07:00)
[2019-03-16] MEDS ORDERED: ENOXAPARIN SOD 120 MG/0.8 ML SYRINGE SC SCH (07:30)
[2019-03-16] MEDS: CLINDAMYCIN 600MG IV 50 ML IV SCH ×3 (08:07→22:08)
[2019-03-16] MEDS: LEVOTHYROXINE SODIUM 25 MCG TAB PO SCH (08:09)
[2019-03-16] MEDS: cefTRIAXone 1GM/50ML D5W 50 ML IV SCH (09:26)
--- NOTE | 2019-03-16 10:10 | NUR ---
Telemetry admit from ER [facility] admitted to Telemetry unit after SBAR received. Patient oriented to Malgorzata Choi, primary RN, unit, room, bed, and unit policies regarding patient care and visiting hours. Patient now on continuous telemetry monitoring, tele box # 16 and telemetry reading on arrival to unit is . Patient placed on bedside oxygen, weighed by bedscale and encouraged to call if they need something. All questions and concerns addressed, patient verbalized understanding. Note: ]
--- NOTE | 2019-03-16 10:15 | NUR ---
PATIENT IS ALERT ORIENTED X4, ABLE TO VERBALIS HER NEEDS AND AMBULATE, PATIENT IS TALL AND BIG, OBESE, BILATERAL LOWER WITH SKIN ERYTHEMA, DRY BLISTERS, AND BILATERAL FEET DRY SKIN, BOTH FEET APPEAR VERY COLD TO TOUCH WITH POSITIVE DORSALIS PULSES, ROOM ORIENTATION GIVEN TO PT, CALL LIGHT WITHIN REACH.
--- NOTE | 2019-03-16 10:30 | NUR ---
ADMISSION WOUND PHOTO FOR BOTH LOWER EXTREMITIES PER PROTOCOL
[2019-03-16] MEDS: PANTOPRAZOLE 40 MG TAB PO SCH (11:28)
[2019-03-16] MEDS: POTASSIUM CHL 20 Meq TABLET PO SCH (11:28)
[2019-03-16] MEDS: ASPirin 81 mg TAB PO SCH (11:29)
[2019-03-16] MEDS: CLOPIDOGREL BISULFATE 75 MG TAB PO SCH (11:29)
[2019-03-16] MEDS: LOSARTAN POTASSIUM 50 MG TAB PO SCH (11:29)
[2019-03-16] MEDS: CARVEDILOL 12.5 MG TAB PO SCH ×2 (11:29→22:08)
[2019-03-16] MEDS: InsuLIN REG 1unit/0.01ml Soln (100units/ml) SC SCH ×3 (11:36→23:51)
[2019-03-16] MEDS: ACCU-CHEK COMFORT CURVE STRIP VI SCH ×3 (11:36→23:46)
--- NOTE | 2019-03-16 12:53 | NUR ---
DR ORTEGA AT BED SIDE FOLLOWING UP ON PT WITH NEW ORDERS, A NEW CARDIOLOGY CONSULT OF Zaida PEREA NOTED
[2019-03-16 13:00] VITALS: BP 142/90
[2019-03-16] MEDS ORDERED: MAGNESIUM SULFATE 1GM/100ML 100 ML IV ONE (14:00)
[2019-03-16 17:00] VITALS: BP 132/89
[2019-03-16] MEDS: FUROSEMIDE 40 MG/4 ML VIAL IV SCH (17:51)
--- NOTE | 2019-03-16 18:32 | NUR ---
PATIENT CONTINUE STABLE, EDUCATION REGARDING FLUID RESTRICTION GIVEN TO PT, VERBALIS UNDERSTANDING
--- NOTE | 2019-03-16 19:30 | NUR ---
Opening Shift Note Assumed care of patient, awake and alert. No S/S of distress/SOB. Instructed on POC and to call for assist PRN, will continue to monitor for changes Q1hr and PRN.
--- NOTE | 2019-03-16 20:24 | NUR ---
UPON ASSESSMENTS, PATIENT HAS REDNESS, SWELLING, AND TIGHTNESS IN JUAN C LOWER EXTREMITIES. PAIN IS 10 OF 10 PER PATIENT IN RIGHT LEG. PATIENT DOES NOT HAVE ANY PRN PAIN MEDICATION. WILL PAGE DR. PEREA FOR NEW ORDERS.
--- NOTE | 2019-03-16 20:27 | NUR ---
RECEIVED NEW ORDERS FOR DILAUDID .5 MG Q 3 HRS PRN FOR PAIN. WILL INPUT ORDERS AND ADMINISTER ACCORDINGLY.
[2019-03-16] MEDS: HYDROmorphone HCL 2 MG/ML VL IV PRN (20:55)
[2019-03-16 22:00] VITALS: BP 141/93
[2019-03-17] MEDS: HYDROmorphone HCL 2 MG/ML VL IV PRN ×6 (02:55→21:30)
[2019-03-17 05:00] VITALS: BP 132/95
[2019-03-17] MEDS: ACCU-CHEK COMFORT CURVE STRIP VI SCH ×4 (05:34→23:10)
[2019-03-17] MEDS: CLINDAMYCIN 600MG IV 50 ML IV SCH ×3 (05:35→21:30)
[2019-03-17] MEDS: FUROSEMIDE 40 MG/4 ML VIAL IV SCH ×2 (05:35→17:47)
[2019-03-17] MEDS: InsuLIN REG 1unit/0.01ml Soln (100units/ml) SC SCH ×4 (05:39→23:11)
[2019-03-17] MEDS: LEVOTHYROXINE SODIUM 25 MCG TAB PO SCH (06:06)
[2019-03-17 09:00] VITALS: BP 124/79
--- NOTE | 2019-03-17 09:20 | NUR ---
DR. PEREA IN TO SEE PT. PER MD CONTINUE ON LASIX.
[2019-03-17] MEDS: cefTRIAXone 1GM/50ML D5W 50 ML IV SCH (09:56)
[2019-03-17 10:08] LABS: Basophils # (auto) 0.1 uL; Basophils % (auto) 1.2 % (0.0-2.0); Eosinophils # (auto) 0.3 uL; Eosinophils % (auto) 4.9 % (0.0-7.0); Hematocrit 44.6 % (36.0-46.0); Hemoglobin 14.7 g/dL (12.2-16.2); Lymphocytes # (auto) 1.2 uL; Lymphocytes % (auto) 18.4 % (10.0-50.0); Mean Corpuscular Hemoglobin 28.3 pg (28.0-32.0); Mean Corpuscular Hgb Conc. 32.9 g/dL (32.0-36.0); Mean Corpuscular Volume 86.1 fL (80.0-100.0); Monocytes # (auto) 0.5 uL; Monocytes % (auto) 6.8 % (0.0-12.0); Neutrophils # (auto) 4.5 uL; Neutrophils % (auto) 68.7 % (37.0-80.0); Nucleated Red Blood Cells % 0.2 %; Platelet Count (auto) 206 10^3/uL (140-450); Red Blood Cells 5.19 10^6/uL (4.0-5.20); Red Cell Distribution Width 16.9 % (11.8-14.3); White Blood Cell 6.6 10^3/uL (4.4-10.8)
[2019-03-17 10:14] LABS: Calcium 8.4 mg/dL (8.5-10.1); Magnesium 1.7 mg/dL (1.6-2.6); Potassium 4.2 mmol/L (3.5-5.1)
[2019-03-17 10:22] LABS: BUN/Creatinine Ratio 16.3; Bilirubin, Total 1.3 mg/dL (0.2-1.0); Total Protein 7.1 g/dL (6.4-8.2)
--- NOTE | 2019-03-17 10:25 | NUR ---
LAB VALUE FOR TROPONIN: 1.610 DR. PEREA AWARE. LAB VALUE TRENDING DOWN.
[2019-03-17] MEDS: PANTOPRAZOLE 40 MG TAB PO SCH (10:28)
[2019-03-17] MEDS: CARVEDILOL 12.5 MG TAB PO SCH ×2 (10:28→21:37)
[2019-03-17] MEDS: CLOPIDOGREL BISULFATE 75 MG TAB PO SCH (10:29)
[2019-03-17] MEDS: LOSARTAN POTASSIUM 50 MG TAB PO SCH (10:29)
[2019-03-17] MEDS: ASPirin 81 mg TAB PO SCH (10:29)
[2019-03-17] MEDS: POTASSIUM CHL 20 Meq TABLET PO SCH (10:29)
--- NOTE | 2019-03-17 11:39 | NUR ---
WOUND CARE PROVIDED TO RLE RUPTURED BLISTER, PT TOLERATED PROCEDURE WELL. WOUND CLEANSED AND DRESSED WITH OPTIFOAM.
[2019-03-17] MEDS ORDERED: MAGNESIUM SULFATE 1GM/100ML 100 ML IV ONE (12:00)
[2019-03-17 13:00] VITALS: BP 130/91
[2019-03-17 17:00] VITALS: BP 126/79
--- NOTE | 2019-03-17 19:30 | NUR ---
RECEIVED PATIENT FROM DAY SHIFT RN. PATIENT RESTING IN BED. NO S/S OF DISTRESS NOTED. C/O RIGHT LOWER LEG PAIN @ 7/10 AFTER MEDICATION GIVEN EARLIER. REINFORCED SCHEDULE OF PAIN MANAGEMENT. WILL COME BACK FOR PAIN MEDICATION LATER WHEN THE TIME IS DUE AND PER PATIENT REQUESTS. DRESSING C/D/I. POC INSTRUCTED AND ENCOURAGED PATIENT TO CALL FOR CALENDER TENDER IF NEEDED. BED IN LOWEST POSITION WITH SIDE RAILS UP X 2. CALL LEIJA WITHIN REACH. CONTINUE TO MONITOR FOR CHANGES Q1H AND PRN.
--- NOTE | 2019-03-17 20:14 | NUR ---
ASSISTED PATIENT TO BATHROOM AND BACK TO BED WITH STEADY GAIT. PATIENT TOLERATED WELL. NO S/S OF DISTRESS NOTED. CONTINUE TO MONITOR.
--- NOTE | 2019-03-17 21:45 | NUR ---
MEDICATED PATIENT FOR PAIN @ 01/14. CONTINUE TO MONITOR.
[2019-03-17 22:00] VITALS: BP 136/82
[2019-03-17] MEDS ORDERED: INSULIN LANTUS (GLARGINE) 1 /0.01ml (100units/ml) SC SCH (22:00)
--- NOTE | 2019-03-17 23:20 | NUR ---
ACCU-CHECK, BS 169. INSULIN GIVEN ORDERED. CONTINUE TO MONITOR.
[2019-03-18] MEDS: HYDROmorphone HCL 2 MG/ML VL IV PRN ×5 (01:19→22:24)
--- NOTE | 2019-03-18 01:19 | NUR ---
PATIENT C/O PAIN @ 02/14. MEDICATED PATIENT ORDERED. CONTINUE TO MONITOR.
--- NOTE | 2019-03-18 02:12 | NUR ---
PATIENT INSISTED TO REMOVE THE DRESSING ON HER RIGHT LOWER LEG AND STATED THAT THE DRESSING CAUSED PAIN ON HER LEG. INSTRUCTED PATIENT THE BENEFITS OF COVERING HER WOUND WITH DRESSING. PATIENT VERBALIZED UNDERSTANDING BUT COULD NOT STAND ON IT. DRESSING REMOVED. PATIENT STATED FEELING BETTER. CONTINUE TO MONITOR.
[2019-03-18 05:00] VITALS: BP 112/82
[2019-03-18] MEDS: FUROSEMIDE 40 MG/4 ML VIAL IV SCH ×2 (05:31→18:15)
[2019-03-18] MEDS: CLINDAMYCIN 600MG IV 50 ML IV SCH ×3 (05:32→22:21)
[2019-03-18] MEDS: ACCU-CHEK COMFORT CURVE STRIP VI SCH ×4 (05:32→22:23)
[2019-03-18] MEDS: InsuLIN REG 1unit/0.01ml Soln (100units/ml) SC SCH ×4 (05:44→22:23)
--- NOTE | 2019-03-18 05:44 | NUR ---
ACCU-CHECK, BS 182. INSULIN GIVEN ORDERED. MEDICATED PATIENT FOR PAIN @ 01/14. CONTINUE TO MONITOR.
--- NOTE | 2019-03-18 06:09 | NUR ---
PATIENT SLEEPING. NO S/S OF DISTRESS AND PAIN NOTED. CONTINUE CARE.
[2019-03-18] MEDS: LEVOTHYROXINE SODIUM 25 MCG TAB PO SCH (06:14)
[2019-03-18 07:05] LABS: Calcium 8.7 mg/dL (8.5-10.1); Magnesium 1.9 mg/dL (1.6-2.6); Potassium 3.6 mmol/L (3.5-5.1)
[2019-03-18 07:13] LABS: BUN/Creatinine Ratio 22.2
--- NOTE | 2019-03-18 07:33 | NUR ---
RECEIVED CRITICAL LAB VALUE, TROP 1.42, FROM 1.62 YESTERDAY. REPORT TO DAY SHIFT TEJAS BRYAN TO MD. BRYAN VERBALIZED UNDERSTANDING. CONTINUE CARE.
[2019-03-18 08:00] VITALS: BP 133/77
[2019-03-18] MEDS: cefTRIAXone 1GM/50ML D5W 50 ML IV SCH (08:55)
[2019-03-18] MEDS ORDERED: POTASSIUM CHL 20 Meq TABLET PO SCH (10:00)
[2019-03-18] MEDS: ASPirin 81 mg TAB PO SCH (11:15)
[2019-03-18] MEDS: PANTOPRAZOLE 40 MG TAB PO SCH (11:20)
[2019-03-18] MEDS: CARVEDILOL 12.5 MG TAB PO SCH ×2 (11:22→22:22)
[2019-03-18] MEDS: CLOPIDOGREL BISULFATE 75 MG TAB PO SCH (11:24)
[2019-03-18] MEDS: LOSARTAN POTASSIUM 50 MG TAB PO SCH (11:30)
--- NOTE | 2019-03-18 11:41 | NUR ---
Nutrition Assessment Notes please see attached link for complete assessment Est. Needs ABW [id number] kcal (20-23 kcal/kgBW), 72-90 gms pro (0.8-1.0 gms/kgBW r/t elev RFT). Will continue to monitor pertinent labs and reassess nutrient need prn Addendum: 03/18/19 at [address] Amended: Links added.
[2019-03-18 12:00] VITALS: BP 127/73
[2019-03-18] MEDS ORDERED: MAGNESIUM SULFATE 1GM/100ML 100 ML IV ONE (12:30)
[2019-03-18] MEDS ORDERED: POTASSIUM CHL 20 Meq TABLET PO ONE (12:30)
[2019-03-18 17:17] VITALS: BP 91/52
[2019-03-18 21:00] VITALS: BP 140/73
[2019-03-18] MEDS: INSULIN LANTUS (GLARGINE) 1 /0.01ml (100units/ml) SC SCH (22:23)
[2019-03-19] MEDS: HYDROmorphone HCL 2 MG/ML VL IV PRN ×7 (02:40→23:22)
[2019-03-19 05:00] VITALS: BP 128/81
[2019-03-19] MEDS: CLINDAMYCIN 600MG IV 50 ML IV SCH ×3 (06:19→21:44)
[2019-03-19] MEDS: FUROSEMIDE 40 MG/4 ML VIAL IV SCH ×2 (06:19→17:24)
[2019-03-19] MEDS: ACCU-CHEK COMFORT CURVE STRIP VI SCH ×3 (06:20→17:56)
[2019-03-19 06:31] LABS: Calcium 8.5 mg/dL (8.5-10.1); Magnesium 2.1 mg/dL (1.6-2.6); Potassium 4.3 mmol/L (3.5-5.1)
[2019-03-19 06:36] LABS: BUN/Creatinine Ratio 20.5
[2019-03-19] MEDS: InsuLIN REG 1unit/0.01ml Soln (100units/ml) SC SCH ×3 (06:38→17:17)
[2019-03-19] MEDS: LEVOTHYROXINE SODIUM 25 MCG TAB PO SCH (06:54)
[2019-03-19] MEDS ORDERED: ENOXAPARIN SOD 40 MG/0.4 ML SYRINGE SC SCH (07:30)
[2019-03-19 08:00] VITALS: BP 119/72
[2019-03-19] MEDS: cefTRIAXone 1GM/50ML D5W 50 ML IV SCH (08:22)
[2019-03-19] MEDS: CLOPIDOGREL BISULFATE 75 MG TAB PO SCH (10:18)
[2019-03-19] MEDS: PANTOPRAZOLE 40 MG TAB PO SCH (10:18)
[2019-03-19] MEDS: CARVEDILOL 12.5 MG TAB PO SCH ×2 (10:18→21:45)
[2019-03-19] MEDS: POTASSIUM CHL 10 Meq TABLET PO SCH (10:19)
[2019-03-19] MEDS: ASPirin 81 mg TAB PO SCH (10:20)
[2019-03-19] MEDS: LOSARTAN POTASSIUM 50 MG TAB PO SCH (10:20)
[2019-03-19 12:00] VITALS: BP 131/78
[2019-03-19 17:00] VITALS: BP 115/79
[2019-03-19 21:00] VITALS: BP 126/69
[2019-03-19] MEDS: INSULIN LANTUS (GLARGINE) 1 /0.01ml (100units/ml) SC SCH (21:45)
[2019-03-19] MEDS: BACITRACIN TOP OINT 1 UD PKG TOP SCH (21:50)
--- NOTE | 2019-03-19 23:15 | NUR ---
OPENING NOTE- NOC SHIFT PATIENT IS ALERT AND ORIENTED X4. PATIENT REPORTS PAIN TO RIGHT PORTER. SHE STATES THAT THE PAIN IS GREATER DURING THE NIGHT. PATIENT IS IN BED, BED IS LOCKED IN LOWEST POSITION, BED RAILS UP X2 AND HEAD OF BED IS UP >30 DEGREES FOR SAFETY PRECAUTIONS. DISCUSSED POC WITH PATIENT AND INSTRUCTED PATIENT TO CALL PRN; PATIENT VERBALIZED UNDERSTANDING. WILL CONTINUE TO MONITOR Q1H AND PRN.
[2019-03-20] MEDS: ACCU-CHEK COMFORT CURVE STRIP VI SCH ×4 (00:04→18:28)
[2019-03-20] MEDS: InsuLIN REG 1unit/0.01ml Soln (100units/ml) SC SCH ×4 (00:04→18:32)
[2019-03-20] MEDS: HYDROmorphone HCL 2 MG/ML VL IV PRN ×5 (03:08→18:27)
[2019-03-20 04:30] VITALS: BP 136/91
--- NOTE | 2019-03-20 05:30 | NUR ---
PATIENT REPORTS THAT SHE IS NOT FEELING SIGNIFICANT RELIEF WITH DOSE OF DILAUDID. SHE STATES THAT SHE HAS NOT BEEN ABLE TO SLEEP AND THAT SHE HAS NOT REACHED A LEVEL OF COMFORT.
[2019-03-20 06:12] LABS: BUN/Creatinine Ratio 24.2; Calcium 8.7 mg/dL (8.5-10.1); Potassium 4.1 mmol/L (3.5-5.1)
[2019-03-20] MEDS: CLINDAMYCIN 600MG IV 50 ML IV SCH ×3 (06:13→21:57)
[2019-03-20] MEDS: FUROSEMIDE 40 MG/4 ML VIAL IV SCH ×2 (06:14→18:28)
[2019-03-20] MEDS: LEVOTHYROXINE SODIUM 25 MCG TAB PO SCH (06:14)
--- NOTE | 2019-03-20 07:31 | NUR ---
CLOSING NOTE- NOC SHIFT ENDORSED PATIENT CARE TO DAY SHIFT NURSE GARETT LAZARO. PATIENT IS ALERT AND ORIENTED. NO S/SX OF DISTRESS OR SOB.
--- NOTE | 2019-03-20 07:45 | NUR ---
Opening Shift Note Assumed care of patient, awake and alert. No S/S of distress/SOB or pain. Instructed on POC and to call for assist PRN, will continue to monitor for changes Q1hr and PRN. Bed locked in lowest position with two side rails up and call light in reach.
[2019-03-20 08:00] VITALS: BP 139/81
[2019-03-20] MEDS: cefTRIAXone 1GM/50ML D5W 50 ML IV SCH (09:02)
[2019-03-20] MEDS: POTASSIUM CHL 10 Meq TABLET PO SCH (09:04)
[2019-03-20] MEDS: CLOPIDOGREL BISULFATE 75 MG TAB PO SCH (09:04)
[2019-03-20] MEDS: ASPirin 81 mg TAB PO SCH (09:04)
[2019-03-20] MEDS: LOSARTAN POTASSIUM 50 MG TAB PO SCH (09:04)
[2019-03-20] MEDS: PANTOPRAZOLE 40 MG TAB PO SCH (09:04)
[2019-03-20] MEDS: CARVEDILOL 12.5 MG TAB PO SCH ×2 (09:05→21:57)
--- NOTE | 2019-03-20 09:40 | NUR ---
DR PEREA ROUNDING PER DR PEREA PATIENT MAY SHOWER.
--- NOTE | 2019-03-20 11:15 | NUR ---
WOUND CARE NOTE: IN TO SEE PATIENT AT THIS TIME PER WOUND CARE CONSULT REQUEST. PATIENT NOTED TO HAVE WOUNDS TO BLE UPON ADMIT. WOUND PHOTOS TAKEN AT THIS TIME FOR REFERENCE BY BEDSIDE NURSE. PATIENT ADMITTED TO [facility] WITH DIAGNOSIS OF CHEST PAIN. PATIENT HAS CHRONIC VENOUS STASIS ULCERS THAT ARE CURRENTLY CLOSED, NON DRAINING. SHE HAS XEROSIS, FUNGAL NAILS NOTED. MD HAS ORDERED FOR BID APPLICATION OF BACITRACIN TO THE AREA. SKIN/WOUND CARE PLAN IMPLEMENTED. PATIENT WOULD BENEFIT FROM ELEVATION OF BLE UP ONTO PILLOWS FOR EDEMA CONTROL, DAILY/PRN DRESSING CHANGE TO ANY WOUND ON BLE IF OPEN/DRAINING, BID APPLICATION WITH BACITRACIN ORDERED BY DR. CHAMBERS, TO BLE, CONTINUED MONITORING BY WOUND CARE TEAM
[2019-03-20] MEDS: BACITRACIN TOP OINT 1 UD PKG TOP SCH ×2 (11:42→21:58)
--- NOTE | 2019-03-20 11:50 | NUR ---
DR CHAMBERS ROUNDING ORDERS RECEIVED WILL IMPLEMENT. DILAUDID 1 MG Q 6
[2019-03-20 12:00] VITALS: BP 134/93
--- NOTE | 2019-03-20 13:45 | NUR ---
PATIENT SIGNED AMA TO GO DOWNSTAIRS. EDUCATED PATIENT ON THE RISKS, PATIENT VERBALIZED UNDERSTANDING. DOCUMENT SIGNED IN CHART.
[2019-03-20 16:48] VITALS: BP 118/66
--- NOTE | 2019-03-20 19:15 | NUR ---
PATIENT IS ALERT AND ORIENTED. PATIENT IS SITTING UP IN BED. FAMILY AT BEDSIDE; GOOD FAMILY DYNAMICS NOTED. PATIENT REPORTS PAIN 9/10 TOR RIGHT LOWER EXTREMITY; WILL PROVIDE PAIN MEDICATION ORDERED. BED IS LOCKED AT LOWEST POSITION, BED RAILS ARE UP X2 AND HEAD OF BED IS UP 30 DEGREES; PERSONAL BELONGINGS WITHIN REACH, CALL LIGHT WITHIN REACH. WILL CONTINUE TO MONITOR Q1H AND PRN.
--- NOTE | 2019-03-20 21:52 | NUR ---
WOUND CARE TO BILATERAL LOWER EXTREMITY CLEANED BILATERAL LOWER EXTREMITIES WITH WOUND CLEANSER, PAT DRY USING STERILE GAUZE, APPLIED BACITRACIN ORDERED. WRAPPED RIGHT LEG WITH KERLIX. APPLIED OPTIFOAM TO LEFT LOWER EXTREMITY. PATIENT TOLERATED WELL.
[2019-03-20] MEDS: INSULIN LANTUS (GLARGINE) 1 /0.01ml (100units/ml) SC SCH (21:58)
[2019-03-20 23:15] VITALS: BP 135/68
[2019-03-21] MEDS: InsuLIN REG 1unit/0.01ml Soln (100units/ml) SC SCH ×4 (00:34→17:46)
[2019-03-21] MEDS: ACCU-CHEK COMFORT CURVE STRIP VI SCH ×4 (00:35→17:45)
[2019-03-21] MEDS: HYDROmorphone HCL 2 MG/ML VL IV PRN ×4 (00:35→18:58)
[2019-03-21 05:36] VITALS: BP 125/75
[2019-03-21] MEDS: CLINDAMYCIN 600MG IV 50 ML IV SCH ×3 (06:26→21:39)
[2019-03-21] MEDS: FUROSEMIDE 40 MG/4 ML VIAL IV SCH ×2 (06:27→18:06)
[2019-03-21] MEDS: LEVOTHYROXINE SODIUM 25 MCG TAB PO SCH (06:27)
[2019-03-21 06:51] LABS: BUN/Creatinine Ratio 21.6; Calcium 8.4 mg/dL (8.5-10.1); Potassium 3.9 mmol/L (3.5-5.1)
--- NOTE | 2019-03-21 07:15 | NUR ---
CLOSING NOTE- NOC SHIFT PATIENT IS RESTING IN BED. ENDORSED PATIENT CARE TO DAY SHIFT NURSE BARBARA LAZARO.
--- NOTE | 2019-03-21 07:20 | NUR ---
Open Shift Note Received report on patient, awake and sitting up in bed. Patient shows no signs of distress at this time but states having pain 10/10 in right lower leg. Discussed POC with patient as well as pain management, patient verbalized understanding. Bed in lowest locked position, side rails up x2 and call light within reach. Will continue to monitor.
[2019-03-21 08:30] VITALS: BP 145/83
[2019-03-21] MEDS: cefTRIAXone 1GM/50ML D5W 50 ML IV SCH (09:41)
[2019-03-21] MEDS: PANTOPRAZOLE 40 MG TAB PO SCH (09:42)
[2019-03-21] MEDS: CARVEDILOL 12.5 MG TAB PO SCH ×2 (09:43→21:40)
[2019-03-21] MEDS: POTASSIUM CHL 10 Meq TABLET PO SCH (09:43)
[2019-03-21] MEDS: ASPirin 81 mg TAB PO SCH (09:43)
[2019-03-21] MEDS: CLOPIDOGREL BISULFATE 75 MG TAB PO SCH (09:43)
[2019-03-21] MEDS: LOSARTAN POTASSIUM 50 MG TAB PO SCH (09:44)
[2019-03-21 12:30] VITALS: BP 129/76
--- NOTE | 2019-03-21 12:42 | NUR ---
Nutrition Follow-up Notes Wt.: 117.7 kg of yesterday Pt's asleep, no immediate family member at bedside during rounds this morning. Pt's no signs of distress noted earlier, currently on Consistent Standard Carb: 60 gms/meal, Cardiac: 2 gms Na, Low Chol, Low Fat diet with adequate PO intake aeb 85% ave. consumed meals (x6) in last 2.5 days. Est. Needs ABW [id number] kcal (20-23 kcal/kgBW), 72-90 gms pro (0.8-1.0 gms/kgBW r/t elev RFT). Will continue to monitor pertinent labs and reassess nutrient need prn Labs: Gluc 203 H, BUN 23 H, Cr 1.16 H, Ca 8.4 L; Trop I 1.20 H, Alb 3.0 L Skin: Fermin scale 19, low risk, pt's right meneses blisters per broadcast maintenance technician. Pls refer to latest cutter barrel drum's notes for further details re: tx plans. GI: Pt had 1 BM 03/19/19 per broadcast maintenance technician. PES: Altered nutrition related lab values r/t current/chronic medical condition aeb elev RFT mild hypoalb, hyperglycemia Obesity r/t food intake more than body requirement aeb 173% IBW, BMI 37.2 kg/m2 and increased body adiposity Will continue to monitor PO intake, skin status, pertinent labs and weight trend. F/u in 3 to 5 days. Rec.: 1.) Continue close supervision during meals. 2.) Consider daily MVI with minerals and Asc acid 500 mgs BID. 3.) If Albumin continues trending down, consider Prostat 1 pkt BID. 4.) Refer pt to CDE/RD for further nutrition education and weight monitoring upon discharge. 5.) Continue current plan of care.
--- NOTE | 2019-03-21 14:03 | NUR ---
assessment Patient is a 48 year old female who is alert and oriented. Patients cognitive abilities are intact. Prior to admission patient lived home with friends and functioned independently. Patient informed me she is able to care for her own ADLs. Per patient she will return home to her prior living arrangements post discharge and she will have transport home. Patient informed me her PCP is Dr Olmos. Patient is Positive for amphetamines. I offered patient resources for substance abuse. Patient refused resources at this time. Patient has no ther post discharge needs identified at this time. I informed patient she has a right to speak to a social insurance administrator regarding all care. I informed patient she has a right to participate in any and all discharge planning. Patient is aware of visiting hours on the hospital floor. I informed patient she has a right to privacy. Patient does not have a POA and advanced directive. I have offered patient information on POA and advanced directives. I informed the patient the advantages and benefits of having an Advanced Directive. Patient verbalized understanding and agreed to discharge plan. Addendum: 03/21/19 at 1405 by Alexandria RODRIGUEZ Amended: Links added.
[2019-03-21] MEDS: BACITRACIN TOP OINT 1 UD PKG TOP SCH ×2 (15:55→21:41)
[2019-03-21 16:36] VITALS: BP 116/68
--- NOTE | 2019-03-21 19:03 | NUR ---
Closing Note Patient sitting up in bed, shows no signs of distress at this time. Endorsed care to NOC nurse.
--- NOTE | 2019-03-21 19:10 | NUR ---
OPENING NOTE- NOC SHIFT PATIENT JUST RETURNED TO FLOOR ON AMA TO SMOKE I WAS WALKING IN TO PATIENT ROOM. PATIENT STATES THAT SHE FEELS CLAMMY AND WEAK. I EDUCATED PATIENT REGARDING THE RISKS OF SMOKING AND RISKS OF BEING OFF THE FLOOR; PATIENT VERBALIZED UNDERSTANDING. ASSISTED PATIENT INTO BED, BED LOCKED AT LOWEST. BED RAILS UPX2 AND HEAD OF BED IS UP >30 DEGREES. BEDSIDE TABLE, PERSONAL BELONGINGS AND CALL LIGHT WITHIN REACH. DISCUSSED POC WITH PATIENT AND INSTRUCTED PATIENT TO CALL PRN. WILL CONTINUE TO MONITOR Q1H AND PRN.
[2019-03-21] MEDS: INSULIN LANTUS (GLARGINE) 1 /0.01ml (100units/ml) SC SCH (21:40)
[2019-03-21 21:47] VITALS: BP 125/77
[2019-03-22] MEDS: ACCU-CHEK COMFORT CURVE STRIP VI SCH ×3 (00:57→11:47)
[2019-03-22] MEDS: InsuLIN REG 1unit/0.01ml Soln (100units/ml) SC SCH ×3 (00:57→11:47)
[2019-03-22] MEDS: HYDROmorphone HCL 2 MG/ML VL IV PRN ×3 (00:58→12:48)
--- NOTE | 2019-03-22 03:24 | NUR ---
PATIENT IS SLEEPING COMFORTABLE IN BED. NO S/SX OF DISTRESS, SOB OR PAIN. WILL CONTINUE TO MONITOR Q1H AND PRN.
[2019-03-22 04:46] VITALS: BP 104/64
--- NOTE | 2019-03-22 05:30 | NUR ---
WOUND CARE TO BILATERAL LOWER EXTREMITIES PER ORDERS. DRESSINGS INITIALED, DATED AND TIMED. CULTURE COLLECTED FROM LEFT LEG.
--- NOTE | 2019-03-22 05:45 | NUR ---
CULTURE FROM LEFT LEG SENT TO LAB.
[2019-03-22] MEDS: CLINDAMYCIN 600MG IV 50 ML IV SCH ×2 (05:56→14:00)
[2019-03-22] MEDS: FUROSEMIDE 40 MG/4 ML VIAL IV SCH (05:57)
[2019-03-22] MEDS: LEVOTHYROXINE SODIUM 25 MCG TAB PO SCH (05:57)
--- NOTE | 2019-03-22 06:30 | NUR ---
WITNESSED PATIENT HAVING EPISODES OF SLEEP APNEA. THIS WAS ADDRESSED TO MD BY YESTERDAY'S DAY SHIFT RN. PATIENT STATES THAT SHE WOULD REFUSE TO SLEEP WITH A CPAP.
[2019-03-22 07:03] LABS: Potassium 3.7 mmol/L (3.5-5.1)
--- NOTE | 2019-03-22 07:10 | NUR ---
CLOSING NOTE- NOC SHIFT ENDORSED PATIENT CARE TO DAY SHIFT NURSE BO LAZARO. PATIENT IS RESTING IN BED. NO S/SX OF DISTRESS OR PAIN. PATIENT IS WEARING NC AT 3L. HEAD OF BED IS UP >30 DEGREES FOR SAFETY PRECAUTIONS.
[2019-03-22 07:12] LABS: BUN/Creatinine Ratio 20.7; Calcium 8.5 mg/dL (8.5-10.1)
[2019-03-22 08:00] VITALS: BP 108/74
--- NOTE | 2019-03-22 08:00 | NUR ---
Received pt resting in bed, call light within reach, pt sleepy, pt reports pain on bilateral lower extremities 5/10 and goes back to sleep, pt was given pain medication by security shift supervisor nurse, will continue to monitor pt.
[2019-03-22] MEDS: cefTRIAXone 1GM/50ML D5W 50 ML IV SCH (09:08)
[2019-03-22] MEDS: ASPirin 81 mg TAB PO SCH (09:08)
[2019-03-22] MEDS: CLOPIDOGREL BISULFATE 75 MG TAB PO SCH (09:08)
[2019-03-22] MEDS: POTASSIUM CHL 10 Meq TABLET PO SCH (09:08)
[2019-03-22] MEDS: CARVEDILOL 12.5 MG TAB PO SCH (09:09)
[2019-03-22] MEDS: PANTOPRAZOLE 40 MG TAB PO SCH (09:09)
[2019-03-22] MEDS: LOSARTAN POTASSIUM 50 MG TAB PO SCH (09:10)
[2019-03-22] MEDS: BACITRACIN TOP OINT 1 UD PKG TOP SCH (10:39)
[2019-03-22 12:00] VITALS: BP 135/80
[2019-03-22] MEDS ORDERED: CAR125T PO (12:12)
[2019-03-22] MEDS ORDERED: FURO40TA4 PO (12:12)
[2019-03-22] MEDS ORDERED: CLIN300C8 PO (12:12)
[2019-03-22] MEDS ORDERED: CLOP75TA28 PO (12:12)
[2019-03-22] MEDS ORDERED: POTA1TAB61 PO (12:12)
[2019-03-22] MEDS ORDERED: ASPI81CH43 PO (12:12)
[2019-03-22] MEDS ORDERED: LOSA-69 PO (12:12)
[2019-03-22] MEDS ORDERED: LEVO75TA6 PO (12:12)
[2019-03-22] MEDS ORDERED: SACC250C PO (12:12)
[2019-03-22] MEDS ORDERED: INSLANTI SC (12:18)
--- NOTE | 2019-03-22 12:20 | NUR ---
Dr. Perez at bed side to see pt, doctor discussed the plan of care with pt.
[2019-03-22 13:29] VITALS: BP 135/80
--- NOTE | 2019-03-22 15:00 | NUR ---
Discharge instructions given as ordered. Encourage to follow up with PMD and cash applications specialist Dr. Josey Morales as instructed. All questions and concerns addressed. Patient verbalized understanding. Medication reconciliation form completed and copy given to patient. No home medications held in Pharmacy, and no needed vaccines to be given. IV removed with catheter intact, pressure dressing applied. Telemetry unit returned to ICU. Called taxi to take pt home, awaiting for taxi.
--- NOTE | 2019-03-22 15:35 | NUR ---
Patient taken to taxi via wheelchair with all personal belongings, accompanied by staff. No distress noted at time of departure.
[2019-04-19] MEDS ORDERED: CEPH-37 PO (11:27)
[2019-04-19] MEDS ORDERED: CLIN300C8 PO (11:27)
[2019-04-19] MEDS ORDERED: SACC250C PO (11:27)
== END 2019-03-22 17:19 | disposition home or self-care (01) | DRG 812 ==
LOC: EDUNIT# 18:08 → EDBD 18:08 → ER 18:19 → TELE 18:20 → TELE-EAST 03-16 10:07
PROVIDERS: ADMIT Nurse Practitioner; ATTEND Internal Medicine
DX: T43.621A Poisoning by amphetamines, accidental (unintentional), initial encounter (principal); I21.A1 Myocardial infarction type 2; I50.43 Acute on chronic combined systolic (congestive) and diastolic (congestive) heart failure; J96.11 Chronic respiratory failure with hypoxia; I42.0 Dilated cardiomyopathy; I42.7 Cardiomyopathy due to drug and external agent; E11.21 Type 2 diabetes mellitus with diabetic nephropathy; L03.115 Cellulitis of right lower limb; E66.01 Morbid (severe) obesity due to excess calories; E11.22 Type 2 diabetes mellitus with diabetic chronic kidney disease; L03.116 Cellulitis of left lower limb; N39.0 Urinary tract infection, site not specified; J44.9 Chronic obstructive pulmonary disease, unspecified; I87.2 Venous insufficiency (chronic) (peripheral); I13.0 Hypertensive heart and chronic kidney disease with heart failure and stage 1 through stage 4 chronic kidney disease, or unspecified chronic kidney disease; N18.3 Chronic kidney disease, stage 3 (moderate); I25.10 Atherosclerotic heart disease of native coronary artery without angina pectoris; F17.210 Nicotine dependence, cigarettes, uncomplicated; F32.9 Major depressive disorder, single episode, unspecified; F41.9 Anxiety disorder, unspecified; E03.9 Hypothyroidism, unspecified; F15.10 Other stimulant abuse, uncomplicated; Z80.0 Family history of malignant neoplasm of digestive organs; Z99.81 Dependence on supplemental oxygen; Z80.1 Family history of malignant neoplasm of trachea, bronchus and lung; Z80.3 Family history of malignant neoplasm of breast; Z91.19 Patient's noncompliance with other medical treatment and regimen; Z95.810 Presence of automatic (implantable) cardiac defibrillator; Z98.61 Coronary angioplasty status; Z80.41 Family history of malignant neoplasm of ovary; Z80.8 Family history of malignant neoplasm of other organs or systems; Z81.8 Family history of other mental and behavioral disorders; Z82.0 Family history of epilepsy and other diseases of the nervous system; Z82.49 Family history of ischemic heart disease and other diseases of the circulatory system; Z82.62 Family history of osteoporosis; Z83.3 Family history of diabetes mellitus; Z82.5 Family history of asthma and other chronic lower respiratory diseases; Z82.3 Family history of stroke; Z90.49 Acquired absence of other specified parts of digestive tract; Y92.89 Other specified places as the place of occurrence of the external cause; Z71.6 Tobacco abuse counseling; Z68.36 Body mass index [BMI] 36.0-36.9, adult; Z88.5 Allergy status to narcotic agent
CPT/HCPCS: 36415; 71045; 80048; 80053; 80307; 81001; 82962; 83735; 83880; 84484; 85025; 87040; 87077; 87081; 87086; 87186; 87205; 93005; 93926; 93970; 96365; G0378; J0696; J1815; J2405; J3490

== ENCOUNTER 2019-04-16 20:06 | Inpatient (IN) | payer MEDICAID ==
[~2019-04-16] VITALS: Ht 177.8 cm; Wt 130.8 kg
[~2019-04-16 20:06] MED LIST changes: +CLIN300C8 PO; +INSLANTI SC; +LEVO75TA6 PO; -POTA-220 PO; +POTA1TAB61 PO; +SACC250C PO
[2019-04-16 21:03] LABS: Basophils # (auto) 0.2 uL; Basophils % (auto) 1.7 % (0.0-2.0); Eosinophils # (auto) 0.2 uL; Eosinophils % (auto) 2.2 % (0.0-7.0); Hematocrit 44.4 % (36.0-46.0); Lymphocytes # (auto) 1.9 uL; Lymphocytes % (auto) 21.6 % (10.0-50.0); Mean Corpuscular Hemoglobin 28.8 pg (28.0-32.0); Mean Corpuscular Hgb Conc. 33.7 g/dL (32.0-36.0); Mean Corpuscular Volume 85.2 fL (80.0-100.0); Monocytes # (auto) 0.6 uL; Monocytes % (auto) 6.5 % (0.0-12.0); Neutrophils # (auto) 6.1 uL; Nucleated Red Blood Cells % 0.2 %; Platelet Count (auto) 198 10^3/uL (140-450); Red Blood Cells 5.21 10^6/uL (4.0-5.20); Red Cell Distribution Width 16.2 % (11.8-14.3)
[2019-04-16 21:19] LABS: Albumin 3.1 g/dL (3.4-5.0); BUN/Creatinine Ratio 9.5; Calcium 8.1 mg/dL (8.5-10.1)
[2019-04-16 21:24] LABS: Bilirubin, Total 2.1 mg/dL (0.2-1.0); Total Protein 7.1 g/dL (6.4-8.2)
[2019-04-16] MEDS ORDERED: HYDROmorphone HCL 2 MG/ML VL IV ONE (23:15)
[2019-04-16] MEDS ORDERED: ONDANSETRON HCL 4 MG/2 ML VIAL IV ONE (23:15)
[2019-04-16 23:19] LABS: Urine Bacteria FEW /hpf (None Seen); Urine Blood 1+ /uL (Negative); Urine Hyaline Cast FEW /lpf (0 - 2); Urine Mucus FEW (None Seen); Urine Specific Gravity 1.021 (1.001-1.035); Urine WBC 231 /hpf (0 - 5)
[2019-04-16 23:34] LABS: Alcohol, Urine < 3.0 mg/dL (0-5); Amphetamine Screen, Urine POSITIVE (NEGATIVE); Barbiturate Scree,Urine NEGATIVE (NEGATIVE); Benzodiazephine Screen, Urine NEGATIVE (NEGATIVE); Cannabinoid Screen, Urine NEGATIVE (NEGATIVE); Cocaine Screen, Urine NEGATIVE (NEGATIVE); Opiate Scree,Urine NEGATIVE (NEGATIVE); Phencyclidine Screen, Urine NEGATIVE (NEGATIVE)
[2019-04-17] VITALS (8 sets, daily range): BP systolic 124–150; BP diastolic 82–106
[2019-04-17] MEDS ORDERED: VANCOMYCIN PER PHARMACY 0 MG IV SCH (00:15)
[2019-04-17] MEDS ORDERED: PIPERACILLIN-TAZOB 3.375GM 100 ML IV ONE (00:15)
[2019-04-17] MEDS ORDERED: POTASSIUM CHL 20MEQ/100ML 100 ML IV ONE (00:30)
[2019-04-17] MEDS ORDERED: HYDROcodone-ACET 5/325MG TAB PO PRN (01:00)
[2019-04-17] MEDS ORDERED: NITROGLYCERIN 0.4 MG SL TAB SL PRN (01:00)
[2019-04-17] MEDS ORDERED: ACETAMINOPHEN 325 MG TAB PO PRN (01:00)
[2019-04-17] MEDS ORDERED: MORPHINE SULFATE 4 MG/ML SYR/VIAL IV PRN (01:00)
[2019-04-17] MEDS ORDERED: MORPHINE SULF INJ 2 MG/ML SYRINGE 1ML IV PRN ×2 (01:00→09:30)
[2019-04-17] MEDS ORDERED: ONDANSETRON HCL 4 MG/2 ML VIAL IV PRN (01:00)
[2019-04-17] MEDS ORDERED: DOCUSATE SOD 100 MG CAP PO PRN (01:00)
[2019-04-17] MEDS ORDERED: FUROSEMIDE 20 MG/2 ML VIAL IV ONE (01:15)
[2019-04-17] MEDS: VANCOMYCIN 1GM/250ML 250 ML IV SCH ×2 (01:56→02:51)
[2019-04-17] MEDS ORDERED: hydrALAZINE HCL 25 MG TAB PO ONE (02:45)
[2019-04-17] MEDS ORDERED: diphenhdrAMINE HCL 50 MG/1 ML VL IV PRN (02:45)
--- NOTE | 2019-04-17 04:15 | NUR ---
Telemetry admit from ER TROY OCAMPO admitted to Telemetry unit after SBAR received. Patient oriented to BRITTNEE MICHAELS, RN primary RN, unit, room, bed, and unit policies regarding patient care and visiting hours. Patient now on continuous telemetry monitoring, tele box # 2 and telemetry reading on arrival to unit is SR. Patient placed on bedside oxygen, weighed by bedscale and encouraged to call if they need something. All questions and concerns addressed, patient verbalized understanding.
[2019-04-17 06:00] LABS: Basophils # (auto) 0.1 uL; Basophils % (auto) 0.9 % (0.0-2.0); Eosinophils # (auto) 0.3 uL; Eosinophils % (auto) 3.3 % (0.0-7.0); Hematocrit 43.3 % (36.0-46.0); Hemoglobin 14.5 g/dL (12.2-16.2); Lymphocytes # (auto) 1.8 uL; Lymphocytes % (auto) 22.8 % (10.0-50.0); Mean Corpuscular Hemoglobin 28.8 pg (28.0-32.0); Mean Corpuscular Hgb Conc. 33.5 g/dL (32.0-36.0); Monocytes # (auto) 0.5 uL; Monocytes % (auto) 6.8 % (0.0-12.0); Neutrophils # (auto) 5.3 uL; Neutrophils % (auto) 66.2 % (37.0-80.0); Nucleated Red Blood Cells % 0.4 %; Platelet Count (auto) 176 10^3/uL (140-450); Red Blood Cells 5.03 10^6/uL (4.0-5.20); Red Cell Distribution Width 16.1 % (11.8-14.3)
[2019-04-17 06:22] LABS: BUN/Creatinine Ratio 8.4; Calcium 7.8 mg/dL (8.5-10.1)
[2019-04-17 06:27] LABS: Bilirubin, Total 2.1 mg/dL (0.2-1.0)
--- NOTE | 2019-04-17 06:31 | NUR ---
Critical lab: RN received call regarding patient with a critical troponin. MD already aware of patient's critical troponin levels rising. RN to continue to monitor and assess patient.
--- NOTE | 2019-04-17 06:39 | NUR ---
RN received orders from Hospitalist d/t patients elevated trops that have been trending up. New orders received and verified.
[2019-04-17] MEDS ORDERED: POTASSIUM CHL 20 Meq TABLET PO ONE (06:45)
--- NOTE | 2019-04-17 07:11 | NUR ---
Opening Shift Note Assumed care of patient, awake and alert. No S/S of distress/SOB. Instructed on POC and to call for assist PRN, will continue to monitor for changes Q1hr and PRN. Bed set in lowest locked position with side rails up x 2 for safety.
[2019-04-17] MEDS: CARVEDILOL 12.5 MG TAB PO SCH ×2 (07:56→18:12)
[2019-04-17] MEDS ORDERED: metFORMIN HYDROCHLORIDE 500 MG TAB PO SCH ×2 (08:00→10:00)
[2019-04-17] MEDS ORDERED: FUROSEMIDE 40 MG/4 ML VIAL IV ONE (08:15)
[2019-04-17] MEDS ORDERED: DEXTROSE (50%) 50ML SYRG IV PRN (09:15)
[2019-04-17] MEDS ORDERED: FUROSEMIDE 40 MG TAB PO SCH (10:00)
[2019-04-17] MEDS: CLOPIDOGREL BISULFATE 75 MG TAB PO SCH (10:14)
[2019-04-17] MEDS: LOSARTAN POTASSIUM 50 MG TAB PO SCH (10:15)
[2019-04-17] MEDS: ASPirin 81 mg TAB PO SCH (10:15)
[2019-04-17] MEDS: LEVOTHYROXINE SODIUM 25 MCG TAB PO SCH (10:15)
[2019-04-17] MEDS: metOLazone 5 MG TAB PO SCH (10:32)
--- NOTE | 2019-04-17 10:42 | NUR ---
WOUND CARE NOTE: Wound care into see patient per wound care request regarding Lt and Rt Lower Extremity Ulcers that are noted present on admission. Bedside nurse took photograph of patient's wounds upon admission for reference. Patient is 48 years old female with admitting diagnosis of Acute on Chronic Biventricular Heart Failure. She has history of CHF s/p ICD, CAD s/p PTCA, htn. Skin/wound assessment done with the assistance of patient's nurse, TEJAS Marcelino. Patient has chronic venous stasis ulcers. Ulcer to her Lt anteromedial lower leg is closed and scabbed. One open wound noted to her distal Rt. anteromedial lower leg measuring 2x1x0.2cm. Wound is red, no drainage/odor noted. Patient's BLE has dry, hyperkeratotic peeling skin and fungal toe nails. Cleansed patient's BLE with mild soap and water, patted dry, applied Hydraguard cream to help moisturize skin. Applied Thera honey gel to RLE open wound and covered with Opti foam gentle dressing. Sacral and back examined, no pressure injury noted. Patient tolerated well. RECOMMENDATION:BID/PRN cleaning and application of HYdraguard cream to BLE, Daily/PRN dressing change to Rt lower leg wound per MD order, elevate edematous extremity on pillows to help offload pressure and reduce edema, continue monitoring by wound care while patient is hospitalized. Addendum: 04/17/19 at 1523 by Toma Orozco RN Amended: Links added. Addendum: 04/17/19 at 1524 by Toma Orozco RN Partial toe nail avulsion noted on patient's Rt 2nd and Rt. 4th toe nail. Patient states she must have bumped it on something. Cleansed with Betadine and left open to air.
[2019-04-17] MEDS: ACCU-CHEK COMFORT CURVE STRIP VI SCH ×3 (12:00→23:52)
[2019-04-17] MEDS: InsuLIN REG 1unit/0.01ml Soln (100units/ml) SC SCH ×3 (12:00→23:52)
[2019-04-17] MEDS ORDERED: IPRATROPIUM BROM 0.5 MG/2.5ML INH SOL NEB PRN (12:45)
[2019-04-17] MEDS ORDERED: ALBUTEROL SULF 2.5 MG/0.5ML(0.5%) NEB SOLN NEB PRN (12:45)
[2019-04-17] MEDS: CLINDAMYCIN 300MG IV 50 ML IV SCH ×2 (14:20→21:36)
[2019-04-17] MEDS ORDERED: VANCOMYCIN 1,250 MG in D5W 5% 250 ML IV SCH (15:00)
--- NOTE | 2019-04-17 15:30 | NUR ---
assessment Patient is a 48 year old female who is alert and oriented. Patients cognitive abilities are intact. Prior to admission patient lived home with a friend and functioned independently. Patient informed me she is able to care for her own ADLs. Per patient she will return home to her prior living arrangements post discharge and she will have transport home. Patient informed me her PCP is Dr Olmos. Patient is Positive for amphetamines again on this visit. I offered patient resources for substance abuse. Patient refused resources again. I informed patient the benefits of not using meth and the ramifications to her health if she continues to use. Patient has no other post discharge needs identified at this time. I informed patient she has a right to speak to a social insurance analyst regarding all care. I informed patient she has a right to participate in any and all discharge planning. Patient is aware of visiting hours on the hospital floor. I informed patient she has a right to privacy. Patient does not have a POA and advanced directive. I have offered patient information on POA and advanced directives. I informed the patient the advantages and benefits of having an Advanced Directive. Patient verbalized understanding and agreed to discharge plan. Addendum: 04/17/19 at 1532 by Alexandria RODRIGUEZ Amended: Links added.
[2019-04-17] MEDS: KETOROLAC TROMETH 30 MG/ML 1ML VIAL IV PRN ×2 (16:06→21:37)
[2019-04-17] MEDS: FUROSEMIDE 40 MG/4 ML VIAL IV SCH (18:12)
--- NOTE | 2019-04-17 19:00 | NUR ---
Opening Shift Note Assumed care of patient, awake and alert. No S/S of distress/SOB or pain. Instructed on POC and to call for assist PRN, will continue to monitor for changes Q1hr and PRN.
--- NOTE | 2019-04-17 19:06 | NUR ---
Endorsed care to NOC RN.
[2019-04-17] MEDS: ATORVASTATIN 20 MG TAB PO SCH (21:36)
[2019-04-17] MEDS: INSULIN LANTUS (GLARGINE) 1 /0.01ml (100units/ml) SC SCH (21:36)
--- NOTE | 2019-04-17 22:55 | NUR ---
Respiratory note: PT RECIEVED ON NC 3.5L. PT IS SLEEPING AT THIS TIME. NO RESP DISTRESS NOTED. SPO2 94%, HR 70, RR 20. NO PRN TX INDICATED AT THIS TIME. WILL CONTINUE TO MONITOR PT T/O SHIFT.
--- NOTE | 2019-04-18 00:45 | NUR ---
STAT EKG performed on patient d/t tele monitor picking up a run of V-tach. RN assessed patient and noted patient to be complaining of no pain, discomfort or distress. STAT EKG showed NSR. RN received call from tech unit regarding V-tach reading on the tele monitor and was informed patient just had PVC's and not a run of V-tach.
[2019-04-18] MEDS: KETOROLAC TROMETH 30 MG/ML 1ML VIAL IV PRN ×3 (03:31→16:46)
[2019-04-18 05:06] VITALS: BP 146/76
[2019-04-18] MEDS: CLINDAMYCIN 300MG IV 50 ML IV SCH ×3 (05:35→21:37)
[2019-04-18] MEDS: FUROSEMIDE 40 MG/4 ML VIAL IV SCH ×2 (05:36→17:26)
[2019-04-18] MEDS: ACCU-CHEK COMFORT CURVE STRIP VI SCH ×3 (05:36→17:29)
[2019-04-18] MEDS: InsuLIN REG 1unit/0.01ml Soln (100units/ml) SC SCH ×3 (05:37→17:44)
[2019-04-18 07:00] LABS: Magnesium 1.8 mg/dL (1.6-2.6)
--- NOTE | 2019-04-18 07:02 | NUR ---
Respiratory note: ROUTINE PRN TX ASSESSMENT DONE. HR 77, RR 18, POX 95% ON RA, BREATH SOUNDS ARE CLEAR. NO SOB OR DISTRESS NOTED AT THIS TIME. PT WAS NOTIFY TO HAVE RT PAGE FOR NEEDED MN TX.
--- NOTE | 2019-04-18 07:13 | NUR ---
Opening Shift Note Assumed care of patient, resting with eyes closed. No S/S of distress/SOB or pain. Bed set in lowest locked position with side rails up x2, will continue to monitor for changes Q1hr and PRN.
[2019-04-18] MEDS: CARVEDILOL 12.5 MG TAB PO SCH ×2 (07:37→17:26)
[2019-04-18 08:09] VITALS: BP 153/85
[2019-04-18 09:00] VITALS: BP 153/85
[2019-04-18] MEDS: LOSARTAN POTASSIUM 50 MG TAB PO SCH (10:06)
[2019-04-18] MEDS: ASPirin 81 mg TAB PO SCH (10:06)
[2019-04-18] MEDS: CLOPIDOGREL BISULFATE 75 MG TAB PO SCH (10:06)
[2019-04-18] MEDS: LEVOTHYROXINE SODIUM 25 MCG TAB PO SCH (10:06)
[2019-04-18] MEDS ORDERED: cefTRIAXone 1GM/50ML D5W 50 ML IV ONE (10:30)
--- NOTE | 2019-04-18 10:46 | NUR ---
, Dr. Perez at bedside Updated pt on POC.
[2019-04-18] MEDS ORDERED: MAGNESIUM SULFATE 1GM/100ML 100 ML IV ONE (12:00)
[2019-04-18 13:00] VITALS: BP 111/74
--- NOTE | 2019-04-18 16:30 | NUR ---
PT REPORTS THAT SHE IS WALKING FINE AND DOES NOT NEED P.T.
[2019-04-18 17:00] VITALS: BP 133/81
--- NOTE | 2019-04-18 18:30 | NUR ---
Patient complaint of chest pain 7/10 to the left side of chest. VS: BP: 128/82, O2: 98%, RR: 24, HR: 69. Increased oxygen to 4L/min NC due to patient stating she is experiencing SOB. EKG taken and read by PAPER COATING SUPERVISOR, Sumaya Mccray. New orders received, read back and verified. Will continue to monitor.
[2019-04-18] MEDS ORDERED: LORazepam 2MG/ML-1ML VIAL IV ONE (18:45)
--- NOTE | 2019-04-18 19:30 | NUR ---
Patient is resting in bed with eyes closed. Even and unlabored breathing noted, no signs/ symptoms of distress noted.
--- NOTE | 2019-04-18 19:31 | NUR ---
Endorsed care to NOC RN.
[2019-04-18] MEDS: ATORVASTATIN 20 MG TAB PO SCH (21:37)
[2019-04-18] MEDS: INSULIN LANTUS (GLARGINE) 1 /0.01ml (100units/ml) SC SCH (21:37)
--- NOTE | 2019-04-18 22:12 | NUR ---
Respiratory note: NO PRN TX GIVEN AT THIS TIME, NOT INDICATED. PT SLEEPING COMFORTABLY, NO SOB NOTED. SPO2 96% ON 2L NC, HR 71, RR 16.
[2019-04-18 23:50] VITALS: BP 130/88
[2019-04-19] MEDS: ACCU-CHEK COMFORT CURVE STRIP VI SCH ×3 (00:15→11:29)
[2019-04-19] MEDS: InsuLIN REG 1unit/0.01ml Soln (100units/ml) SC SCH ×3 (00:21→11:28)
--- NOTE | 2019-04-19 01:10 | NUR ---
STAT EKG performed on patient d/t tele monitor picking up a run of V-tach. RN assessed patient and noted patient to be complaining of no pain, discomfort or distress. STAT EKG showed NSR. RN to have hospitalist review strips. Addendum: 04/19/19 at 0145 by BRITTNEE MICHAELS RN RN Patient vitals: BP: 133/88, HR: 78, RR 20, Pulse Ox: 92%, 0/10 pain
[2019-04-19] MEDS: KETOROLAC TROMETH 30 MG/ML 1ML VIAL IV PRN ×2 (01:26→07:04)
--- NOTE | 2019-04-19 01:39 | NUR ---
Hospitalist reviewed EKG strips. RN to continue to monitor and assess patient. Patient remains free of discomfort and distress. Patient stable.
--- NOTE | 2019-04-19 02:27 | NUR ---
STAT EKG performed on patient d/t tele monitor picking up a run of V-tach. RN assessed patient and noted patient to be complaining of no pain, discomfort or distress. STAT EKG showed NSR. RN to have hospitalist review strips. Vitals: BP: 155/91, HR: 73, RR 17, O2 92%, 0/10 pain.
--- NOTE | 2019-04-19 02:40 | NUR ---
Hospitalist reviewed EKG strips. Hospitalist updated on patient condition and cardiac consult is already in progress, and patient has been seen by associate financial analyst. RN to continue to monitor and assess patient. Patient remains free of discomfort and distress. Patient stable.
--- NOTE | 2019-04-19 04:34 | NUR ---
Patient complaining of chest pain, STAT EKG performed, showed Sinus Rhythm. Hospitalist aware. Nitro 0.4mg SL given x 1. RN to continue to monitor and assess patient. Addendum: 04/19/19 at 0444 by BRITTNEE MICHAELS RN RN Vitals: BP: 133/79, HR: 74, RR: 20, Pulse ox 95%, T: 97.9 5/10 pain.
--- NOTE | 2019-04-19 04:39 | NUR ---
RN reassessed patient for chest pain. Patient informed RN her chest pain has resolved with the administration of Nitro 0.4mg. RN to continue to monitor and assess patient. Patient remains stable at this time.
[2019-04-19] MEDS: CLINDAMYCIN 300MG IV 50 ML IV SCH (05:30)
[2019-04-19] MEDS: FUROSEMIDE 40 MG/4 ML VIAL IV SCH (05:31)
[2019-04-19 05:49] VITALS: BP 133/79
[2019-04-19 07:23] LABS: Calcium 8.4 mg/dL (8.5-10.1); Potassium 3.6 mmol/L (3.5-5.1)
[2019-04-19 08:00] VITALS: BP 133/79
--- NOTE | 2019-04-19 08:00 | NUR ---
ASSESSMENT NOTE PT IS ALERT ORIENTED X4, SITTING AT THE SIDE OF THE BED EATING BREAKFAST, STATED < I FEE VERY ANXIOUS> MADE AWARE THAT THE HOSPITAL LIST WILL BE HERE VERY SOON, PT IS ABLE TO AMBULATE NEEDED, DRY DRESSING NOTED AT RT LOWER CHIN AREA, CALL LIGHT WITHIN REACH
[2019-04-19] MEDS: LEVOTHYROXINE SODIUM 25 MCG TAB PO SCH (08:57)
[2019-04-19] MEDS: CLOPIDOGREL BISULFATE 75 MG TAB PO SCH (08:58)
[2019-04-19] MEDS: metOLazone 5 MG TAB PO SCH (08:58)
[2019-04-19] MEDS: ASPirin 81 mg TAB PO SCH (08:59)
[2019-04-19] MEDS: LOSARTAN POTASSIUM 50 MG TAB PO SCH (08:59)
[2019-04-19] MEDS: CARVEDILOL 12.5 MG TAB PO SCH (08:59)
[2019-04-19 09:00] VITALS: BP 157/96
[2019-04-19] MEDS ORDERED: cefTRIAXone 1GM/50ML D5W 50 ML IV SCH (09:00)
--- NOTE | 2019-04-19 10:16 | NUR ---
DR CHAMBERS IS HERE INFORM ME THAT PT HAS ANXIETY, AND GIVE ATIVAN .5 X1, PT MAY DISCHARGE HOME TODAY DR CHAMBERS MADE AWARE OF THE HIGH TROPONIN LEVEL
[2019-04-19] MEDS ORDERED: LORazepam 2MG/ML-1ML VIAL IV ONE (10:30)
--- NOTE | 2019-04-19 10:51 | NUR ---
Respiratory note: PT REFUSED PRN MED NEB TX, NO TX DESIRED NOR INDICATED. NO DISTRESS NOTED, DENIES SOB, STATES SHE IS HAVING SOME ANXIETY. RN CHIKA AT BEDSIDE AND AWARE. HR 78 RR 18 SPO2 96% ON 3L N/C. PT AND RN AWARE TO HAVE RT PAGED IF NEEDED.
[2019-04-19] MEDS ORDERED: CEPH-37 PO ×2 (11:27)
[2019-04-19] MEDS ORDERED: SACC250C PO ×2 (11:27)
[2019-04-19] MEDS ORDERED: CLIN300C8 PO ×2 (11:27)
--- NOTE | 2019-04-19 11:32 | NUR ---
SPOKE WITH DR CHAMBERS OVER THE PHONE MADE AWARE THAT PT STATED < I AM NOT FEELING WELL TO GO HOME>, DR CHAMBERS INFORM ME IF SHE CONTINUE NOT FEELING WELL SHE CAN STAY, AND ALSO SHE PUT AN ORDER OF METEOROLOGICAL ENGINEER DR OCAMPO TO CLEAR PT BEFORE DISCHARGE HOME
[2019-04-19] MEDS ORDERED: diphenhdrAMINE HCL 25 MG CAP PO PRN (11:45)
[2019-04-19] MEDS ORDERED: HYDROcodone-ACET 5/325MG TAB PO PRN (11:45)
[2019-04-19] MEDS ORDERED: CEPHALEXIN 250 MG CAP PO SCH (12:00)
--- NOTE | 2019-04-19 12:04 | NUR ---
PAGE DR OCAMPO TO OBTAIN DISCHARGE CLEARANCE
--- NOTE | 2019-04-19 12:07 | NUR ---
DR OCAMPO CALLED BACK SAID TO DISCHARGE PT HOME AND HAVE HER TO FOLLOW UP OUT PATIENT
--- NOTE | 2019-04-19 12:20 | NUR ---
PT CHANGE HER MIND REGARDING THE DISCHARGE PT STATE < WHEN I AM GOING HOME, I WANT TO GO HOME>
[2019-04-19 12:44] VITALS: BP 157/96
--- NOTE | 2019-04-19 12:49 | NUR ---
REENFORCE WITH PT THE IMPORTANCE TO MAKE APPOINTMENT WITH DR OCAMPO AND FOLLOW UP ON A WEEK, AND STOP TAKING DRUGS OR ALCOHOL, PT VERBALIS UNDERSTANDING
--- NOTE | 2019-04-19 13:20 | NUR ---
RIDE HOME PT CALLED HER FRIEND TO PICK HER UP
--- NOTE | 2019-04-19 13:29 | NUR ---
DISCHARGE WOUND PHOTO IS TAKEN FOR RT LOWER LEG
--- NOTE | 2019-04-19 13:30 | NUR ---
pt stated < i don' t feel good> pt made aware that she can stay one more day, pt stated no i need to go home and lay down
[2019-04-19] MEDS ORDERED: CLINDAMYCIN HCL 150 MG CAP PO SCH (14:00)
--- NOTE | 2019-04-19 14:01 | NUR ---
Discharge instructions given as ordered. Encourage to follow up with PMD as instructed. All questions and concerns addressed. Patient verbalized understanding. Medication reconciliation form completed and copy given to patient. Home medications held in Pharmacy returned to patient. IV removed with catheter intact, pressure dressing applied. Telemetry unit returned to ICU. Patient taken to vehicle via wheelchair with all personal belongings, accompanied by staff. No distress noted at time of departure.
[2019-04-20] MEDS ORDERED: FLORASTOR (S. BOULARDII) 250 MG CAP PO SCH (10:00)
[2019-04-20] MEDS ORDERED: FUROSEMIDE 40 MG TAB PO SCH (10:00)
== END 2019-04-19 14:00 | disposition home or self-care (01) | DRG 205 ==
LOC: ER 20:09 → TELE 20:10 → TELE-EAST 04-17 04:15
PROVIDERS: ADMIT Hospitalist; ATTEND Internal Medicine
DX: I42.7 Cardiomyopathy due to drug and external agent (principal); I21.A1 Myocardial infarction type 2; I50.43 Acute on chronic combined systolic (congestive) and diastolic (congestive) heart failure; J96.11 Chronic respiratory failure with hypoxia; L03.115 Cellulitis of right lower limb; E11.22 Type 2 diabetes mellitus with diabetic chronic kidney disease; E66.01 Morbid (severe) obesity due to excess calories; L03.116 Cellulitis of left lower limb; J44.9 Chronic obstructive pulmonary disease, unspecified; N18.3 Chronic kidney disease, stage 3 (moderate); N39.0 Urinary tract infection, site not specified; F15.10 Other stimulant abuse, uncomplicated; E03.9 Hypothyroidism, unspecified; E87.6 Hypokalemia; F32.9 Major depressive disorder, single episode, unspecified; F41.9 Anxiety disorder, unspecified; I13.0 Hypertensive heart and chronic kidney disease with heart failure and stage 1 through stage 4 chronic kidney disease, or unspecified chronic kidney disease; B95.1 Streptococcus, group B, as the cause of diseases classified elsewhere; I25.10 Atherosclerotic heart disease of native coronary artery without angina pectoris; F17.210 Nicotine dependence, cigarettes, uncomplicated; Z59.0 Homelessness; Z80.0 Family history of malignant neoplasm of digestive organs; Z68.41 Body mass index [BMI] 40.0-44.9, adult; Z95.810 Presence of automatic (implantable) cardiac defibrillator; Z91.19 Patient's noncompliance with other medical treatment and regimen; Z99.81 Dependence on supplemental oxygen; Z95.5 Presence of coronary angioplasty implant and graft; Z80.1 Family history of malignant neoplasm of trachea, bronchus and lung; Z80.3 Family history of malignant neoplasm of breast; Z80.41 Family history of malignant neoplasm of ovary; Z80.8 Family history of malignant neoplasm of other organs or systems; Z81.8 Family history of other mental and behavioral disorders; Z82.0 Family history of epilepsy and other diseases of the nervous system; Z82.49 Family history of ischemic heart disease and other diseases of the circulatory system; Z82.5 Family history of asthma and other chronic lower respiratory diseases; Z83.3 Family history of diabetes mellitus; Z82.62 Family history of osteoporosis; Z82.3 Family history of stroke; Z76.5 Malingerer [conscious simulation]; Z88.5 Allergy status to narcotic agent; Z90.49 Acquired absence of other specified parts of digestive tract; Z71.51 Drug abuse counseling and surveillance of drug abuser
CPT/HCPCS: 36415; 71045; 80048; 80053; 80307; 80320; 81001; 82140; 82962; 83605; 83735; 83880; 84132; 84484; 85025; 87040; 87081; 87086; 93005; 96365; 96367; 96375; G0378; J0696; J1815; J1885; J2405; J2543; J3480; J3490; J7060

== ENCOUNTER 2019-04-22 02:37 | Emergency (ER) | payer MEDICAID, OTHER ==
[~2019-04-22] VITALS: Ht 177.8 cm; Wt 90.7 kg
[~2019-04-22 02:37] MED LIST changes: +CEPH-37 PO
[2019-04-22 03:40] LABS: Basophils # (auto) 0.1 uL; Basophils % (auto) 0.8 % (0.0-2.0); Eosinophils # (auto) 0.3 uL; Eosinophils % (auto) 3.4 % (0.0-7.0); Hematocrit 46.8 % (36.0-46.0); Hemoglobin 15.7 g/dL (12.2-16.2); Lymphocytes # (auto) 1.8 uL; Lymphocytes % (auto) 23.3 % (10.0-50.0); Mean Corpuscular Hemoglobin 28.6 pg (28.0-32.0); Mean Corpuscular Hgb Conc. 33.5 g/dL (32.0-36.0); Mean Corpuscular Volume 85.3 fL (80.0-100.0); Monocytes # (auto) 0.7 uL; Monocytes % (auto) 9.3 % (0.0-12.0); Neutrophils # (auto) 4.9 uL; Neutrophils % (auto) 63.2 % (37.0-80.0); Nucleated Red Blood Cells % 0.8 %; Platelet Count (auto) 214 10^3/uL (140-450); Red Blood Cells 5.48 10^6/uL (4.0-5.20); Red Cell Distribution Width 16.1 % (11.8-14.3); White Blood Cell 7.8 10^3/uL (4.4-10.8)
[2019-04-22 03:57] LABS: Albumin 3.1 g/dL (3.4-5.0); BUN/Creatinine Ratio 17.8; Calcium 8.8 mg/dL (8.5-10.1); Potassium 3.1 mmol/L (3.5-5.1)
[2019-04-22 04:00] LABS: Bilirubin, Total 1.5 mg/dL (0.2-1.0); Total Protein 7.6 g/dL (6.4-8.2)
[2019-04-22] MEDS ORDERED: KETOROLAC TROMETH 30 MG/ML 1ML VIAL IV ONE (07:15)
[2019-04-22] MEDS ORDERED: FUROSEMIDE 40 MG/4 ML VIAL IV ONE (07:15)
[2019-04-22 07:54] VITALS: BP 157/93
[2019-04-22] MEDS ORDERED: POTASSIUM EFFERVESENT TAB 25 MEQ PO ONE (09:00)
== END 2019-04-22 09:24 | disposition home or self-care (01) ==
LOC: ER 02:40
DX: I50.9 Heart failure, unspecified (principal); R60.9 Edema, unspecified; E87.6 Hypokalemia; I13.0 Hypertensive heart and chronic kidney disease with heart failure and stage 1 through stage 4 chronic kidney disease, or unspecified chronic kidney disease; E11.22 Type 2 diabetes mellitus with diabetic chronic kidney disease; E11.65 Type 2 diabetes mellitus with hyperglycemia; N18.9 Chronic kidney disease, unspecified; I25.10 Atherosclerotic heart disease of native coronary artery without angina pectoris; I25.2 Old myocardial infarction; Z79.01 Long term (current) use of anticoagulants; F17.210 Nicotine dependence, cigarettes, uncomplicated; Z90.49 Acquired absence of other specified parts of digestive tract; Z95.0 Presence of cardiac pacemaker; Z88.5 Allergy status to narcotic agent; Z79.4 Long term (current) use of insulin; Z79.82 Long term (current) use of aspirin; Z79.899 Other long term (current) drug therapy; E03.9 Hypothyroidism, unspecified
CPT/HCPCS: 36415; 80053; 83880; 85025; 96374; 96375; 99283; J1885; J1940